=== PATIENT | female | born 1960 | race Caucasian/White ===

== ENCOUNTER 2020-09-29 05:56 | Emergency (ER) | payer MEDICARE, MEDICAID, SELFPAY ==
[2020-09-29 06:04] VITALS: BP 124/58; PULSE 75; RESP 18; TEMP 36.9; O2SAT 98; BMI 29.2
--- NOTE | 2020-09-29 06:45 | XR_ITS ---
EXAMINATION: XR CHEST CLINICAL INFORMATION: Dyspnea COMPARISON: Chest radiograph 04/15/2018 TECHNIQUE: Frontal view of the chest was obtained. FINDINGS: Multiple artifacts overlie the thorax. The cardiomediastinal silhouette is normal in appearance. No effusions or pneumothoraces are visualized. A normal pattern of pulmonary vasculature is noted. No pulmonary consolidation is identified. XR/XR chest 1V IMPRESSION: Normal chest. Lungs clear.
--- NOTE | 2020-09-29 06:51 | ED.SKABFB ---
HPI - Skin/Abscess/Foreign Bdy General Chief complaint: Skin/Abscess/Foreign Body Stated complaint: HIP CELLULITIS,DIFF BREATHING Time Seen by Provider: 09/29/20 06:44 Source: patient and old records reviewed Mode of arrival: ambulatory Limitations: no limitations History of Present Illness complaint: rash Onset (ago): hour(s) (about 5 hours ago noted it around 2am) Tetanus up to date: yes Location: generalized (lower abdomen) Severity: moderate Quality: burning Pain Consistency: constant Relieving factors: movement Exacerbating factors: none Context: none Associated symptoms: fever, chills, rigors, nausea and malaise Treatments prior to arrival: none Related Data Home Medications Medication Instructions Recorded Confirmed albuterol 2 mcg INHALATION Q4H PRN 09/29/20 09/29/20 aripiprazole 5 mg PO DAILY 09/29/20 09/29/20 clonazepam 1 mg PO TID 09/29/20 09/29/20 clonidine HCl 0.1 mg PO Q6H PRN 09/29/20 09/29/20 gabapentin 800 mg PO TID 09/29/20 09/29/20 lamotrigine 200 mg PO DAILY 09/29/20 09/29/20 levothyroxine 175 mcg PO DAILY 09/29/20 09/29/20 omeprazole 20 mg PO BID 09/29/20 09/29/20 Previous Rx's Medication Instructions Recorded cephalexin 500 mg PO BID 7 Days #14 cap 09/29/20 doxycycline hyclate 100 mg PO BID 7 Days #14 cap 09/29/20 hydrocodone-acetaminophen 1 tab PO Q6H PRN #12 tab 09/29/20 Allergies Allergy/AdvReac Type Severity Reaction Status Date / Time adhesive tape [Adhesive Tape] Allergy Mild BURNING Unverified 07/28/20 16:04 RASH ciprofloxacin [From Cipro] Allergy Unknown ANAPHYLAXIS Unverified 07/28/20 16:04 Review of Systems Review of Systems: Constitutional : pos Fever, pos Chills ENT/Mouth : No sore throat, No Rhinorrhea Eyes: No Eye Pain, No Swelling, No Redness Cardiovascular : No Chest Pain, No SOB Respiratory : No Cough, No Sputum Gastrointestinal : No Nausea, No Vomiting, No Diarrhea, No abdominal Pain Genitourinary : No Dysuria, No Hematuria Musculoskeletal : No joint pain, No Myalgias, No Joint Swelling Skin : pos Skin Lesions, positive skin rash Neuro : No Weakness, No Numbness, No Headache Psych : No Anxiety, No Depression Heme/Lymph: No Bruising, No Bleeding,No Lymphadenopathy Endocrine : No Polyuria, No Polydipsia All other systems reviewed and are negative [facility] Past Medical History Attestation statement: The following information was validated with the patient. Medical History Anxiety Cellulitis Cholecystectomy planned Hypothyroid Social History Social History Alcohol intake: never Smoking Status: Current every day smoker Substance Use Type: Marijuana Advance Directives: No Advance Directives Information Provided: No Physical Exam Vital Signs: Vital Signs: Last Vital Signs Temp 98.3 F 09/29/20 08:00 Pulse 77 09/29/20 08:00 Resp 16 09/29/20 08:00 BP 121/71 09/29/20 08:00 Pulse Ox 98 09/29/20 08:00 Body Mass Index 29.2 Appearance: Alert. Oriented X3. No acute distress. Eyes: Pupils equal, round and reactive to light. ENT: Pharynx normal. Neck: Normal inspection. Neck supple. CVS: Normal heart rate and rhythm. Pulses normal. Respiratory: No respiratory distress. Breath sounds normal. Abdomen: Soft and mild ttp along lower abdomen there is a 8cm patch in midline erythematous, no fluctuance, no crepitus, no mass felt - superficial, hot to touch Skin: Skin warm and dry. Normal skin color. Normal skin turgor. Extremities: No lower extremity edema. No calf ttp Neuro: Oriented X 3. No motor deficit. No sensory deficit. Course Course Course Narrative: will admit for IV antibiotics patient now refusing admisison for IV antibiotics, hospitalist has seen patient at this time can be DC with precautions MDM - Skin/Abscess/Foreign Bdy MDM Narrative Medical decision making narrative: 60 yo female with reported history of abdominal wall cellulitis in the past resulting in sepsis and ICU stay x 3 weeks per her history (not found in EMR) here with 5 hours of abdominal wall pain/rash consistent with cellulitis, no crepitus felt, VS stable, no concern for abscess or necrotizing infection at this time, likely admit for IV antibiotics pending workup Lab Data Result diagrams: 09/29/20 08:13 09/29/20 08:13 Labs: Lab Results 09/29/20 09/29/20 09/29/20 Range/Units 08:12 08:12 08:12 WBC (4.8-10.8) X10*3/uL RBC (4.20-5.50) X10*6/uL Hgb (12.0-16.0) g/dl Hct (37-47) % MCV (80-98) fL MCH (27.0-33.0) pg MCHC (31.0-35.0) g/dl RDW (11.0-16.0) % Plt Count (160-400) X10*3/uL MPV (9.4-12.3) fL Immature Gran % (Auto) (0.0-0.4) % Neut % (Auto) (45-73) % Lymph % (Auto) (20-40) % [place] % (Auto) (2-11) % Eos % (Auto) (0-4) % Baso % (Auto) (0-2) % Lymph # (Auto) (1.2-4.9) X10*3/uL [place] # (Auto) (0.1-1.2) X10*3/uL Eos # (Auto) (0.0-0.4) X10*3/uL Baso # (Auto) (0.0-0.2) X10*3/uL Abs Immat Gran (auto) (0.00-0.03) X10*3/uL Absolute Neuts (auto) (2.0-8.3) X10*3/uL Absolute Nucleated RBC (0.0-0.012) X10*3/uL Nucleated RBC % (auto) (0.0-0.2) /100WBC PT 12.7 (10.8-13.0) SEC INR 1.1 (0.9-1.1) APTT 29.7 (24.1-38.0) SEC Sodium (135-145) mmol/L Potassium (3.3-5.1) mmol/l Chloride (96-108) mmol/L Carbon Dioxide (22-29) mmol/L Anion Gap (12-20) BUN (9-16) mg/dL Creatinine (0.5-1.4) mg/dL Estim Creat Clear Calc Estimated GFR Random Glucose (60-115) mg/dL Lactic Acid 1.0 (0.5-2.0) mmol/L Calcium (8.4-10.2) mg/dL Magnesium (1.6-2.6) mg/dL Total Bilirubin (0.0-1.0) mg/dL Direct Bilirubin (0.0-0.5) mg/dL AST (5-31) U/L ALT (0-31) U/L Alkaline Phosphatase (39-117) U/L Total Creatine Kinase (26-140) U/L Total Protein (6.5-8.0) g/dL Albumin (3.5-5.0) g/dL Lipase (8-78) U/L COVID-19 (VICKIE) Negative (Negative) COVID-19 Clin Com See Note 09/29/20 09/29/20 Range/Units 08:13 08:13 WBC 11.0 H (4.8-10.8) X10*3/uL RBC 4.65 (4.20-5.50) X10*6/uL Hgb 14.4 (12.0-16.0) g/dl Hct 42.7 (37-47) % MCV 91.8 (80-98) fL MCH 31.0 (27.0-33.0) pg MCHC 33.7 (31.0-35.0) g/dl RDW 11.9 (11.0-16.0) % Plt Count 242 (160-400) X10*3/uL MPV 9.9 (9.4-12.3) fL Immature Gran % (Auto) 0.2 (0.0-0.4) % Neut % (Auto) 63.8 (45-73) % Lymph % (Auto) 27.2 (20-40) % [place] % (Auto) 7.2 (2-11) % Eos % (Auto) 1.1 (0-4) % Baso % (Auto) 0.5 (0-2) % Lymph # (Auto) 3.0 (1.2-4.9) X10*3/uL [place] # (Auto) 0.8 (0.1-1.2) X10*3/uL Eos # (Auto) 0.1 (0.0-0.4) X10*3/uL Baso # (Auto) 0.1 (0.0-0.2) X10*3/uL Abs Immat Gran (auto) 0.02 (0.00-0.03) X10*3/uL Absolute Neuts (auto) 7.0 (2.0-8.3) X10*3/uL Absolute Nucleated RBC 0.000 (0.0-0.012) X10*3/uL Nucleated RBC % (auto) 0.0 (0.0-0.2) /100WBC PT (10.8-13.0) SEC INR (0.9-1.1) APTT (24.1-38.0) SEC Sodium 140 (135-145) mmol/L Potassium 3.8 (3.3-5.1) mmol/l Chloride 101 (96-108) mmol/L Carbon Dioxide 32 H (22-29) mmol/L Anion Gap 11 L (12-20) BUN 12 (9-16) mg/dL Creatinine 0.68 (0.5-1.4) mg/dL Estim Creat Clear Calc 90.8 Estimated GFR > 60 Random Glucose 110 (60-115) mg/dL Lactic Acid (0.5-2.0) mmol/L Calcium 8.6 (8.4-10.2) mg/dL Magnesium 1.9 (1.6-2.6) mg/dL Total Bilirubin 0.8 (0.0-1.0) mg/dL Direct Bilirubin 0.4 (0.0-0.5) mg/dL AST 11 (5-31) U/L ALT 10 (0-31) U/L Alkaline Phosphatase 70 (39-117) U/L Total Creatine Kinase 23 L (26-140) U/L Total Protein 5.8 L (6.5-8.0) g/dL Albumin 3.7 (3.5-5.0) g/dL Lipase 46 (8-78) U/L COVID-19 (VICKIE) (Negative) COVID-19 Clin Com Discharge Plan Discharge Clinical Impression: Cellulitis Qualifiers: Site of cellulitis: trunk Site of cellulitis of trunk: abdominal wall Qualified Code(s): L03.311 - Cellulitis of abdominal wall Patient Disposition: Home, Self-Care Instructions: Cellulitis (ED) Additional Instructions: return to ED for any worsening symptoms or concerns you were offered admission but refused, come back at any time Prescriptions: New hydrocodone-acetaminophen 5-325 mg tablet 1 tab PO Q6H PRN (Reason: pain) Qty: 12 RF: 0 doxycycline hyclate 100 mg capsule 100 mg PO BID 7 Days Qty: 14 RF: 0 cephalexin 500 mg capsule 500 mg PO BID 7 Days Qty: 14 RF: 0 No Action levothyroxine 175 mcg Tablet 175 mcg PO DAILY RF: 0 clonidine HCl 0.1 mg Tablet 0.1 mg PO Q6H PRN (Reason: Anxiety) RF: 0 lamotrigine 200 mg Tablet 200 mg PO DAILY RF: 0 clonazepam 1 mg Tablet 1 mg PO TID RF: 0 gabapentin 800 mg Tablet 800 mg PO TID RF: 0 omeprazole 20 mg Capsule,Delayed Release(Dr/Ec) 20 mg PO BID RF: 0 albuterol 90 mcg/actuation Aerosol 2 mcg INHALATION Q4H PRN (Reason: Shortness Of Breath) RF: 0 aripiprazole 5 mg Tablet 5 mg PO DAILY RF: 0 Referrals: Chel Rodgers MD [Primary Care Provider] - 2 days
[2020-09-29] MEDS: Morphine Sulfate 4 MG/ML CARTRIDGE IVPUSH (07:05)
[2020-09-29] MEDS: ondansetron HCL 4 MG/2 ML VIAL IVPUSH (07:05)
[2020-09-29] MEDS: 0.9 % Sodium Chloride 1,000 ML 999 ML IVCONT (07:05)
[2020-09-29 08:00] VITALS: BP 121/71; PULSE 77; RESP 16; TEMP 36.8; O2SAT 98
[2020-09-29 08:23] LABS: MANUAL DIFF FLAG NO
[2020-09-29 08:24] LABS: Basophils Absolute Auto 0.1 X10*3/uL (0.0-0.2); Basophils Percent Auto 0.5 % (0-2); Eosinophils Absolute Auto 0.1 X10*3/uL (0.0-0.4); Eosinophils Percent Auto 1.1 % (0-4); Hematocrit 42.7 % (37-47); Hemoglobin 14.4 g/dl (12.0-16.0); Imm Gran Abs Auto 0.02 X10*3/uL (0.00-0.03); Imm Gran Pct Auto 0.2 % (0.0-0.4); Lymphocytes Percent Auto 27.2 % (20-40); Mean Corpuscular HGB Conc 33.7 g/dl (31.0-35.0); Mean Corpuscular Volume 91.8 fL (80-98); Mean Platelet Volume 9.9 fL (9.4-12.3); Monocytes Absolute Auto 0.8 X10*3/uL (0.1-1.2); Monocytes Percent Auto 7.2 % (2-11); Neutrophils Percent Auto 63.8 % (45-73); Platelet Count 242 X10*3/uL (160-400); Red Blood Count 4.65 X10*6/uL (4.20-5.50); Red Cell Distribution Width 11.9 % (11.0-16.0)
[2020-09-29 08:29] LABS: INTERNATIONAL NORM RATIO 1.1 (0.9-1.1); Prothrombin Time 12.7 SEC (10.8-13.0)
[2020-09-29 08:32] LABS: Partial Thromboplastin Time 29.7 SEC (24.1-38.0)
[2020-09-29] MEDS: HYDROmorphone HCl 1 MG/ML SYRINGE IVPUSH (08:33)
[2020-09-29] MEDS: Piperacillin Sodium/Tazobactam 3.375 GM in 0.9 % Sodium Chloride 50 ML IV (08:34)
[2020-09-29] MEDS: vancomycin HCL 1,000 MG in 0.9 % Sodium Chloride 250 ML 270 MG IV (08:37)
[2020-09-29 08:45] LABS: COVID-19 Test Negative (Negative); IDNOW Serial# 9DD0AD1C
[2020-09-29 08:52] LABS: Alanine Aminotransferase 10 U/L (0-31); Albumin Level 3.7 g/dL (3.5-5.0); Alkaline Phosphatase 70 U/L (39-117); Anion Gap 11 (12-20); Aspartate Amino Transferase 11 U/L (5-31); Bilirubin Direct 0.4 mg/dL (0.0-0.5); Bilirubin Total 0.8 mg/dL (0.0-1.0); Blood Urea Nitrogen 12 mg/dL (9-16); Calcium 8.6 mg/dL (8.4-10.2); Carbon Dioxide 32 mmol/L (22-29); Chloride 101 mmol/L (96-108); Creatinine Clr Calc Pharmacy 90.8; Estimated Glomerular Filt Rate > 60; Glucose Random 110 mg/dL (60-115); Lipase 46 U/L (8-78); Magnesium 1.9 mg/dL (1.6-2.6); Potassium 3.8 mmol/l (3.3-5.1); Sodium 140 mmol/L (135-145); Total Protein 5.8 g/dL (6.5-8.0)
== END 2020-09-29 10:45 | disposition home or self-care (01) ==
PROVIDERS: Emergency Provider Emergency Medicine; PCP Internal Medicine
DX: L03.311 Cellulitis of abdominal wall (principal); F12.90 Cannabis use, unspecified, uncomplicated; F17.200 Nicotine dependence, unspecified, uncomplicated; Z71.6 Tobacco abuse counseling; Z79.899 Other long term (current) drug therapy; Z20.828 Contact with and (suspected) exposure to other viral communicable diseases
CPT/HCPCS: 36415; 71045; 80048; 80076; 82550; 83605; 83690; 83735; 85025; 85610; 85730; 87040; 87635; 96365; 96367; 96375; 99284; J1170; J2270; J2405; J2543; J3370

== ENCOUNTER 2021-04-25 03:59 | Emergency (ER) | payer MEDICARE, MEDICAID, SELFPAY ==
--- NOTE | ~2021-04-25 | CT_ITS ---
EXAMINATION: CT ABDOMEN AND PELVIS WITHOUT CONTRAST CLINICAL INFORMATION: Pain out of proportion COMPARISON: 07/23/2018 TECHNIQUE: Multidetector volumetric imaging was performed from the superior aspect of the liver through the pubic symphysis. Sagittal and coronal reformatted images were obtained on the technologist's workstation. This CT examination was performed using dose optimization techniques as appropriate, variously including the following: *Automated exposure control *Adjustment of mA and/or kV according to patient size (this includes techniques or standardized protocols for targeted exams where dose is matched to indication/reason for exam; i.e. extremities or head) *Use of iterative reconstruction technique DLP: 835 mGy-cm FINDINGS: LUNG BASES: The visualized lung bases are unremarkable. LIVER, GALLBLADDER, AND BILIARY TREE: The liver is normal in size, shape, and attenuation. No focal hepatic lesion or biliary ductal dilatation is present. Cholecystectomy. PANCREAS: Unremarkable. SPLEEN: Unremarkable. ADRENAL GLANDS: Unremarkable. KIDNEYS AND URETERS: The kidneys are normal in size, shape, and attenuation. No hydronephrosis, hydroureter, or calculi seen. No perinephric stranding. BLADDER: Unremarkable. GASTROINTESTINAL TRACT: The small and large bowel are unremarkable. The appendix is unremarkable. It seen is haziness of the small bowel mesentery with perivascular sparing compatible with mesenteric panniculitis. ABDOMINAL WALL: Small fat-containing umbilical hernia. LYMPH NODES: Normal. VASCULAR: Aorta mildly atherosclerotic. No aneurysm. PELVIC VISCERA: Unremarkable. OSSEOUS STRUCTURES: No acute or suspicious osseous abnormalities. CT/CT abdomen pelvis wo con IMPRESSION: No acute findings within the abdomen or pelvis to explain the patient's symptomatology. 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 Small fat-containing umbilical hernia.
--- NOTE | ~2021-04-25 | XR_ITS ---
EXAMINATION: XR CHEST CLINICAL INFORMATION: Shortness of breath COMPARISON: 09/29/2020 TECHNIQUE: Frontal view of the chest was obtained. FINDINGS: No significant abnormality is noted involving the heart, lungs, mediastinum, bony thorax or soft tissues. XR/XR chest 1V IMPRESSION: Unremarkable examination.
[2021-04-25 04:04] VITALS: BP 131/67; PULSE 62; RESP 16; TEMP 36.8; O2SAT 97; BMI 34.1
[2021-04-25 05:23] LABS: MANUAL DIFF FLAG NO
[2021-04-25 05:24] VITALS: RESP 16
[2021-04-25 05:24] LABS: Basophils Absolute Auto 0.1 X10*3/uL (0.0-0.2); Basophils Percent Auto 0.4 % (0-2); Eosinophils Absolute Auto 0.3 X10*3/uL (0.0-0.4); Eosinophils Percent Auto 2.7 % (0-4); Hematocrit 44.4 % (37-47); Imm Gran Abs Auto 0.03 X10*3/uL (0.00-0.03); Imm Gran Pct Auto 0.2 % (0.0-0.4); Lymphocytes Absolute Auto 4.3 X10*3/uL (1.2-4.9); Lymphocytes Percent Auto 33.9 % (20-40); Mean Corpuscular HGB Conc 33.8 g/dl (31.0-35.0); Mean Corpuscular Hemoglobin 29.9 pg (27.0-33.0); Mean Corpuscular Volume 88.4 fL (80-98); Mean Platelet Volume 9.8 fL (9.4-12.3); Monocytes Absolute Auto 0.8 X10*3/uL (0.1-1.2); Monocytes Percent Auto 5.9 % (2-11); Neutrophils Absolute Auto 7.2 X10*3/uL (2.0-8.3); Neutrophils Percent Auto 56.9 % (45-73); Platelet Count 234 X10*3/uL (160-400); Red Blood Count 5.02 X10*6/uL (4.20-5.50); Red Cell Distribution Width 12.6 % (11.0-16.0); White Blood Count 12.6 X10*3/uL (4.8-10.8)
[2021-04-25] MEDS: HYDROmorphone HCl 0.5 MG/0.5 ML SYRINGE SUBCUT (05:24)
[2021-04-25 05:29] LABS: Prothrombin Time 11.4 SEC (10.8-13.0)
[2021-04-25] MEDS: 0.9 % Sodium Chloride 1,000 ML 999 ML IV (05:30)
[2021-04-25 05:48] LABS: Alanine Aminotransferase 9 U/L (0-31); Albumin Level 4.1 g/dL (3.5-5.0); Alkaline Phosphatase 58 U/L (39-117); Anion Gap 13 (12-20); Aspartate Amino Transferase 12 U/L (5-31); Bilirubin Direct 0.2 mg/dL (0.0-0.5); Bilirubin Total 0.6 mg/dL (0.0-1.0); Blood Urea Nitrogen 14 mg/dL (9-16); Calcium 9.6 mg/dL (8.4-10.2); Carbon Dioxide 28 mmol/L (22-29); Chloride 105 mmol/L (96-108); Creatinine Clr Calc Pharmacy 85.5; Estimated Glomerular Filt Rate > 60; Glucose Random 105 mg/dL (60-115); Lipase 30 U/L (8-78); Potassium 4.1 mmol/L (3.3-5.1); Sodium 142 mmol/L (135-145); Total Protein 6.1 g/dL (6.5-8.0)
[2021-04-25 06:20] LABS: Glucose, Whole Blood 108 mg/dL (60-115)
--- NOTE | 2021-04-25 06:25 | ED_ITS ---
HPI - Skin/Abscess/Foreign Bdy General Chief complaint: Skin/Abscess/Foreign Body Stated complaint: RLQ CELLULITIS PER PT Time Seen by Provider: 04/25/21 05:00 History of Present Illness HPI narrative: Patient is a 60-year-old female presents today with having pain over her right groin area. Patient has a history of fungal infection to the skin folds. Now is having increasing in amount of pain. Hence presented to the emergency department for further evaluation. Patient denies any fever chills. Pain is worse with movement. Excruciating 08/20. Patient from home. Related Data Home Medications Medication Instructions Recorded Confirmed albuterol 2 mcg INHALATION Q4H PRN 09/29/20 09/29/20 aripiprazole 5 mg PO DAILY 09/29/20 09/29/20 clonazepam 1 mg PO TID 09/29/20 09/29/20 clonidine HCl 0.1 mg PO Q6H PRN 09/29/20 09/29/20 gabapentin 800 mg PO TID 09/29/20 09/29/20 lamotrigine 200 mg PO DAILY 09/29/20 09/29/20 levothyroxine 175 mcg PO DAILY 09/29/20 09/29/20 omeprazole 20 mg PO BID 09/29/20 09/29/20 Previous Rx's Medication Instructions Recorded cephalexin 500 mg PO BID 7 Days #14 cap 09/29/20 doxycycline hyclate 100 mg PO BID 7 Days #14 cap 09/29/20 hydrocodone-acetaminophen 1 tab PO Q6H PRN #12 tab 09/29/20 doxycycline hyclate 100 mg PO BID 7 Days #14 cap 04/25/21 nystatin [Nyamyc] 1 appl TOPICAL BID #30 g 04/25/21 Allergies Allergy/AdvReac Type Severity Reaction Status Date / Time adhesive tape [Adhesive Tape] Allergy Mild BURNING Unverified 07/28/20 16:04 RASH ciprofloxacin [From Cipro] Allergy Unknown ANAPHYLAXIS Unverified 07/28/20 16:04 Review of Systems Review of Systems: Constitutional: No Weight loss, No Fever, No Chills, No Night Sweats, No Fatigue, No Malaise ENT/Mouth: No Hearing loss, No Ear Pain, No Nasal Congestion, No Sinus Pain, No Hoarseness, No sore throat, No Rhinorrhea, No Swallowing Difficulty Eyes: No Eye Pain, No Swelling, No Redness, No Foreign Body, No Discharge, No Vision Changes Cardiovascular: No Chest Pain, No SOB, No Dyspnea on Exertion, No Orthopnea, No Edema, No Palpitations Respiratory: No Cough, No Sputum, No Wheezing, No Smoke Exposure, No Dyspnea Gastrointestinal: No Nausea, No Vomiting, No Diarrhea, No Constipation, No abdominal Pain, No Hematochezia, No Melena Genitourinary: no irregular bleeding, No Dysuria, No Urinary Frequency, No Hematuria, No Urinary Incontinence, No Urgency, No Flank Pain, No Urinary Flow Changes, No Hesitancy Musculoskeletal: No joint pain, No Myalgias, No Joint Swelling Skin: Positive skin rash to the groin area Neuro: No Weakness, No Numbness, No Paresthesias, No Loss of Consciousness, No Dizziness, No Headache Psych: No Anxiety/Panic, No Depression, No SI/HI/AH/VH, No Social Issues, Heme/Lymph: No Bruising, No Bleeding,No Lymphadenopathy Endocrine: No Polyuria, No Polydipsia, No Temperature Intolerance [facility] Past Medical History Attestation statement: The following information was validated with the patient. Medical History Anxiety Cellulitis Cholecystectomy planned Hypothyroid Social History Social History Alcohol intake: never Substance Use Type: Marijuana Advance Directives: No Advance Directives Information Provided: No Patient : No Physical Exam Vital Signs: Vital Signs: Last Vital Signs Temp 98.2 F 04/25/21 04:04 Pulse 62 04/25/21 04:04 Resp 16 04/25/21 05:24 BP 131/67 04/25/21 04:04 Pulse Ox 97 04/25/21 04:04 Body Mass Index 34.1 Appearance: Alert. Oriented X3. No acute distress. Eyes: Pupils equal, round and reactive to light. ENT: Pharynx normal. Neck: Normal inspection. Neck supple. No lymph nodes noted. No crepitus CVS: Normal heart rate and rhythm. Pulses normal. Normal S1 and S2 Respiratory: No respiratory distress. Breath sounds normal. No Wheezing. No rales Abdomen: Soft and nontender. No rigidity. No distention. good BS x4 Skin: Positive moist skin lesion over the left groin area. With surrounding erythema. There is no crepitus on palpation. The lesion is approximately 10 cm x 4 cm in size. Extremities: No lower extremity edema. Neurovascular intact to all extremities. No Lacerations. No Rash Neuro: Oriented X 3. No motor deficit. No sensory deficit. Moving all extermities. No slurred speech MDM - Skin/Abscess/Foreign Bdy MDM Narrative Medical decision making narrative: Patient's white count is 12. CT scan of the abdomen pelvis did not show any acute evidence of necrotizing fasciitis. No abscess. Will start patient on doxycycline for cellulitis. Will have patient use nystatin powder. Close follow-up on an outpatient basis. In stable condition. Lab Data Result diagrams: 04/25/21 05:17 04/25/21 05:16 Labs: Lab Results 04/25/21 04/25/21 04/25/21 Range/Units 05:16 05:16 05:16 WBC (4.8-10.8) X10*3/uL RBC (4.20-5.50) X10*6/uL Hgb (12.0-16.0) g/dl Hct (37-47) % MCV (80-98) fL MCH (27.0-33.0) pg MCHC (31.0-35.0) g/dl RDW (11.0-16.0) % Plt Count (160-400) X10*3/uL MPV (9.4-12.3) fL Immature Gran % (Auto) (0.0-0.4) % Neut % (Auto) (45-73) % Lymph % (Auto) (20-40) % [place] % (Auto) (2-11) % Eos % (Auto) (0-4) % Baso % (Auto) (0-2) % Lymph # (Auto) (1.2-4.9) X10*3/uL [place] # (Auto) (0.1-1.2) X10*3/uL Eos # (Auto) (0.0-0.4) X10*3/uL Baso # (Auto) (0.0-0.2) X10*3/uL Abs Immat Gran (auto) (0.00-0.03) X10*3/uL Absolute Neuts (auto) (2.0-8.3) X10*3/uL Absolute Nucleated RBC (0.0-0.012) X10*3/uL Nucleated RBC % (auto) (0.0-0.2) /100WBC PT 11.4 (10.8-13.0) SEC INR 1.0 (0.9-1.1) Sodium 142 (135-145) mmol/L Potassium 4.1 (3.3-5.1) mmol/L Chloride 105 (96-108) mmol/L Carbon Dioxide 28 (22-29) mmol/L Anion Gap 13 (12-20) BUN 14 (9-16) mg/dL Creatinine 0.78 (0.5-1.4) mg/dL Estim Creat Clear Calc 85.5 Estimated GFR > 60 POC Glucose (60-115) mg/dL Random Glucose 105 (60-115) mg/dL Lactic Acid 2.0 (0.5-2.0) mmol/L Calcium 9.6 D (8.4-10.2) mg/dL Total Bilirubin 0.6 (0.0-1.0) mg/dL Direct Bilirubin 0.2 (0.0-0.5) mg/dL AST 12 (5-31) U/L ALT 9 (0-31) U/L Alkaline Phosphatase 58 (39-117) U/L Total Protein 6.1 L (6.5-8.0) g/dL Albumin 4.1 (3.5-5.0) g/dL Lipase 30 (8-78) U/L 04/25/21 04/25/21 Range/Units 05:17 06:12 WBC 12.6 H (4.8-10.8) X10*3/uL RBC 5.02 (4.20-5.50) X10*6/uL Hgb 15.0 (12.0-16.0) g/dl Hct 44.4 (37-47) % MCV 88.4 (80-98) fL MCH 29.9 (27.0-33.0) pg MCHC 33.8 (31.0-35.0) g/dl RDW 12.6 (11.0-16.0) % Plt Count 234 (160-400) X10*3/uL MPV 9.8 (9.4-12.3) fL Immature Gran % (Auto) 0.2 (0.0-0.4) % Neut % (Auto) 56.9 (45-73) % Lymph % (Auto) 33.9 (20-40) % [place] % (Auto) 5.9 (2-11) % Eos % (Auto) 2.7 (0-4) % Baso % (Auto) 0.4 (0-2) % Lymph # (Auto) 4.3 (1.2-4.9) X10*3/uL [place] # (Auto) 0.8 (0.1-1.2) X10*3/uL Eos # (Auto) 0.3 (0.0-0.4) X10*3/uL Baso # (Auto) 0.1 (0.0-0.2) X10*3/uL Abs Immat Gran (auto) 0.03 (0.00-0.03) X10*3/uL Absolute Neuts (auto) 7.2 (2.0-8.3) X10*3/uL Absolute Nucleated RBC 0.000 (0.0-0.012) X10*3/uL Nucleated RBC % (auto) 0.0 (0.0-0.2) /100WBC PT (10.8-13.0) SEC INR (0.9-1.1) Sodium (135-145) mmol/L Potassium (3.3-5.1) mmol/L Chloride (96-108) mmol/L Carbon Dioxide (22-29) mmol/L Anion Gap (12-20) BUN (9-16) mg/dL Creatinine (0.5-1.4) mg/dL Estim Creat Clear Calc Estimated GFR POC Glucose 108 (60-115) mg/dL Random Glucose (60-115) mg/dL Lactic Acid (0.5-2.0) mmol/L Calcium (8.4-10.2) mg/dL Total Bilirubin (0.0-1.0) mg/dL Direct Bilirubin (0.0-0.5) mg/dL AST (5-31) U/L ALT (0-31) U/L Alkaline Phosphatase (39-117) U/L Total Protein (6.5-8.0) g/dL Albumin (3.5-5.0) g/dL Lipase (8-78) U/L Discharge Plan Discharge Clinical Impression: Cellulitis, Tinea corporis Patient Disposition: Home, Self-Care Instructions: Cellulitis (ED), Skin Yeast Infection (ED) Prescriptions: New doxycycline hyclate 100 mg capsule 100 mg PO BID 7 Days Qty: 14 RF: 0 nystatin [Nyamyc] 100,000 unit/gram powder 1 appl topical BID Qty: 30 RF: 0 No Action levothyroxine 175 mcg Tablet 175 mcg PO DAILY RF: 0 clonidine HCl 0.1 mg Tablet 0.1 mg PO Q6H PRN (Reason: Anxiety) RF: 0 lamotrigine 200 mg Tablet 200 mg PO DAILY RF: 0 clonazepam 1 mg Tablet 1 mg PO TID RF: 0 gabapentin 800 mg Tablet 800 mg PO TID RF: 0 omeprazole 20 mg Capsule,Delayed Release(Dr/Ec) 20 mg PO BID RF: 0 albuterol 90 mcg/actuation Aerosol 2 mcg INHALATION Q4H PRN (Reason: Shortness Of Breath) RF: 0 aripiprazole 5 mg Tablet 5 mg PO DAILY RF: 0 hydrocodone-acetaminophen 5-325 mg tablet 1 tab PO Q6H PRN (Reason: pain) Qty: 12 RF: 0 doxycycline hyclate 100 mg capsule 100 mg PO BID 7 Days Qty: 14 RF: 0 cephalexin 500 mg capsule 500 mg PO BID 7 Days Qty: 14 RF: 0
[2021-04-25 06:58] VITALS: BP 123/66; PULSE 52; RESP 18; TEMP 36.8; O2SAT 96
== END 2021-04-25 07:07 | disposition home or self-care (01) ==
PROVIDERS: Emergency Provider Emergency Medicine Emergency Medical Services
DX: L03.818 Cellulitis of other sites (principal); B35.4 Tinea corporis
CPT/HCPCS: 36415; 71045; 74176; 80048; 80076; 82947; 83605; 83690; 85025; 85610; 87040; 96360; 96361; 96372; 99284; J1170

== ENCOUNTER → 2022-10-01 11:12 | Outpatient (BNVA) | payer MEDICARE, MEDICAID, SELFPAY | PROVIDERS: Visit Provider Psychiatry & Neurology Psychiatry | DX: F31.81 Bipolar II disorder (principal); F43.10 Post-traumatic stress disorder, unspecified | CPT/HCPCS: 90833; 99212 ==

== ENCOUNTER → 2023-04-29 17:02 | Outpatient (BNVA) | payer MEDICARE, MEDICAID, SELFPAY | PROVIDERS: Visit Provider Psychiatry & Neurology Psychiatry | DX: F43.10 Post-traumatic stress disorder, unspecified (principal); F31.81 Bipolar II disorder | CPT/HCPCS: 99212 ==

== ENCOUNTER 2023-05-27 10:47 | Outpatient (AMB) | payer MEDICARE, MEDICAID, SELFPAY ==
--- NOTE | 2023-05-27 11:25 | AM.OFFWIN_ITS ---
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 she feels chest pressure, she has also been feeling very short of breath when doing small tasks. Patient Tobacco Use Status: Current everyday Tobacco user Allergies adhesive tape [Adhesive Tape] Allergy (Mild, Unverified 05/27/23 12:08) BURNING RASH ciprofloxacin [From Cipro] Allergy (Unknown, Unverified 05/27/23 12:08) ANAPHYLAXIS Medication List - Last Reconciled 05/27/23 by Rm Johnson MD albuterol 90 mcg/actuation 2 mcg inhalation Q4H PRN albuterol sulfate 90 mcg/actuation (Ventolin HFA) 2 puffs inhalation Q4H PRN clonazepam 1 mg PO TID gabapentin 400 mg PO BID lamotrigine (Lamictal) 100 mg PO DAILY levothyroxine 175 mcg PO DAILY nystatin (Nyamyc) 1 appl topical BID Do you need a note to return to daycare/school/sports/work: No 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 Patient is complaining of shortness of breath. Symptoms started a couple weeks ago. Worse on exertion. No fevers. Patient had gone to another walk-in and given inhalers. She reports symptoms have not improved. [facility] Medical History (Updated 05/27/23 @ 12:06 by Rm Johnson MD) Anxiety Asthma Bipolar 2 disorder Cellulitis Cholecystectomy planned Hypothyroid Post traumatic stress disorder (PTSD) Social History Alcohol intake: never Patient Tobacco Use Status: Current everyday Tobacco user Substance Use Type: Marijuana Physical Exam Vital Signs: Last Vital Signs Temp 97.4 F 05/27/23 11:32 Pulse 66 05/27/23 11:32 BP 120/76 05/27/23 11:32 Pulse Ox 97 05/27/23 11:32 Oxygen Delivery Method Room Air 05/27/23 11:32 Const General: cooperative and healthy appearing Nutritional Appearance: well nourished Orientation/consciousness: patient oriented x3 Limitations: no limitations HEENT Head: Yes normal to inspection Eyes General: appearance normal, both eyes and all related structures Neck Neck: Yes normal visual inspection Chest Chest palpation & inspection: normal palpation of entire chest wall Resp Effort & Inspection: normal respiratory effort Neuro General: patient oriented x3 Office Procedures EKG Details: Sinus bradycardia [id number], Complete Assessment & Plan Assessment & Plan (1) Shortness of breath: Code(s): R06.02 - Shortness of breath Plan: X-ray images were personally reviewed by me. Antibiotics called in. If symptoms do not improve to follow-up here. Orders: Orders XR chest 2V Today R06.02 - Shortness of breath AMB EKG-In Office Today R07.9 - Chest pain, unspecified Coding Level of Care Code Est Pt Level 4 (52777) Diagnoses Shortness of breath R06.02 CPT Codes EKG - CPT: 03701-[id number], Complete ([id number])
[2023-05-27 11:32] VITALS: BP 120/76; PULSE 66; TEMP 36.3; O2SAT 97
== END 2023-05-27 13:29 | disposition home or self-care (01) ==
PROVIDERS: Visit Provider Internal Medicine
DX: R06.02 Shortness of breath (principal)
CPT/HCPCS: 93000; 99214

== ENCOUNTER 2023-05-27 12:10 | Outpatient (REF) | payer MEDICARE, MEDICAID, SELFPAY ==
--- NOTE | ~2023-05-27 | XR_ITS ---
EXAMINATION: XR CHEST CLINICAL INFORMATION: Shortness of breath COMPARISON: Chest 04/25/2021 TECHNIQUE: 2 views of the chest were obtained. FINDINGS: No significant abnormality is noted involving the heart, lungs, mediastinum, bony thorax or soft tissues. XR/XR chest 2V IMPRESSION: Unremarkable chest examination. No change from previous exam 04/25/2021
== END 2023-05-27 12:11 | disposition home or self-care (01) ==
LOC: HO.HMGCX 12:10
PROVIDERS: Visit Provider Internal Medicine
DX: R06.02 Shortness of breath (principal)
CPT/HCPCS: 71046

== ENCOUNTER 2023-08-01 13:05 | Outpatient (AMB) | payer MEDICARE, MEDICAID, SELFPAY ==
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
== END 2023-08-01 14:32 | disposition home or self-care (01) ==
LOC: HO.HOP 13:05
PROVIDERS: PCP Physician Assistant; Visit Provider Psychiatry & Neurology Psychiatry
DX: F43.10 Post-traumatic stress disorder, unspecified (principal); F31.81 Bipolar II disorder; J45.909 Unspecified asthma, uncomplicated
CPT/HCPCS: 90833; 99213

== ENCOUNTER → 2023-08-01 13:05 | Outpatient (BNVA) | payer MEDICARE, MEDICAID, SELFPAY | PROVIDERS: PCP Physician Assistant; Visit Provider Psychiatry & Neurology Psychiatry | DX: F31.81 Bipolar II disorder (principal); F43.10 Post-traumatic stress disorder, unspecified; J45.909 Unspecified asthma, uncomplicated; Z79.899 Other long term (current) drug therapy | CPT/HCPCS: 90833; 99212 ==

== ENCOUNTER 2023-09-18 17:15 | Outpatient (AMB) | payer MEDICARE, MEDICAID, SELFPAY ==
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
== END 2023-09-18 17:16 | disposition home or self-care (01) ==
LOC: HO.HOP 17:15
PROVIDERS: PCP Physician Assistant; Visit Provider Psychiatry & Neurology Psychiatry
DX: F31.81 Bipolar II disorder (principal); F43.11 Post-traumatic stress disorder, acute
CPT/HCPCS: 90833; 99213

== ENCOUNTER → 2023-09-18 17:15 | Outpatient (BNVA) | payer MEDICARE, MEDICAID, SELFPAY | PROVIDERS: PCP Physician Assistant; Visit Provider Psychiatry & Neurology Psychiatry | DX: F43.10 Post-traumatic stress disorder, unspecified (principal); F31.81 Bipolar II disorder | CPT/HCPCS: 90833 ==

== ENCOUNTER 2024-01-07 09:39 | Outpatient (AMB) | payer MEDICARE, MEDICAID, SELFPAY ==
--- NOTE | 2024-01-07 11:19 | MHC.OFFWIV ---
Intake Intake Visit Reasons: EP labored breathing ausea headache throat [id number] Intake Note: pt is here today for labored breathing nausea headache throat started Patient Tobacco Use Status: Current everyday Tobacco user Allergies adhesive tape [Adhesive Tape] Allergy (Mild, Verified 01/07/24 11:20) BURNING RASH ciprofloxacin [From Cipro] Allergy (Unknown, Verified 01/07/24 11:20) ANAPHYLAXIS Do you need a note to return to daycare/school/sports/work: No PFSH Medical History Post traumatic stress disorder (PTSD) Bipolar 2 disorder Asthma Cholecystectomy planned Cellulitis Hypothyroid Anxiety Social History Alcohol intake: never Patient Tobacco Use Status: Current everyday Tobacco user Substance Use Type: Marijuana Coding
[2024-01-07 11:31] VITALS: BP 120/82; PULSE 60; TEMP 36.7; O2SAT 99; BMI 35.3
--- NOTE | 2024-01-07 11:31 | AM.OFFWIN_ITS ---
Intake Vital Signs 01/07/24 11:31 Height 5 ft 5 in Weight 212 lb BMI 35.3 BP 120/82 Blood Pressure Location Lt brachial Position Sitting Pulse 60 Pulse Source Pulse Oximeter Temp 98.0 F Temp Source Temporal Artery Scan Pulse Oximetry (%) 99 Oxygen Delivery Method Room Air Intake Visit Reasons: EP labored breathing ausea headache throat [id number] Intake Note: pt is here today for labored breathing nausea headache throat started 1 month ago Patient Tobacco Use Status: Current everyday Tobacco user Allergies adhesive tape [Adhesive Tape] Allergy (Mild, Verified 01/07/24 11:57) BURNING RASH ciprofloxacin [From Cipro] Allergy (Unknown, Verified 01/07/24 11:57) ANAPHYLAXIS Medication List - Last Reconciled 01/07/24 by DANIELLA Tran albuterol 90 mcg/actuation 2 mcg inhalation Q4H PRN albuterol sulfate 90 mcg/actuation (Ventolin HFA) 2 puffs inhalation Q4H PRN aripiprazole (Abilify) 5 mg PO BEDTIME clonazepam 0.5 - 1 mg (0.5 - 1 x 1 mg) PO TID epinephrine 0.3 mL IM ONCE PRN fluticasone propionate 110 mcg/actuation (Flovent HFA) inhalation gabapentin 400 mg PO BID lamotrigine 150 mg PO DAILY levothyroxine (Synthroid) 137 mcg PO DAILY nystatin (Nyamyc) 1 appl topical BID Do you need a note to return to daycare/school/sports/work: No HPI HPI Comments History of Present Illness Details Patient is a 63-year-old female in today for sick visit. She has a past medical history significant for asthma, PTSD, bipolar 2 disorder. She states that over the past week and a half she has developed symptoms of sore throat, cough, nausea, chest wall pain, dyspnea on exertion. Denies shortness of breast, chest pain, vomiting, diarrhea. She has used [id number] medication with little relief. Denies sick contacts. Denies recent travel. She is a current every day tobacco smoker. [facility] Medical History Post traumatic stress disorder (PTSD) Bipolar 2 disorder Asthma Cholecystectomy planned Cellulitis Hypothyroid Anxiety Social History Alcohol intake: never Patient Tobacco Use Status: Current everyday Tobacco user Substance Use Type: Marijuana Review of Systems Const Details: Constitutional : No Weight loss, Admits intermittent Fever, No Chills, No Fatigue, Admits some Malaise ENT/Mouth : Admits sore throat, No Rhinorrhea, Admits ear fullness. Eyes: No Eye Pain, No Swelling, No Redness. Cardiovascular : No Chest Pain, No SOB, Admits some Dyspnea on Exertion, No Orthopnea, No Edema, No Palpitations Respiratory : Admits Cough, No Sputum, Admits Wheezing Gastrointestinal : Admits some Nausea, No Vomiting, No Diarrhea, No Constipation, No abdominal Pain, No Hematochezia, No Melena Genitourinary : No Dysuria, No Urinary Frequency, No Hematuria, Musculoskeletal : Admits chest wall pain. Skin : No Skin Lesions, No rash Neuro : No Weakness, No Numbness, No Dizziness, No Headache Psych : No Anxiety/Panic, No Depression All other systems reviewed and are negative Physical Exam Vital Signs: Last Vital Signs Temp 98.0 F 01/07/24 11:31 Pulse 60 01/07/24 11:31 BP 120/82 01/07/24 11:31 Pulse Ox 99 01/07/24 11:31 Oxygen Delivery Method Room Air 01/07/24 11:31 BMI result Body Mass Index 35.3 Const Other: Appearance: Alert.? Oriented X3.? No acute distress.? Head: Normocephalic, atraumatic. ENT: Pharynx erythema. No exudate on tonsils. TM intact, effusion bilaterally. ? Neck: Normal inspection.? Neck supple.?Full ROM. CVS: Normal heart rate and rhythm.? Pulses normal.? Respiratory: No respiratory distress.? Breath Diminished bilaterally. ? Abdomen: Soft and nontender.? Skin: Skin warm and dry.? Normal skin color.? Normal skin turgor.? Extremities: No lower extremity edema.? No calf ttp. 5/5 strength to bilateral upper and lower extremities Back: No midline tenderness, no C-spine tenderness, full range of motion, no CVA tenderness bilaterally Neuro: Oriented X 3.? No motor deficit.? No sensory deficit. CN 2-12 intact Office Procedures EKG [id number], Complete Nebulizer Treatment Nebulizer Treatment 41902-Ixpcbbssz/MDI RX initial, or Nebulizer Subsequent Treatment Office Meds ipratropium 0.5 mg-albuterol 3 mg (2.5 mg base)/3 mL nebulization uhbert Performing Provider: DANIELLA Tran Performing Location: [facility] [place] [facility] Administered by: DANIELLA Tran on 01/07/24 12:25 Dose Route Admin Location Dispensed Lot Number Expiration Date [employer] 3 mL inhalation 3 mL 08/11/24 0142-7060-81 [employer] [facility] Results AMB Rapid Strep AMB Rapid Strep Negative Last Edit by MORALES Garcia on 01/07/24 11:56 Results Reviewed Results Reviewed: Laboratory Last Values Strep Scn Rapid Clinic Negative 01/07/24 11:55 Assessment & Plan Assessment & Plan (1) Upper respiratory infection: Comment: Patient had EKG, chest x-ray, URI swab, strep swab. Patient will also have labs CMP/CBC. Patient will also have in office nebulizer treatment. Will prescribe patient Augmentin, and prednisone to be taken as directed. Code(s): J06.9 - Acute upper respiratory infection, unspecified Qualifiers: URI type: unspecified URI Qualified Code(s): J06.9 - Acute upper respiratory infection, unspecified Plan: Take your medications as prescribed. If you were prescribed antibiotics today, it is important that you take your medication to their entirety, do not skip any doses, do not finish them early. Follow-up with your primary care provider this week. Return to the emergency department with new or worsening symptoms. Such as fevers, chills, chest pain, shortness of breath, nausea, vomiting, dizziness, headache, vision changes, lethargy In case of emergency call 911 Plan Follow-up with PCP Orders: Orders AMB Rapid Strep Screen Today Z13.9 - Encounter for screening, unspecified Kaitlin Ontiveros PA-C AMB EKG-In Office Today R07.9 - Chest pain, unspecified DANIELLA Tran SARS-CoV2/FLU/RSV Today J06.9 - Acute upper respiratory infection, unspecified DANIELLA Tran XR chest 2V Today R07.9 - Chest pain, unspecified DANIELLA Tran Complete Blood Count Auto Diff Today D72.829 - Elevated white blood cell count, unspecified DANIELLA Tran Comprehensive Met. Panel Today Z91.89 - Other specified personal risk factors, not elsewhere classified DANIELLA Tran AMB Nebulizer Treatment Today R06.02 - Shortness of breath DANIELLA Tran Medications: New prednisone 20 mg PO BID 10 tabs 0RF DANIELLA Tran amoxicillin-pot clavulanate 875-125 mg 1 tab PO Q12H 20 tabs 0RF DANIELLA Tran Coding Level of Care Code Est Pt Level 3 (95818) Diagnoses Upper respiratory tract infection, unspecified type J06.9 URI type: unspecified URI CPT Codes EKG - CPT: 01607-[id number], Complete ([id number]) Nebulizer Treatment - Nebulizer Treatment, initial or subsequent: 19421- Nebulizer/MDI RX initial, or Nebulizer Subsequent Treatment ([id number]) Time Spent (min) 21
== END 2024-01-07 16:37 | disposition home or self-care (01) ==
PROVIDERS: PCP Physician Assistant; Visit Provider Nurse Practitioner Primary Care
DX: J06.9 Acute upper respiratory infection, unspecified (principal)
CPT/HCPCS: 87880; 93000; 94640; 99214; J7620

== ENCOUNTER 2024-01-07 12:20 | Outpatient (REF) | payer MEDICARE, MEDICAID, SELFPAY ==
--- NOTE | ~2024-01-07 | XR_ITS ---
EXAMINATION: XR CHEST CLINICAL INFORMATION: Chest pain COMPARISON: 05/27/2023 TECHNIQUE: 2 views of the chest were obtained. FINDINGS: Unchanged mild left base scarring/atelectasis. Heart, mediastinum, pulmonary vessels and lung g[place] otherwise within normal limits. Degenerative changes. XR/XR chest 2V IMPRESSION: Stable left base scarring/atelectasis. No acute cardiopulmonary disease.
[2024-01-07 15:32] LABS: Influenza A PCR NEGATIVE (Negative); Influenza B PCR NEGATIVE (Negative); Resp Syncy Virus RNA Qual PCR NEGATIVE (Negative); SARS COV2 PCR INHOUSE NEGATIVE (Negative)
[2024-01-07 16:11] LABS: MANUAL DIFF FLAG NO
[2024-01-07 16:14] LABS: Basophils Absolute Auto 0.1 X10*3/uL (0.0-0.2); Basophils Percent Auto 1.4 % (0-2); Eosinophils Absolute Auto 0.3 X10*3/uL (0.0-0.4); Eosinophils Percent Auto 4.2 % (0-4); Hemoglobin 15.8 g/dl (12.0-16.0); Imm Gran Abs Auto 0.02 X10*3/uL (0.00-0.03); Imm Gran Pct Auto 0.3 % (0.0-0.4); Lymphocytes Percent Auto 31.2 % (20-40); Mean Corpuscular HGB Conc 33.6 g/dl (31.0-35.0); Mean Corpuscular Hemoglobin 28.6 pg (27.0-33.0); Monocytes Absolute Auto 0.5 X10*3/uL (0.1-1.2); Monocytes Percent Auto 7.9 % (2-11); Neutrophils Absolute Auto 3.6 x10*3/uL (2.0-8.3); Platelet Count 280 X10*3/uL (160-400); Red Blood Count 5.53 X10*6/uL (4.20-5.50); Red Cell Distribution Width 13.3 % (11.0-16.0); White Blood Count 6.5 X10*3/uL (4.8-10.8)
[2024-01-07 16:31] LABS: Alanine Aminotransferase 8 U/L (0-31); Albumin Level 4.5 g/dL (3.5-5.0); Alkaline Phosphatase 84 U/L (39-117); Anion Gap 13 (12-20); Aspartate Amino Transferase 14 U/L (5-31); Bilirubin Total 0.9 mg/dL (0.0-1.0); Blood Urea Nitrogen 12 mg/dL (9-16); Calcium 9.9 mg/dL (8.4-10.2); Carbon Dioxide 28 mmol/L (22-29); Chloride 103 mmol/L (96-108); Estimated Glomerular Filt Rate > 60; Glucose Random 84 mg/dL (60-115); Potassium 4.1 mmol/L (3.3-5.1); Sodium 140 mmol/L (135-145); Total Protein 7.4 g/dL (6.5-8.0)
== END 2024-01-07 12:21 | disposition home or self-care (01) ==
LOC: HO.HMGCX 12:20
PROVIDERS: Visit Provider Nurse Practitioner Primary Care
DX: R07.9 Chest pain, unspecified (principal); J06.9 Acute upper respiratory infection, unspecified; D72.829 Elevated white blood cell count, unspecified; Z91.89 Other specified personal risk factors, not elsewhere classified; Z11.52 Encounter for screening for COVID-19; Z20.828 Contact with and (suspected) exposure to other viral communicable diseases
CPT/HCPCS: 0241U; 36415; 71046; 80053; 85025

== ENCOUNTER 2024-01-09 14:24 | Emergency (ER) | payer MEDICARE, MEDICAID, SELFPAY ==
[2024-01-09] VITALS (7 sets, daily range): BP systolic 143–178; BP diastolic 51–84; PULSE 58–82; RESP 18–21; TEMP 36.7–36.8; O2SAT 95–98; BMI 37.5
--- NOTE | 2024-01-09 | ECG_ITS ---
Test Reason : CHEST PAIN Blood Pressure : / mmHG Vent. Rate : 070 BPM Atrial Rate : 070 BPM P-R Int : 154 ms QRS Dur : 078 ms QT Int : 422 ms P-R-T Axes : 076 -06 025 degrees QTc Int : 455 ms Normal sinus rhythm Normal EKG When compared with ECG of 04-JUN-2019 19:09, No significant change was found Referred By: Generic ED Physician Electronically Signed By:GODWIN BUTLER
--- NOTE | ~2024-01-09 | XR_ITS ---
EXAMINATION: XR CHEST CLINICAL INFORMATION: Chest pain COMPARISON: Chest 01/07/2024 TECHNIQUE: 2 views of the chest were obtained. FINDINGS: No significant abnormality is noted involving the heart, lungs, mediastinum, bony thorax or soft tissues. XR/XR chest 2V IMPRESSION: Unremarkable examination.
--- NOTE | 2024-01-09 15:05 | PC.NURSE ---
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
[2024-01-09 15:11] LABS: MANUAL DIFF FLAG NO
[2024-01-09 15:12] LABS: Basophils Percent Auto 0.2 % (0-2); Eosinophils Percent Auto 0.1 % (0-4); Hematocrit 44.9 % (37.0-47.0); Hemoglobin 15.3 g/dl (12.0-16.0); Imm Gran Abs Auto 0.22 X10*3/uL (0.00-0.03); Imm Gran Pct Auto 2.3 % (0.0-0.4); Lymphocytes Absolute Auto 1.2 X10*3/uL (1.2-4.9); Lymphocytes Percent Auto 12.6 % (20-40); Mean Corpuscular HGB Conc 34.1 g/dl (31.0-35.0); Mean Corpuscular Hemoglobin 28.7 pg (27.0-33.0); Mean Corpuscular Volume 84.1 fL (80.0-98.0); Mean Platelet Volume 9.5 fL (9.4-12.3); Monocytes Absolute Auto 0.6 X10*3/uL (0.1-1.2); Neutrophils Absolute Auto 7.6 x10*3/uL (2.0-8.3); Neutrophils Percent Auto 78.8 % (45-73); Platelet Count 310 X10*3/uL (160-400); Red Blood Count 5.34 X10*6/uL (4.20-5.50); Red Cell Distribution Width 13.3 % (11.0-16.0); White Blood Count 9.7 X10*3/uL (4.8-10.8)
[2024-01-09 15:18] LABS: INTERNATIONAL NORM RATIO 0.9 (0.9-1.1)
[2024-01-09 15:20] LABS: Partial Thromboplastin Time 26.8 SEC (26.0-36.8)
[2024-01-09 15:28] LABS: Alanine Aminotransferase 9 U/L (0-31); Albumin Level 4.4 g/dL (3.5-5.0); Alkaline Phosphatase 74 U/L (39-117); Anion Gap 15 (12-20); Aspartate Amino Transferase 12 U/L (5-31); Bilirubin Total 0.4 mg/dL (0.0-1.0); Blood Urea Nitrogen 14 mg/dL (9-16); Calcium 9.3 mg/dL (8.4-10.2); Carbon Dioxide 27 mmol/L (22-29); Chloride 105 mmol/L (96-108); Creatinine Clr Calc Pharmacy 73.4; Estimated Glomerular Filt Rate > 60; Glucose Random 198 mg/dL (60-115); Magnesium 2.3 mg/dL (1.6-2.6); Potassium 3.5 mmol/L (3.3-5.1); Sodium 143 mmol/L (135-145)
[2024-01-09 15:35] LABS: B Type Natriuretic Peptide 48 pg/mL (<100)
[2024-01-09 15:41] LABS: Troponin-I High Sensitivity 59.9 ng/L (<3.5-17.0)
--- NOTE | 2024-01-09 15:42 | ED_ITS ---
HPI - Chest Pain General Chief Complaint: Chest Pain Stated Complaint: CHEST PAIN RECENT PNEUMONIA Time Seen by Provider: 01/09/24 15:42 Source: patient and EMS Mode of arrival: EMS Limitations: no limitations History of Present Illness HPI narrative: Patient is a 63 year old assigned female at with a history of bipolar disorder, PTSD, and asthma presenting to the emergency department today with chest pain. Patient states that 2 days ago she was diagnosed with pneumonia at a walk in clinic and was given an inhaler, nebulizer, antibiotics, and prednisone. Patient states that today she began to have mid chest pain that radiates to the left chest. Patient denies any dizziness, lightheadedness, abdominal pain, nausea, vomiting, fever, chills, blurry vision, double vision, loss of vision, back pain, night sweats, pain with urination, increased urinary frequency, increased urinary urgency, blood in her urine or stool, syncope or a near syncopal episode, recent trauma or falls, bowel incontinence, bladder incontinence, bowel retention, bladder retention, or any other complaints at this time. MD complaint: chest pain Context: recent illness Risk Factors Coronary artery disease risk factors: none Related Data Home Medications Medication Instructions Recorded Confirmed albuterol 90 mcg/actuation aerosol 2 mcg inhalation Q4H PRN Shortness 09/29/20 01/07/24 inhaler Of Breath gabapentin 400 mg capsule 400 mg PO BID 10/01/22 01/07/24 albuterol sulfate 90 mcg/actuation 2 puff inhalation Q4H PRN dyspnea 04/29/23 01/07/24 aerosol inhaler (Ventolin HFA) epinephrine 0.3 mg/0.3 mL 0.3 ml IM ONCE PRN 08/01/23 01/07/24 injection, auto-injector fluticasone propionate 110 inhalation 08/01/23 01/07/24 mcg/actuation HFA aerosol inhaler (Flovent HFA) levothyroxine 137 mcg tablet 137 mcg PO DAILY 08/01/23 01/07/24 (Synthroid) Previous Rx's Medication Instructions Recorded nystatin 100,000 unit/gram topical 1 appl topical BID #30 grams 04/25/21 powder (Nyamyc) lamotrigine 150 mg tablet 150 mg PO DAILY #30 tabs 08/01/23 aripiprazole 5 mg tablet (Abilify) 5 mg PO BEDTIME #30 tabs 12/16/23 clonazepam 1 mg tablet 0.5 - 1 mg (0.5 - 1 x 1 mg) PO TID 12/18/23 #90 tabs amoxicillin 875 mg-potassium 1 tab PO Q12H #20 tabs 01/07/24 clavulanate 125 mg tablet ondansetron 4 mg disintegrating 4 mg PO Q8H PRN nausea and 01/07/24 tablet vomiting #10 tabs prednisone 20 mg tablet 20 mg PO BID #10 tabs 01/07/24 Allergies Allergy/AdvReac Type Severity Reaction Status Date / Time adhesive tape [Adhesive Tape] Allergy Mild BURNING Verified 01/09/24 14:45 RASH ciprofloxacin [From Cipro] Allergy Unknown ANAPHYLAXIS Verified 01/09/24 14:45 Review of Systems 2 Constitutional: Constitutional: Reports no additional constitutional complaints, Denies chills, Denies fever(s) and Denies night sweats Eyes: Eyes: Reports no additional eye complaints, Denies blurry vision, Denies change in vision, Denies diplopia, Denies eye discharge, Denies loss of vision and Denies eye pain ENT: Denies dizziness Cardiovascular: Cardiovascular: Reports no additional cardiovascular complaints, Reports chest pain, Denies lightheadedness, Denies Loss of Consciousness and Denies dyspnea Respiratory: Respiratory: Reports no additional respiratory complaints and Denies dyspnea Gastrointestinal: Gastrointestinal: Reports no additional gastrointestinal complaints, Denies abdominal pain, Denies melena, Denies hematochezia, Denies change in bowel habits and Denies change in stool character Genitourinary: Genitourinary: Denies hematuria, Denies urinary frequency, Denies dysuria, Denies urinary incontinence, Denies urinary hesitancy and Denies urinary urgency Musculoskeletal: Musculoskeletal: Reports no additional musculoskeletal complaints, Denies numbness and Denies tingling Neurologic: Denies dizziness, Denies loss of vision, Denies numbness and Denies tingling Psychiatric: Psychiatric: Reports no additional psychiatric complaints Endocrine: Endocrine: Reports no additional endocrine complaints Hematologic/Lymphatic: Hematologic/Lymphatic: Reports no additional hematologic/lymphatic complaints Allergic/Immunologic: Allergic/Immunologic: Reports no additional allergic/immunologic complaints PMFSH Past Medical History Attestation statement: The following information was validated with the patient. Source: old records reviewed and nursing notes reviewed Medical History Pneumonia Post traumatic stress disorder (PTSD) Bipolar 2 disorder Asthma Cholecystectomy planned Cellulitis Hypothyroid Anxiety Social History Social History Alcohol intake: never Patient Tobacco Use Status: Current everyday Tobacco user Smoked in Last 30 Days: Yes Use of substances other than those prescribed or required for medical reasons: Yes Substance Use Type: Marijuana Advance Directives: No Advance Directives Information Provided: No Patient : No Physical Exam 2 Vital Signs: Vital Signs: Last Vital Signs Temp 98.2 F 01/09/24 18:39 Pulse 62 01/09/24 19:06 Resp 18 01/09/24 18:39 BP 160/51 H 01/09/24 19:06 Pulse Ox 95 01/09/24 18:39 O2 Del Method Room Air 01/09/24 18:39 BMI result Body Mass Index 37.5 Const: General: cooperative, no acute distress, alert and awake Nutritional Appearance: well nourished Orientation/consciousness: patient oriented x3 Limitations: no limitations HEENT: Head: Yes normal to inspection and Yes atraumatic Ears: hearing grossly normal bilaterally and external ears normal General nose exam: Normal external nose present, no nasal discharge noted and no epistaxis Face and sinus: Yes normal facial exam, No abrasion and No laceration Mouth: Normal oral and palatal mucosa present, no drooling and no muffled voice Eyes: General: appearance normal, both eyes and all related structures P eriorbital: periorbital findings normal Eyelids: Yes eyelids normal C onjunctivae: conjunctivae normal Pupils: Equal, round and reactive pupils present EOM: EOMs intact bilaterally Neck: Neck: Yes normal visual inspection, Yes full ROM and Yes no lymphadenopathy Chest: Chest palpation & inspection: normal inspection of the chest Resp: Effort & Inspection: normal respiratory effort and able to speak in complete sentences Auscultation: clear to auscultation bilaterally Cardio: Rate: regular rate Rhythm: regular rhythm GI: Inspection: Yes normal to inspection Neuro: General: patient oriented x3 and moves all extremities Cranial nerves: Yes Equal, round and reactive pupils present Cognition (Neuro): n ormal cognition Motor exam (neuro): 5/5 motor strength present throughout Sensory Exam: Normal double simultaneous stimulation for sensation C oordination: [id number] test normal Extrem: General: Yes normal to inspection, Yes full ROM and Yes capillary refill normal Psych: Appearance: grossly normal Mental Status: mental status grossly normal Affect: normal affect Attitude: cooperative Thought process: N ormal thought process present Thought content: Normal thought content present Insight: Good insight present (Psych) Course Reevaluation(s) Reevaluation #1: Received a call from the lab regarding critical delta troponin; to 93.9 which is increased from prior at 59.9. Upon speaking with patient she reports to me that she has been experiencing shortness of breath over the past month, with notable dyspnea on exertion, she attributed this to walking up many flights of stairs in a new apartment, which prompted her visit to urgent care 2 days ago. When asked she denies having any recent URI symptoms, denies having had a sore throat, rhinorrhea, nasal congestion. She does admit that she developed a mild cough yesterday. She states 2 days ago on 01/07 after returning home from the urgent Care she experienced severe substernal chest pain that lasted about 10 minutes before self-resolving. Today prior to her arrival to the ED she experienced what she reports as severe sudden shortness of breath, nausea, substernal chest pain, sensation like someone is ?sitting on my chest?, and then vomited, reports feeling diaphoretic as well. EMS administered aspirin 324 mg. She reports pain resolves shortly after being here and then 1 hour later she developed a squeezing sensation to the left anterior chest which is still present. Reports pain is 8/10. Repeat EKG is without acute ischemic changes, appears relatively unchanged when compared to prior EKG earlier today. Will trial nitro for pain relief at this time and plan to consult Cardiology. Time: 18:13 Reevaluation #2: Spoke with Dr. Ansari from cardiology who recommends initiating heparin drip and transfer to [facility] for NSTEMI. Patient updated on plan of care. Chest pain unrelieved by nitroglycerin, received morphine IV. Reevaluation #3: Accepted to [facility] PCU, Dr. Landrum. Medications Administered Generic Name Dose Route Start Last Admin Trade Name Freq PRN Reason Stop Dose Admin Sodium Chloride 1,000 mls @ 999 mls/hr 01/09/24 18:45 01/09/24 18:42 Ns IV 01/09/24 19:45 999 mls/hr .Q1H1M ELIDA Administration Heparin Sodium/Sodium Chloride 25,000 unit in 250 mls @ 0 mls/hr 01/09/24 19:00 01/09/24 19:26 Heparin Sodium,Porcine/1/2ns IVCONT 10.09 units/kg/hr .Q0M ELIDA 10 mls/hr Administration Protocol Per Protocol Nitroglycerin 0.4 mg 01/09/24 18:33 01/09/24 19:18 Nitroglycerin 0.4 Mg Tab.Subl SUBLINGUAL 0.4 mg Q5MX3 PRN Administration Chest Pain Discontinued Medications Generic Name Dose Route Start Last Admin Trade Name Freq PRN Reason Stop Dose Admin Atorvastatin Calcium 80 mg 01/09/24 19:04 01/09/24 19:18 Atorvastatin Calcium 80 Mg Tablet PO 01/09/24 19:05 80 mg ONCE ONE Administration Albuterol Sulfate 2.5 mg/ 0 mg 01/09/24 15:59 01/09/24 16:04 Albuterol/Ipratropium 3 ml INHALE 01/09/24 16:00 1 dose ONCE ONE Administration Heparin Sodium (Porcine) 4,000 unit 01/09/24 18:56 01/09/24 19:19 Heparin Sodium,Porcine 5,000 Unit/Ml Vial IVPUSH 01/09/24 18:57 4,000 unit ONCE ONE Administration Morphine Sulfate 4 mg 01/09/24 15:51 01/09/24 16:32 Morphine Sulfate 4 Mg/Ml Cartridge IVPUSH 01/09/24 15:52 4 mg ONCE ONE Administration Protocol Ondansetron HCl 4 mg 01/09/24 16:36 01/09/24 16:38 Ondansetron Hcl 4 Mg/2 Ml Vial IVPUSH 01/09/24 16:37 4 mg ONCE ONE Administration Pantoprazole Sodium 40 mg 01/09/24 15:51 01/09/24 16:32 Pantoprazole Sodium 40 Mg/10 Ml Vial IVPUSH 01/09/24 15:52 40 mg ONCE ONE Administration Medical Decision Making Medical Decision Making MDM Narrative: Patient is a 63 year old assigned female at with a history of asthma, bipolar disorder, and PTSD presenting to the emergency department today with chest pain. Patient's physical exam was unremarkable. Patient's blood work showed an elevated trop of 59.9, repeat is pending. Patient's EKG was unremarkable. Patient's chest x-ray is pending. I explained my physical exam findings as well as all test results to the patient. I answered all questions asked by the patient. Patient's disposition will be determined after d-dimer and repeat troponin result. Patient signed out to evening OLAF. Differential Diagnosis Differential Diagnoses: The differential diagnosis associated with the presentation includes [place] STEMI NSTEMI Chest pain PE Admission/Observation Consideration of admission/observation: Escalation of care including admission/observation considered Patient's disposition will be determined after repeat troponin and d-dimer result. Lab Data [facility] Lab Attestation statement: I reviewed the patient's lab results. My interpretation of these results are in the [facility] Rationale portion of this note. 01/09/24 19:12 01/09/24 15:04 Labs: Lab Results 01/09/24 01/09/24 01/09/24 Range/Units 15:04 17:31 19:12 WBC 9.7 10.5 (4.8-10.8) X10*3/uL RBC 5.34 5.12 (4.20-5.50) X10*6/uL Hgb 15.3 14.7 (12.0-16.0) g/dl Hct 44.9 43.4 (37.0-47.0) % MCV 84.1 84.8 (80.0-98.0) fL MCH 28.7 28.7 (27.0-33.0) pg MCHC 34.1 33.9 (31.0-35.0) g/dl RDW 13.3 13.3 (11.0-16.0) % Plt Count 310 293 (160-400) X10*3/uL MPV 9.5 9.6 (9.4-12.3) fL Immature Gran % (Auto) 2.3 H (0.0-0.4) % Neut % (Auto) 78.8 H (45-73) % Lymph % (Auto) 12.6 L (20-40) % [place] % (Auto) 6.0 (2-11) % Eos % (Auto) 0.1 (0-4) % Baso % (Auto) 0.2 (0-2) % Lymph # (Auto) 1.2 (1.2-4.9) X10*3/uL [place] # (Auto) 0.6 (0.1-1.2) X10*3/uL Eos # (Auto) 0.0 (0.0-0.4) X10*3/uL Baso # (Auto) 0.0 (0.0-0.2) X10*3/uL Abs Immat Gran (auto) 0.22 H (0.00-0.03) X10*3/uL Absolute Neuts (auto) 7.6 (2.0-8.3) x10*3/uL Absolute Nucleated RBC 0.000 0.000 (0.0-0.012) X10*3/uL Nucleated RBC % (auto) 0.0 0.0 (0.0-0.2) /100WBC PT 11.0 L (11.1-13.3) SEC INR 0.9 (0.9-1.1) APTT 26.8 (26.0-36.8) SEC D-Dimer High Sensitivty < 150 NG/ML Sodium 143 (135-145) mmol/L Potassium 3.5 (3.3-5.1) mmol/L Chloride 105 (96-108) mmol/L Carbon Dioxide 27 (22-29) mmol/L Anion Gap 15 (12-20) BUN 14 (9-16) mg/dL Creatinine 0.92 (0.5-1.4) mg/dL Estim Creat Clear Calc 73.4 Estimated GFR > 60 Random Glucose 198 H (60-115) mg/dL Calcium 9.3 D (8.4-10.2) mg/dL Magnesium 2.3 (1.6-2.6) mg/dL Total Bilirubin 0.4 (0.0-1.0) mg/dL AST 12 (5-31) U/L ALT 9 (0-31) U/L Alkaline Phosphatase 74 (39-117) U/L Troponin I High Sens 59.9 H* 293.9 H* D (<3.5-17.0) ng/L B-Natriuretic Peptide 48 (<100) pg/mL Total Protein 7.0 (6.5-8.0) g/dL Albumin 4.4 (3.5-5.0) g/dL Influenza Type A (PCR) NEGATIVE (Negative) Influenza Type B (PCR) NEGATIVE (Negative) RSV RNA Qual (PCR) NEGATIVE (Negative) SARS-CoV-2 RNA (RT-PCR) NEGATIVE (Negative) Independent Interpretation I performed an independent interpretation of an: EKG Interpretation: Vent. Rate: 070 BPM Atrial Rate: 070 BPM P-R Int: 154 ms QRS Dur: 078 ms QT Int: 422 ms P-R-T Axes: 076 -06 025 degrees QTc Int: 455 ms Normal sinus rhythm Nonspecific ST and T wave abnormality Abnormal ECG When compared with ECG of 04-JUN-2019 19:09, No significant change was found DD/ [id number] Radiology Impression Discussion of test interpretation with radiology: I have reviewed the radiologist's reading. Independent Historian Clinical information obtained from an independent historian. History obtained from or confirmed by: EMS (EMS provided additional history and confirmed the history provided by the patient.) Critical Care Time Critical Care Time Critical Care Time: Yes Total Critical Care Time: 40 Attestation: I spent 40 minutes of Critical Care Time with this patient. This does not include time spent on separately reported billable procedures. Discharge Plan Discharge Clinical Impression: Chest pain Patient Disposition: [facility] Transfer Details: To [facility] Prescriptions: No Action aripiprazole [Abilify] 5 mg tablet 5 mg PO BEDTIME Qty: 30 2RF clonazepam 1 mg tablet 0.5 - 1 mg PO TID Qty: 90 0RF albuterol 90 mcg/actuation Aerosol 2 mcg INHALATION Q4H PRN (Reason: Shortness Of Breath) nystatin [Nyamyc] 100,000 unit/gram powder 1 appl topical BID Qty: 30 0RF prednisone 20 mg tablet 20 mg PO BID Qty: 10 0RF amoxicillin-pot clavulanate 875-125 mg tablet 1 tab PO Q12H Qty: 20 0RF ondansetron 4 mg tablet,disintegrating 4 mg PO Q8H PRN (Reason: nausea and vomiting) Qty: 10 0RF gabapentin 400 mg capsule 400 mg PO BID Rx Instructions: may take extra tab daily as needed albuterol sulfate [Ventolin HFA] 90 mcg/actuation HFA aerosol inhaler 2 puff inhalation Q4H PRN (Reason: dyspnea) fluticasone propionate [Flovent HFA] 110 mcg/actuation HFA aerosol inhaler inhalation levothyroxine [Synthroid] 137 mcg tablet 137 mcg PO DAILY epinephrine 0.3 mg/0.3 mL auto-injector 0.3 ml IM ONCE PRN lamotrigine 150 mg tablet 150 mg PO DAILY Qty: 30 2RF
[2024-01-09 15:50] LABS: Influenza A PCR NEGATIVE (Negative); Influenza B PCR NEGATIVE (Negative); Resp Syncy Virus RNA Qual PCR NEGATIVE (Negative); SARS COV2 PCR INHOUSE NEGATIVE (Negative)
[2024-01-09] MEDS: Albuterol Sulfate 2.5 MG, Albuterol/Iprat 2.5/0.5MG 3 ML 3 ML INHALE (16:04)
[2024-01-09 16:23] LABS: D Dimer High Sensitivity < 150 NG/ML
[2024-01-09] MEDS: Morphine Sulfate 4 MG/ML CARTRIDGE IVPUSH ×2 (16:32→19:51)
[2024-01-09] MEDS: Pantoprazole Sodium 40 MG/10 ML VIAL IVPUSH (16:32)
--- NOTE | 2024-01-09 16:34 | PC.NURSE ---
patient a&ox3, vss, airport manager intact, pt medicated for 8/10 pain, call cardenas within reach, will continue to monitor.
[2024-01-09] MEDS: ondansetron HCL 4 MG/2 ML VIAL IVPUSH (16:38)
--- NOTE | 2024-01-09 16:38 | PC.NURSE ---
pt had nausea with the ivp morphine, pt medicated with zofran per order, will continue to monitor
[2024-01-09 18:13] LABS: Troponin-I High Sensitivity 293.9 ng/L (<3.5-17.0)
--- NOTE | 2024-01-09 18:13 | ECG_ITS ---
Test Reason : REPEAT Blood Pressure : / mmHG Vent. Rate : 056 BPM Atrial Rate : 056 BPM P-R Int : 130 ms QRS Dur : 076 ms QT Int : 432 ms P-R-T Axes : 024 -06 010 degrees QTc Int : 416 ms Sinus bradycardia Nonspecific ST abnormality Abnormal ECG When compared with ECG of 09-JAN-2024 15:18, No significant change was found Referred By: Natividad Valiente Electronically Signed By:GODWIN BUTLER
[2024-01-09] MEDS: Nitroglycerin 0.4 MG TAB.SUBL SUBLINGUAL ×3 (18:40→19:18)
[2024-01-09] MEDS: 0.9 % Sodium Chloride 1,000 ML 999 ML IV (18:42)
--- NOTE | 2024-01-09 18:43 | PC.NURSE ---
second trop was drawn and resulted as increased, pt continues to be sinus roseline on desk monitor, c/o 8/10 mid sternal chest pain, IVF hung per order, nitro given per order, vss, will continue to monitor
[2024-01-09 19:17] LABS: Hematocrit 43.4 % (37.0-47.0); Hemoglobin 14.7 g/dl (12.0-16.0); Mean Corpuscular HGB Conc 33.9 g/dl (31.0-35.0); Mean Corpuscular Hemoglobin 28.7 pg (27.0-33.0); Mean Corpuscular Volume 84.8 fL (80.0-98.0); Mean Platelet Volume 9.6 fL (9.4-12.3); Platelet Count 293 X10*3/uL (160-400); Red Blood Count 5.12 X10*6/uL (4.20-5.50); Red Cell Distribution Width 13.3 % (11.0-16.0); White Blood Count 10.5 X10*3/uL (4.8-10.8)
[2024-01-09] MEDS: Atorvastatin Calcium 80 MG TABLET PO (19:18)
[2024-01-09] MEDS: Heparin Sodium,Porcine 5,000 UNIT/ML VIAL 4000 UNIT IVPUSH (19:19)
[2024-01-09] MEDS: Heparin Sodium,Porcine/1/2NS 25,000 UNIT/250 ML IV.SOLN 10 UNIT IVCONT (19:26)
[2024-01-09 19:27] LABS: INTERNATIONAL NORM RATIO 0.9 (0.9-1.1); Prothrombin Time 11.2 SEC (11.1-13.3)
--- NOTE | 2024-01-09 20:09 | PC.NURSE ---
Report given to Otilia at [facility]. Pt with EMS at this time.
[2024-01-09 20:20] LABS: PTT Heparin Drip 20.2 SEC (53-77.9)
== END 2024-01-09 20:10 | disposition short-term general hospital (02) ==
PROVIDERS: Nurse Practitioner Family; Physician Assistant Medical; Emergency Provider Emergency Medicine Emergency Medical Services
DX: R07.89 Other chest pain (principal); R11.2 Nausea with vomiting, unspecified; R06.02 Shortness of breath; F17.200 Nicotine dependence, unspecified, uncomplicated; Z79.899 Other long term (current) drug therapy; Z11.52 Encounter for screening for COVID-19; Z20.822 Contact with and (suspected) exposure to COVID-19
CPT/HCPCS: 0241U; 36415; 71046; 80053; 83735; 83880; 84484; 85025; 85027; 85379; 85610; 85730; 93005; 94640; 96361; 96374; 96375; 96376; 99285; C9113; J1644; J2270; J2405

== ENCOUNTER → 2024-01-09 15:18 | Outpatient (BNV) | payer MEDICARE, MEDICAID, SELFPAY | PROVIDERS: Emergency Provider Emergency Medicine Emergency Medical Services; Visit Provider Internal Medicine | DX: R07.9 Chest pain, unspecified (principal); R00.1 Bradycardia, unspecified; R94.31 Abnormal electrocardiogram [ECG] [EKG] | CPT/HCPCS: 93010 ==

== ENCOUNTER 2024-01-16 12:11 | Outpatient (AMB) | payer MEDICARE, MEDICAID, SELFPAY ==
--- NOTE | 2024-01-16 12:20 | A.OFFPC_ITS ---
Vital Signs 01/16/24 12:22 Height 5 ft 5 in Weight 216 lb BMI 35.9 BP 120/80 Blood Pressure Location Lt brachial Position Sitting Pulse 62 Pulse Source Pulse Oximeter Pulse Oximetry (%) 98 Oxygen Delivery Method Room Air Intake Visit Reasons: EST Per Wilman Intake Note: Pt is here today for New patient visit.Pt states that she was in a hospital. Allergies adhesive tape [Adhesive Tape] Allergy (Mild, Verified 01/16/24 12:47) BURNING RASH ciprofloxacin [From Cipro] Allergy (Unknown, Verified 01/16/24 12:47) ANAPHYLAXIS Medication List - Last Reconciled 01/16/24 by Wilman Medina, [employer] albuterol 90 mcg/actuation 2 mcg inhalation Q4H PRN albuterol sulfate 90 mcg/actuation (Ventolin HFA) 2 puffs inhalation Q4H PRN amlodipine 2.5 mg PO DAILY amoxicillin-pot clavulanate 875-125 mg 1 tab PO Q12H aripiprazole (Abilify) 5 mg PO BEDTIME PRN aspirin 81 mg PO DAILY clonazepam 0.5 - 1 mg (0.5 - 1 x 1 mg) PO TID epinephrine 0.3 mL IM ONCE PRN fluticasone propionate 110 mcg/actuation (Flovent HFA) inhalation gabapentin 600 mg PO BID lamotrigine 150 mg PO DAILY levothyroxine (Synthroid) 137 mcg PO DAILY ondansetron 4 mg PO Q8H PRN rosuvastatin 40 mg PO DAILY ticagrelor (Brilinta) 90 mg PO BID Tobacco use date assessed: 01/16/24 Dental Screening Dental Screen Date: 01/16/24 Did you have a dental visit in the last 12 months?: Yes Did you have a dental problem in the last 6 months where you did not have access to dental care?: No Was dental information given to patient?: Patient has dentist HPI HPI Comments History of Present Illness Details Patient is a 63-year-old female here to establish care. She has not had a primary care provider in several years. She was recently discharged from [facility] following an NSTEMI, and had a procedure to place a stent to LCX. She was discharged on Ticagrelor, rosuvastatin, aspirin and amlodipine, and Augmentin. Patient will need to have blood pressure in control. She has follow-up appointment with [facility]. She also has a past medical history significant for hypothyroidism, anxiety, PTSD, asthma, hypertension, chronic back pain, sinus bradycardia. Patient has been instructed that if she experiences any symptoms of chest pain, shortness a breath, dizziness, numbness, chest pressure, nausea, vomiting, and she will need to go to the emergency room. [facility] Medical History (Updated 01/16/24 @ 13:09 by DANIELLA Tran) Pneumonia Post traumatic stress disorder (PTSD) Bipolar 2 disorder Asthma Cholecystectomy planned Cellulitis Hypothyroid Anxiety Surgical History (Updated 01/16/24 @ 12:35 by MADISON Vega) Hx of tubal ligation Hx of bladder repair surgery H/O lumpectomy Hx of cholecystectomy Family History (Updated 01/16/24 @ 12:37 by MADISON Vega) Father No problems noted. Mother Hypertension Diabetes History of open heart surgery Social History Housing: Other Alcohol intake: never Patient Tobacco Use Status: Current everyday Tobacco user Tobacco use type: Cigarette e-Cigarette/Vaping Use: Never Used Substance Use Type: Marijuana Current occupational status: disabled Cognitive needs: No Hearing needs: No Vision needs: No Questionnaire AUDIT C Alcohol Use Questionnaire (AUDIT-C) 1. How often do you have a drink containing alcohol?: Never 3. How often do you have six or more drinks on one occasion?: Never Total Score: 0 Review of Systems Const Details: Constitutional : No Weight loss, No Fever, No Chills, No Fatigue, No Malaise Cardiovascular : No Chest Pain, No SOB, No Dyspnea on Exertion, No Orthopnea, No Edema, No Palpitations Respiratory : No Cough, Admits Sputum, No Wheezing Gastrointestinal : No Nausea, No Vomiting, No Diarrhea, No Constipation, No abdominal Pain, No Hematochezia, No Melena Neuro : No Weakness, No Numbness, No Dizziness, No Headache Psych : No Anxiety/Panic, No Depression Heme/Lymph: Admits Bruising, No Bleeding,No Lymphadenopathy Endocrine : No Polyuria, No Polydipsia All other systems reviewed and are negative Physical exam (Primary Care) Vital Signs: Last Vital Signs Pulse 62 01/16/24 12:22 BP 120/80 01/16/24 12:22 Pulse Ox 98 01/16/24 12:22 Oxygen Delivery Method Room Air 01/16/24 12:22 Care Plan Goal for BP management: Vital signs reviewed and stable. Patient should continue to take 2.5 mg amlodipine. Next steps: Patient has been instructed take blood pressure measurements at home and keep a log BMI result Body Mass Index 35.9 Tobacco/Smoking Status: Tobacco use Status Tobacco use date assessed 01/16/24 01/16/24 12:36 Patient Tobacco Use Status Current everyday Tobacco 01/16/24 12:21 Tobacco use type Cigarette 01/16/24 12:36 e-Cigarette/Vaping Use Never Used 01/16/24 12:36 Const Other: Appearance: Alert.? Oriented X3.? No acute distress.? Neck: Normal inspection.? Neck supple.? CVS: Bradycardic.? Pulses normal.? Respiratory: No respiratory distress.? Breath sounds normal.? Abdomen: Soft and nontender.? Skin: Skin warm and dry. Normal skin turgor.?Patient has bruising on upper arms bilaterally. Extremities: No lower extremity edema.? No calf ttp. 5/5 strength to bilateral upper and lower extremities Neuro: Oriented X 3.? No motor deficit.? No sensory deficit. CN 2-12 intact Office Procedures EKG [id number], Complete Assessment and Plan Assessment & Plan (1) CAD (coronary artery disease): Comment: Patient's blood pressure is in control. She should take blood pressure measurements at home and keep a record of them. Patient should continue taking 2.5 mg amlodipine. EKG in office demonstrated sinus bradycardia which is consistent with patient's past EKGs and EKG while admitted at [facility]. Patient should continue to take medications she was discharged with rosuvastatin, Brilinta, aspirin, amlodipine. Code(s): I25.10 - Atherosclerotic heart disease of [place] coronary artery without angina pectoris Qualifiers: Associated angina: without angina Coronary Disease-Associated Artery/Lesion type: unspecified vessel or lesion type [place] vs. transplanted heart: [place] heart Qualified Code(s): I25.10 - Atherosclerotic heart disease of [place] coronary artery without angina pectoris Plan: Take your medications as prescribed. If you were prescribed antibiotics today, it is important that you take your medication to their entirety, do not skip any doses, do not finish them early. Follow-up with your primary care provider this week. Return to the emergency department with new or worsening symptoms. Such as fevers, chills, chest pain, shortness of breath, nausea, vomiting, dizziness, headache, vision changes, lethargy In case of emergency call 911 (2) Smoking: Comment: Patient states she does not want smoking cessation at this time. She states she has not wanted to smoke since she was discharged from the hospital. The patient has has been educated on the importance of discontinuing smoking cigarettes and nicotine use. Code(s): F17.200 - Nicotine dependence, unspecified, uncomplicated Plan: Will draw labs today. (3) PNA (pneumonia): Code(s): J18.9 - Pneumonia, unspecified organism Qualifiers: Pneumonia type: due to unspecified organism Laterality: unspecified laterality Lung location: unspecified part of lung Qualified Code(s): J18.9 - Pneumonia, unspecified organism Plan: Patient should complete course of Augmentin she was discharged from [facility] with. Patient has been educated on signs of worsening symptoms when to report back to the office or when to present to the emergency room. Plan Follow-up in 1 month. Patient had [employer] paperwork filled the [employer] parking space for the next 2 months. Orders: Orders Comprehensive Met. Panel 01/16/24 Z91.89 - Other specified personal risk factors, not elsewhere classified Vitamin D 25-OH (D2 and D3) 01/16/24 Z13.21 - Encounter for screening for nutritional disorder UA CC w/rflx Micro + Cult 01/16/24 Z13.89 - Encounter for screening for other disorder Complete Blood Count Auto Diff 01/16/24 Z13.0 - Encounter for screening for diseases of the blood and blood-forming organs and certain disorders involving the immune mechanism Lipid Panel 01/16/24 Z13.220 - Encounter for screening for lipoid disorders Vitamin B6 01/16/24 Z13.21 - Encounter for screening for nutritional disorder Vitamin B12 01/16/24 Z13.21 - Encounter for screening for nutritional disorder TSH reflex Free T4 01/16/24 Z13.29 - Encounter for screening for other suspected endocrine disorder Hemoglobin A1c 01/16/24 Z13.1 - Encounter for screening for diabetes mellitus AMB EKG-In Office 01/16/24 R94.31 - Abnormal electrocardiogram [ECG] [EKG] Medications: New miscellaneous medical supply (Blood Pressure Cuff) As directed 1 ea 0RF Changed From aripiprazole (Abilify) 5 mg PO BEDTIME 30 tabs 2RF To aripiprazole (Abilify) 5 mg PO BEDTIME PRN Coding Level of Care Code Est Pt Level 3 (91460) Diagnoses Coronary artery disease involving [place] heart without angina pectoris, unspecified vessel or lesion type I25.10 Associated angina: without angina Coronary Disease-Associated Artery/Lesion type: unspecified vessel or lesion type [place] vs. transplanted heart: [place] heart Smoking F17.200 Pneumonia due to infectious organism, unspecified laterality, unspecified part of lung J18.9 Pneumonia type: due to unspecified organism Laterality: unspecified laterality Lung location: unspecified part of lung CPT Codes EKG - CPT: 30137-[id number], Complete ([id number])
[2024-01-16 12:22] VITALS: BP 120/80; PULSE 62; O2SAT 98; BMI 35.9
== END 2024-01-16 13:40 | disposition home or self-care (01) ==
PROVIDERS: PCP Physician Assistant; Visit Provider Nurse Practitioner Primary Care
DX: I25.10 Atherosclerotic heart disease of native coronary artery without angina pectoris (principal); F17.210 Nicotine dependence, cigarettes, uncomplicated; J18.9 Pneumonia, unspecified organism
CPT/HCPCS: 93000; 99213

== ENCOUNTER 2024-01-16 13:42 | Outpatient (REF) | payer MEDICARE, MEDICAID, SELFPAY ==
[2024-01-16 16:04] LABS: Appearance Urine Cloudy; Color Urine Dark Yellow; Glucose Urine UA Negative (Negative); Leukocyte Esterase Urine Trace (Negative); Nitrite Urine Negative (Negative); Specific Gravity - Urine 1.025 (1.005-1.025); UMIC TRIGGER UACC YES; Urine Blood Negative (Negative); Urine Ketones Negative (Negative); Urine Protein Trace mg/dL (Neg-Trace)
[2024-01-16 16:07] LABS: Bacteria Urine None Seen (None Seen); Hyaline Casts Urine 0-2 /LPF (0-2); RBC Urine 0-2 /HPF (0-2); WBC Urine 0-5 /HPF (0-5)
[2024-01-16 16:11] LABS: Basophils Absolute Auto 0.1 X10*3/uL (0.0-0.2); Basophils Percent Auto 0.7 % (0-2); Eosinophils Absolute Auto 0.3 X10*3/uL (0.0-0.4); Eosinophils Percent Auto 2.6 % (0-4); Hematocrit 44.3 % (37.0-47.0); Hemoglobin 14.5 g/dl (12.0-16.0); Imm Gran Abs Auto 0.33 X10*3/uL (0.00-0.03); Imm Gran Pct Auto 2.7 % (0.0-0.4); Lymphocytes Absolute Auto 5.4 X10*3/uL (1.2-4.9); Lymphocytes Percent Auto 44.3 % (20-40); MANUAL DIFF FLAG SCAN; Mean Corpuscular HGB Conc 32.7 g/dl (31.0-35.0); Mean Corpuscular Hemoglobin 28.3 pg (27.0-33.0); Mean Corpuscular Volume 86.5 fL (80.0-98.0); Monocytes Absolute Auto 0.9 X10*3/uL (0.1-1.2); Monocytes Percent Auto 6.9 % (2-11); Neutrophils Absolute Auto 5.3 x10*3/uL (2.0-8.3); Neutrophils Percent Auto 42.8 % (45-73); Platelet Count 311 X10*3/uL (160-400); Red Blood Count 5.12 X10*6/uL (4.20-5.50); Red Cell Distribution Width 13.5 % (11.0-16.0); SCAN SMEAR FLAG 1; White Blood Count 12.3 X10*3/uL (4.8-10.8)
[2024-01-16 16:30] LABS: Estimated Average Glucose 117 mg/dL; Hemoglobin A1c % 5.7 % (<6.0)
[2024-01-16 16:38] LABS: Alanine Aminotransferase 14 U/L (0-31); Albumin Level 4.2 g/dL (3.5-5.0); Alkaline Phosphatase 71 U/L (39-117); Anion Gap 12 (12-20); Aspartate Amino Transferase 15 U/L (5-31); Bilirubin Total 0.5 mg/dL (0.0-1.0); Blood Urea Nitrogen 14 mg/dL (9-16); Calcium 9.1 mg/dL (8.4-10.2); Carbon Dioxide 27 mmol/L (22-29); Chloride 103 mmol/L (96-108); Estimated Glomerular Filt Rate > 60; Glucose Random 94 mg/dL (60-115); Potassium 3.8 mmol/L (3.3-5.1); Sodium 138 mmol/L (135-145); Total Protein 6.6 g/dL (6.5-8.0)
[2024-01-16 16:40] LABS: SLIDE REVIEW VERIFIED
[2024-01-16 16:43] LABS: TSH reflex Free T4 15.41 uIU/mL (0.32-4.0)
[2024-01-16 16:54] LABS: Vitamin B12 461 pg/mL (200-900)
[2024-01-16 17:26] LABS: Free T4 (Free Thyroxine) 1.16 ng/dL (0.71-1.85)
[2024-01-21 15:33] LABS: Vitamin D 25-OH, D2 <4 ng/mL; Vitamin D 25-OH, D3 4 ng/mL; Vitamin D 25-OH, Total 4 ng/mL (30-100)
== END 2024-01-16 13:43 | disposition home or self-care (01) ==
LOC: HO.HMGCLDS 13:42
PROVIDERS: PCP Nurse Practitioner Primary Care; Visit Provider Nurse Practitioner Primary Care
DX: Z13.21 Encounter for screening for nutritional disorder (principal); Z13.0 Encounter for screening for diseases of the blood and blood-forming organs and certain disorders involving the immune mechanism; Z13.1 Encounter for screening for diabetes mellitus; Z13.29 Encounter for screening for other suspected endocrine disorder; Z91.89 Other specified personal risk factors, not elsewhere classified; R94.31 Abnormal electrocardiogram [ECG] [EKG]
CPT/HCPCS: 36415; 80053; 81001; 82306; 82607; 83036; 84439; 84443; 85025

== ENCOUNTER 2024-02-03 11:32 | Outpatient (AMB) | payer MEDICARE, MEDICAID, SELFPAY ==
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
== END 2024-02-03 12:15 | disposition home or self-care (01) ==
LOC: HO.HOP 11:32
PROVIDERS: PCP Nurse Practitioner Primary Care; Visit Provider Psychiatry & Neurology Psychiatry
DX: F31.81 Bipolar II disorder (principal); F43.11 Post-traumatic stress disorder, acute; I25.10 Atherosclerotic heart disease of native coronary artery without angina pectoris
CPT/HCPCS: 90833; 99213

== ENCOUNTER → 2024-02-03 11:32 | Outpatient (BNVA) | payer MEDICARE, MEDICAID, SELFPAY | PROVIDERS: PCP Nurse Practitioner Primary Care; Visit Provider Psychiatry & Neurology Psychiatry | DX: I25.10 Atherosclerotic heart disease of native coronary artery without angina pectoris (principal); F43.10 Post-traumatic stress disorder, unspecified; F31.81 Bipolar II disorder | CPT/HCPCS: 99212 ==

== ENCOUNTER 2024-03-02 13:23 | Outpatient (REF) | payer MEDICARE, MEDICAID, SELFPAY | END 2024-03-02 13:24 | disposition home or self-care (01) | LOC: HO.LAB 13:23 | PROVIDERS: PCP Nurse Practitioner Primary Care; Visit Provider Psychiatry & Neurology Psychiatry | DX: F31.81 Bipolar II disorder (principal); F43.12 Post-traumatic stress disorder, chronic | CPT/HCPCS: 99212 ==

== ENCOUNTER 2024-03-02 13:23 | Outpatient (AMB) | payer MEDICARE, MEDICAID, SELFPAY ==
--- OUTSIDE RECORDS SUMMARY | 2024-03-02 13:24 | XMS_ITS | Continuity of Care Document ---
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 Discharge Disposition: A-D/C Home Attending Physician: Gato Jj MD Admitting Physician: Gato Jj MD Referring Physician: Not on Staff, Referring MD Allergies, Adverse Reactions, Alerts Substance Reaction Severity Status lidocaine Active sulfADIAZINE Active fentanyl Active Cipro ANAPHYLACTIC SHOCK Active Versed Active Dust Active Pollen Active Immunizations Not Given Vaccine Date Status Refusal Reason influenza virus vaccine, inactivated 09/04/19 Not Given Patient Refuses Medications Clonidine = 0.1 mg, By Mouth, 2 times a day, PRN Other, Maintenance, 04/26/17 9:29:34 Start Date: 04/26/17 Status: Ordered Gabapentin = 800 mg, By Mouth, Daily, 0 Refills, Maintenance, 09/03/19 19:03:48 EDT Start Date: 09/03/19 Status: Ordered KLONopin Tablet = 1 mg, By Mouth, 4 times a day, 0 Refills, Maintenance, 11/24/14 14:12:10 Start Date: 11/24/14 Status: Ordered Omeprazole = 20 mg, By Mouth, Daily, Maintenance, 04/26/17 9:29:10 Start Date: 04/26/17 Status: Ordered ondansetron 4 mg oral tablet, disintegrating 1 tablet = 4 mg, By Mouth, Every 8 hours, PRN as needed for nausea/vomiting, 0 Refills, Maintenance, 09/12/19 17:09:59 EDT, DIS Tablet Start Date: 09/12/19 Status: Ordered Synthroid 0.175 mg oral tablet 1 tablet = 175 mcg, By Mouth, Daily, # 30 tablet, 0 Refills, Maintenance, 04/26/17 14:51:15, Tablet Start Date: 04/26/17 Status: Ordered Problem List Condition Effective Dates Status Health Status Inform ant Bacterial urinary tract infection(Confirmed) Active Oral thrush(Confirmed) Active Vital Signs Most recent to oldest [Reference Range]: 1 2 3 Oxygen Saturation [94-100 %] 98 % (01/03/20 7:02 AM) 98 % (01/03/20 12:11 AM) Pulse Rate [55-90 bpm] 65 bpm (01/03/20 7:02 AM) 65 bpm (01/03/20 12:11 AM) Blood Pressure [90-138/55-84 mm Hg] 126/80mm Hg (01/03/20 12:11 AM) Systolic Blood Pressure [90-138 mm Hg] 122 mm Hg (01/03/20 7:02 AM) Respiratory Rate [16-30 br/min] 18 br/min (01/03/20 7:02 AM) 18 br/min (01/03/20 4:50 AM) 18 br/min (01/03/20 2:05 AM) Temperature [96.8-100.4 DegF] 98.1 DegF (01/03/20 7:02 AM) 98.3 DegF (01/03/20 12:11 AM) Mode of Delivery (Oxygen) Room air (01/03/20 7:02 AM) Room air (01/03/20 12:11 AM) Blood pressure sites Arm, right (01/03/20 7:02 AM) Arm, right (01/03/20 12:11 AM) Temperature Route Oral (01/03/20 7:02 AM) Oral (01/03/20 12:11 AM) Social History Social History Type Response Smoking Status Current every day sm oker; Type: Cigarettes; Previous treatment: Nicotine replacement; Interested in cessation: Yes; Tobacco use times per day: one pack a day; Number of years: 30; Cessation attempts: 5; entered on: 04/26/17 Sex
--- OUTSIDE RECORDS SUMMARY | 2024-03-02 13:24 | XMS_ITS | Continuity of Care Document ---
Author Organization [facility] ter Address [address] [place] [id number]- Care Team Providers Care Rfid Specialist Name Role Phone Chel Rodgers MD Primary Care Physician Encounter [facility] Date(s): 01/09/24 - 01/11/[address] [address] Discharge Disposition: A-D/C Home Attending Physician: Karthikeyan Landrum MD Admitting Physician: Karthikeyan Landrum MD Referring Physician: Not on Staff, Referring MD Allergies, Adverse Reactions, Alerts Substance Reaction Severity Status sulfADIAZINE Active fentanyl Active Cipro ANAPHYLACTIC SHOCK Active Versed Active Medications albuterol CFC free 90 mcg/inh inhalation aerosol 1, puffs, Inhalation, 4 times a day, PRN, # 6.7 Gm, Refills 0, Maintenance, 01/09/24 21:33:00 EST, Aerosol Start Date: 01/09/24 Status: Ordered amLODIPine 5 mg oral tablet 2.5 mg, By Mouth, Daily, # 30 tablet, Refills 0, Tot. Refills 0, Maintenance, 01/11/24 15:40:00 EST, Route to Pharmacy Electronically, [facility], Partial fill upon patient request if the prescription is for a schedule II opioid drug., 1... Start Date: 01/11/24 Status: Ordered amoxicillin-clavulanate 875 mg-125 mg oral tablet 1 tablet, By Mouth, Every 12 hours, for 3 days, # 6 tablet, 0 Refills, Acute 01/14/24 15:44:00 EST,01/11/24 15:44:00 EST, Tablet, [facility], Partial fill upon patient request if the prescription is for a schedule II opioid drug., 166,... Start Date: 01/11/24 Stop Date: 01/14/24 Status: Ordered aspirin 81 mg oral delayed release tablet 81 mg, By Mouth, Daily, # 30 tablet, Refills 0, Tot. Refills 0, Maintenance, 01/11/24 15:40:00 EST,Route to Pharmacy Electronically, [facility], Partial fill upon patient request if the prescription is for a schedule II opioid drug., 16... Start Date: 01/11/24 Status: Ordered Coreg 3.125 mg oral tablet 3.125 mg, Tablet, By Mouth, 01/11/24 9:00:00 EST Start Date: 01/11/24 Stop Date: 01/11/24 Status: Completed gabapentin 300 mg oral capsule 300 mg, 1, capsule, By Mouth, 2 times a day, PRN, As needed for back pain, Refills 0, Maintenance, Pain , Mild, 01/09/24 21:32:00 EST, Partial fill upon patient request if the prescription is for a schedule II opioid drug. Start Date: 01/09/24 Status: Ordered KLONopin Tablet = 1 mg, By Mouth, 3 times a day, 0 Refills, Maintenance, 11/24/14 14:12:10 EST Start Date: 11/24/14 Status: Ordered levothyroxine 137 mcg (0.137 mg) oral capsule 1 capsule = 137 mcg, By Mouth, Daily, # 30 capsule, 0 Refills, Maintenance, 01/09/24 21:32:00 EST, Capsule, Partial fill upon patient request if the prescription is for a schedule II opioid drug. Start Date: 01/09/24 Status: Ordered rosuvastatin 20 mg oral tablet = 40 mg, By Mouth, Daily, # 60 tablet, 0 Refills, Maintenance, 01/11/24 15:41:00 EST, Tablet, [facility], Partial fill upon patient request if the prescription is for a schedule II opioid drug., 166, cm, 01/09/24 21:28:00 EST, Height, 94... Start Date: 01/11/24 Status: Ordered ticagrelor 90 mg oral tablet 1 tablet = 90 mg, By Mouth, 2 times a day, # 60 tablet, 0 Refills, Maintenance, 01/11/24 15:41:00 EST, Tablet, [facility], Partial fill upon patient request if the prescription is for aschedule II opioid drug., 166, cm, 01/09/24 21:28:0... Start Date: 01/11/24 Status: Ordered Problem List Condition Confirmation Course Effective Dates Status Health St atus Informant Bacterial urinary tract infection Confirmed Active Oral thrush Confirmed Active Obese class I Confirmed Active Results Radiology Reports * Exam Date Time Procedure Performing Provider Status 01/09/24 10:49 PM Chest Portable Andry Saunders; Auth (Ve rified) Notes: (Chest Portable) Reason For Exam: Shortness of Breath RESULT: Chest Portable Chest Portable Reason: Shortness of Breath; Clinical Question(s): Pulmonary Edema COMPARISON: CXR 09/08/2019 FINDINGS: LINES AND TUBES: None. LUNGS AND PLEURA: Clear lungs. Normal pulmonary vascularity. No pleural effusion. No pneumothorax. HEART, MEDIASTINUM AND DORIS: Heart is normal in size. Normal mediastinal and hilar contour. BONES AND SOFT TISSUES: No acute abnormality. Calcific tendinitis of the right rotator cuff. Degenerative changes of the thoracic spine. Aortic calcifications. IMPRESSION: No acute abnormality. I have personally reviewed the images and I agree with this report. WSN: [id number] Ordering Physician: Chio Mcartuhr Dictated By: Jaden Lee MD Dictated Date/Time: 01/09/24 10:53 p Reviewed By: Jaleel Duncan MD Signed By: Jaleel Duncan MD Signed Date/Time: 01/09/24 10:58 pm Transcribed By: LEANNA Transcribed Date/Time: 01/09/24 10:51 pm Vital Signs Most recent to oldest [Reference Range]: 1 2 3 Height 166 cm (01/09/24 9:28 PM) Weight 97.8 kg (01/11/24 4:54 AM) 96.1 kg (01/10/24 4:00 AM) 94.8 kg (01/09/24 8:50 PM) Oxygen Saturation [94-100 %] 98 % (01/11/24 4:00 PM) 96 % (01/11/24 3:00 PM) 97 % (01/11/24 2:00 PM) Pulse Rate [55-90 bpm] 53 bpm *L* (01/11/24 4:00 PM) 57 bpm (01/11/24 12:00 PM) 55 bpm (01/11/24 8:36 AM) Body Mass Index [18.5-24.99 kg/m2] 34.4 kg/m2 *>HHI* (01/09/24 8:50 PM) Blood Pressure [90-138/55-84 mm Hg] 146/85mm Hg *H* (01/11/24 4:00 PM) 123/111mm Hg (01/11/24 3:00 PM) 131/53mm Hg (01/11/24 2:00 PM) Respiratory Rate [16-30 br/min] 10 br/min *L* (01/11/24 4:00 PM) 20 br/min (01/11/24 3:00 PM) 15 br/min *L* (01/11/24 2:00 PM) Temperature [96.8-100.4 DegF] 99.5 DegF (01/11/24 4:00 PM) 98.3 DegF (01/11/24 12:00 PM) 98.6 DegF (01/11/24 8:00 AM) Liters per Minute 1 L/min (01/11/24 4:00 AM) 1 L/min (01/11/24 2:00 AM) 2 L/min (01/11/24 12:00 AM) Mode of Delivery (Oxygen) Room air (01/11/24 4:00 PM) Room air (01/11/24 3:00 PM) Room air (01/11/24 2:00 PM) Blood pressure sites Arm, right (01/11/24 4:00 PM) Arm, right (01/11/24 3:00 PM) Arm, right (01/11/24 2:00 PM) Temperature Route Oral (01/11/24 4:00 PM) Oral (01/11/24 12:00 PM) Oral (01/11/24 8:00 AM) Dry Weight 94 kg (01/09/24 9:31 PM) 94.8 kg (01/09/24 8:50 PM) Weight Obtained Via Bed scale (01/11/24 4:54 AM) Bed scale (01/10/24 4:00 AM) Bed scale (01/09/24 9:28 PM) Social History Social History Type Response Smoking Status Current every day sm dustin; Type: Cigarettes; Previous treatment: Nicotine replacement; Interested in cessation: Yes; Tobacco use times per day: one pack a day; Number of years: 30; Cessation attempts: 5; entered on: 04/26/17 Sex Cardiac catheterization study * Event Display: Cardiac Glass Checker Report Authored Date: Cardiac Diagnostic + PCI Report Demographics Patient Name JAVON POWER Gender Female [employer] Room Number M510 Height 65.35 inches Date of 1960 Weight 211.87 pounds Age 63 year(s) BSA 2.04 m2 Accession Number [id number] BMI 34.87 kg/m2 Referring Physician Beti Virgen Date of Study 01/10/2024 Performing Physician Selma Leal MD Fellow Chris Carter MD Interventional Selma Leal MD Physician Procedure Procedure Type Diagnostic procedure:Coronary Angiography with [facility] PCI procedure:Coronary IVUS, Stent (Drug Eluting) Miscellaneous:[facility] Diagnostic Catheterization Status:Elective [facility] Interventional Catheterization Status:Elective Indications Indications: NSTEMI. Clinical History Clinical Evaluation Leading to Procedure - The patient's CAD presentation was assessed as: Non-STEMI. - The patient's anginal syndrome during the past two weeks was assessed as: Class IV according to the [place] Cardiovascular Society Classification System (CCS). ACC Risk Factors The patient risk factors include:obesity, chronic lung disease, last creatinine: 0.8 mg/dl, creatinine clearance: 112.03 ml/min and Current - Every day tobacco use. Additional Clinical History:This is a 63 years old female with a past medical history of hypothyroidism, anxiety/depression/PTSD, chronic back pain who was transferred from [facility] to [facility] for a cardiac cath in the setting of an NSTEMI. Procedure Data Procedure Date Date: 01/10/2024Start: 10:35End: 12:14 The procedure was explained in detail to the patient. Risks, complications and alternative treatments were reviewed. Written consent was obtained. Entry Locations - Retrograde Percutaneous access was performed through the Right Radial artery. A 6 Fr sheath was inserted. Hemostasis was successfully obtained using TR Band. Closure Comments: 13cc. Procedure Medications - Oxygen NC 2 l/min. - Lidocaine 2% S.C. Right Wrist 2 ml. - Morphine I.V. 1 mg. - Nitroglycerin I.A. 200 mcg. - Heparin I.V. 5000 units. - Nitroglycerin I.A. 200 mcg. - Heparin I.V. 5000 units. - Nitroglycerin S.L. 0.4 mg. - Nitroglycerin I.C. 200 mcg. - Ticagrelor P.O. 180 mg. - Nitroglycerin I.C. 200 mcg. - Hydralazine I.V. 10 mg. - Morphine I.V. 1 mg. - Nitroglycerin I.C. 200 mcg. - Nitroglycerin I.C. 200 mcg. - Nitro Paste (2%) Topical 2 . Sedation: My intra-service moderate sedation time was: from 10:47 to 12:08. Refer to procedural log for detailed chronological information. Contrast Material - Omnipaque 300 ml Diagnostic Catheters - AINFINITI 5F 100 cm JL 3.5was used for: Left coronary angiography. - AINFINITI 5F 100 cm JR 4.0was used for: Left heart catheterization. - AINFINITI 5F 100 cm JR 4.0was used for: Right coronary angiography. - ALAUNCHER 5F 100 cm EBU 3.75was used for: FFR .Unable to cannulate the vessel. - AVISTA BRITE TIP 6F 100 cm XB 3.5was used for: FFR .Unable to cannulate the vessel. - ALAUNCHER 5F 100 cm EBU 3was used for: FFR . Fluoroscopy Time: Diagnostic: 3:47 minutes. PCI: 22:46 minutes. Total: 26:33 minutes. Fluoroscopy Dose: Diagnostic: 266 mGy. PCI: 1051 mGy. Total: 1317 mGy. Dose Area Product:Diagnostic: 29951 mGy/cm2. PCI: 68437 mGy/cm2. Total: 84673 mGy/cm2. Procedure Narrative Timeout was performed prior to the procedure. Right radial arterial access was obtained using a 6 Congolese slender sheath. Selective right coronary angiography was performed using a 5 Congolese JR4 catheter. Left heart catheterization was performed using a 5 Congolese JR4 catheter. Selective left coronary angiography was performed using a 5 Congolese JL 3.5 catheter. After review of the coronary angiogram the decision was to proceed with PCI of the proximal to mid circumflex. The left main was engaged using a 5 Congolese EBU 3.0 guide catheter. The lesion was successfully crossed using a 0.04 run-through coronary wire. The lesion was predilated using a 2.5 x 15 compliant balloon at 12 valeria. Imaging using [place] IVUS catheter showed a fibrous and calcific plaque. The lesion was predilated using a 2.5 x 15 Upatoi cutting balloon. 3.0 x 34 mm [place] frontier drug-eluting stent was successfully deployed at 12 valeria. Imaging using [place] IVUS catheter was performed that showed good stent apposition but under expansion of the mid to distal segment. We postdilated being a 3.25 x 12 NC balloon at 22 valeria. There was BEBETO-3 flow post PCI with 0% residual stenosis and no complications. The patient's blood pressure was elevated during the case with a systolic pressure of 200 and above. We gave her 0.4 mg sublingual nitroglycerin and 10 mg of IV hydralazine. Hemostasis was achieved using a TR band. Angiographic Findings Cardiac Arteries and Lesion Findings LAD: Lesion in Mid LAD: 65% stenosis . LCx: Lesion in Prox CX: Mid subsection.95% stenosis . Pre procedure BEBETO II flow was noted. Good runoff was present.The lesion was tubular and lightly calcified.Culprit lesion. Pre PCI IVUS: The Plaque Composition is Calcium-mild. RCA: Lesion in R PDA: Proximal subsection.65% stenosis . Hemodynamics Condition: Rest O2 Consumption: Estimated: 277.44Heart Rate: 52 bpm Pressures (mmHg) +-----+ + !Site !Pressure ! +-----+ + !AO !179/81 (115)! +-----+ + !AO !153/74 (104)! +-----+ + !LV !161/5 ,19 ! +-----+ + !AO !169/74 (109)! +-----+ + !LV !167/12 ,17 ! +-----+ + Valve Gradients and Areas +------+----+----+----+-----+----+------+ !Valve !Peak!Mean!Area!Index!Flow!Source! +------+----+----+----+-----+----+------+ !Aortic!0 !0 ! ! ! ! ! +------+----+----+----+-----+----+------+ !Aortic!0 !0 ! ! ! ! ! +------+----+----+----+-----+----+------+ Shunts Oxygen Values O2 Consumption 277.44 Interventional Procedure Cardiac lesions LAD: Lesion in Mid LAD: 65% stenosis . Devices used - OmniWire 185 cm Straight Tip. Number of passes: 1. LCx: Lesion in Prox CX: Mid subsection.95% stenosis reduced to 0%. Pre procedure BEBETO II flow was noted. Post Procedure BEBETO III flow was present. Good runoff was present.The lesion was tubular and lightly calcified.The guidewire cross was successful.Culprit lesion. Pre PCI IVUS: The Plaque Composition is Calcium-mild. Post PCI IVUS Stent was well apposed. Stent expansion: Optimal expansion. Treatment results:Interventional treatment was successful. Devices used - Runthrough NS 0.014 in 180 cm Extra Floppy. Number of passes: 1. - SC Euphora 2.50 mm 15 mm Rapid Exchange. Diameter: 2.5 mm. Length: 15 mm. 3 inflation(s) to a max pressure of: 12 valerai. - [place] Band 2.9F/3.5F 150 cm .014 in. Number of passes: 2. - Upatoi 2.50 mm 15 mm MR. Diameter: 2.5 mm. Length: 15 mm. 3 inflation(s) to a max pressure of: 12 valeria. - [place] 3.00 mm 34 mm RX. Diameter: 3 mm. Length: 34 mm. 1 inflation(s) to a max pressure of: 12 valeria. - NC Euphora 3.25 mm 12 mm. Diameter: 3.25 mm. Length: 12 mm. 6 inflation(s) to a max pressure of: 22 valeria. Conclusions Diagnostic Summary Coronary angiogram showed: 1. RIght dominant circulation. 2. Left main is short with no significant disease. 3. LAD is a large size vessel and wraps around the apex. There is 60 to 70% mid LAD stenosis. LAD gives small diagonal branches that are diseased at the ostium. 4. LCx give a moderate OM1 and a large OM2. There is a 95% proximal circumflex stenosis. There is a 70% and 95% sequential proximal circumflex stenosis and a 50% OM 2 stenosis. 5. RCA is a large size vessel. There is a 30% proximal RCA stenosis. There is a 60 to 70% ostial stenosis of a moderate size RPDA. 6. LVEDP is 15-20 mmHg. Conclusion: Critical proximal LCx disease. Moderate LAD and RPDA disease. Elevated left sided filling pressures. Diagnostic Recommendations Proceed with PCI of the proximal LCx. Interventional Summary Successful IVUS guided PCI of the proximal circumflex into OM 2 using a 3.0 x 34 mm [place] frontier drug-eluting stent. This was postdilated using a 3.5 NC balloon at 22 valeria. There was BEBETO-3 flow post PCI with 0% residual stenosis and no complications. Interventional Recommendations Aspirin for lifetime. P2 Y12 inhibitor for at least 12 months. Echocardiogram. Cardiac rehab referral. Start oral antihypertensive therapy. Target LDL < 55 mg/dl. May need ezetimibe +/- PCSK9 inhibitors as an outpatient. Consider stress testing or symptom driven management of residual moderate LAD and RPDA disease. Follow up in [facility] office. Signatures * Event Display: Cardiac Glass Checker Report Authored Date: Note * Mikael SHAIKH, Linda Vanessa: PERFORM, SIGN, VERIFY Event Display: Cardiac Rehab Note Authored Date: Patient: JAKY ALEJANDRO Age: 63 years Sex: Female : 1960 Associated Diagnoses: None Author: Linda Youssef RN Diagnosis Cardiac Rehab Diagnosis: NSTEMI LUIS to LCx into OM2. Pre-exercise Vitals Vital Signs: 50 HR, 129/54 BP Supine, 99% room air SaO2. Vital Signs Comment: Reviewed in [facility]. Pre-exercise Physical Examination Neurologic: alert & oriented. Compliance problems: Compliance problems: diet, exercise. . Patient Education Education: Patient alone, Written material included, Post procedure guidelines, Stent card reviewed, radial site care/ management . Education topic Teachback comprehension 50% Topic: Pathophysiology, Lipid management, Medication education, Smoking cessation, Role of exercise, Stress management, Home activity guidelines/limits, Infarct recovery guidelines. Recommendation and Plan Ambulate: 3-5 times/day. Outpatient follow up recommended: [facility], in 2 weeks, Pt declined outpatient phase2 cardiac rehab at this time, pt does not have car/ transportation. She just moved, getting things in order. Pt provided with our contact information, she states she if familiar with PT-1 process, will call us to set up an apointment if able to secure rides.. Cardiac Rehab: Will sign off at this time, Please page [phone] with questions or if pts condition changes. * Cinthya Owen MD: PERFORM Event Display: Discharge/Transfer Note Hospital Authored Date: [id number] Patient: ??JAKY ALEJANDRO ? Age:??63 Years?Sex:??Female?:??1960?? Patient Information Discharge Location: Primary Care Physician: Chel Rodgers MD Admit Date/Time: 01/09/24 20:37 Discharge Disposition Discharge Disposition: Home: No Services Discharge Diagnosis NSTEMI (non-ST elevated myocardial infarction) (I21.4) CAD s/p LUIS to LCx Sinus Bradycardia Essential Hypertension Pneumonia Hypothyroidism Anxiety/PTSD Chronic back pain Asthma _ Discharge Medications Albuterol (albuterol CFC free 90 mcg/inh inhalation aerosol)?1?puff(s)?Inhalation?4 times a day?as needed?as needed for wheezing Amlodipine (amLODIPine 5 mg oral tablet)?2.5?Milligram?By Mouth?Daily Amoxicillin-Clavulanate (amoxicillin-clavulanate 875 mg-125 mg oral tablet)?1?tab(s)?By Mouth?Every 12 hours?for 3?Days Aspirin (aspirin 81 mg oral delayed release tablet)?81?Milligram?By Mouth?Daily Clonazepam (KLONopin Tablet)?1?Milligram?By Mouth?3 times a day Gabapentin (gabapentin 300 mg oral capsule)?300?Milligram?1?capsule?By Mouth?2 times a day?as needed?As needed for back pain?Pain , Mild Levothyroxine (levothyroxine 137 mcg (0.137 mg) oral capsule)?1?capsule?137?Microgram?By Mouth?Daily Rosuvastatin (rosuvastatin 20 mg oral tablet)?40?Milligram?By Mouth?Daily Ticagrelor (ticagrelor 90 mg oral tablet)?1?tab(s)?90?Milligram?By Mouth?2 times a day ? Quality Measures Chest Pain, AMI Quality Measures:?Aspirin Prescribed at Discharge:??Aspirin Prescribed ?Statin Prescribed at Discharge:??Statin Prescribed ? Durable Medical Equipment Ambulatory devices needed: None (01/11/24) ? Medications Started -??aspirin 81mg daily -??ticagrelor??90mg??twice daily - amlodipine??2.5mg daily -??rosuvastatin??40mg??daily Medications Discontinued None Doses Changed None PCP Follow-Up/Heads-Up Pt was admitted with chest pain/SOB iso NSTEMI s/p LUIS to LCx. -- Please f/u within 1 week of discharge to follow fever/PNA, HTN control -- Will need cardiology f/u in 2-4 weeks s/p discharge, appt pending Hospital Course Jaky is a 63 year old with hypothyroidism, anxiety/depression/PTSD, chronic back pain who presented to [facility] for 1mo of progressive fatigue, chest pain, and worsening progressive SOB. 2 days prior to presentation, she went to urgent care??for shortness of breath where she was diagnosed with PNA, prescribed Augmentin, albuterol, and prednisone, and was sent home. The night before presentation to [facility], her shortness of breath worsened and she had new onset nausea, vomiting x1, and substernal chest pain not relieved with antacids. She was transferred to [facility] by EMS. ?? On presentation to [facility], she was hemodynamically stable, although slightly hypertensive at 178/64 and bradycardic at 58. Lab work showed an unremarkable CBC, unremarkable CMP. Initial troponin was 59.9 which later up trended to 293. EKG showed normal sinus rhythm and nonspecific ST segment changes. CXR had no acute abnormalities. Due to uptrending troponins and concern for NSTEMI, patient was transferred to [facility] for potential cardiac cath. She had already received an aspirin load by EMS on the way to [facility], so she was started on a heparin drip , given sublingual nitroglycerin X3, morphine, Zofran, and a PPI. ?? Upon arrival to [facility], patient was hemodynamically stable, although still hypertensive with systolicsin the 150s and bradycardic in the 50s. She was still having 7/10 chest pain. EKG was obtained uponarrival, showing sinus bradycardia with no ST segment changes. She was started on a nitroglycerin drip titrated up to 200mcg/hr with no improvement in chest pain. Pain later improved with 0.5 mg Dilaudid. On 01/09/23, cardiac cath revealed significant stenosis in the LCx requiring LUIS. She was monitored overnight, loaded with ticagrelor, started on carvedilol for BP control, and weaned off O2 requirements. Unfortunately the next morning she had some diarrhea and likely 2/2 carvedilol vs. gastroenteritis considering one recorded fever of 101.1F overnight. Although her WBC count was wnl and she had no evidence of PNA on CXR, she was advised to complete 3 more days of her previously prescribed course of Augmentin for PNA at home considering no other obvious sources of infection. Of note, she remained bradycardic in the 40s-50s throughout admission, but was asymptomatic even on ambulation, sothought to be her baseline. She was hemodynamically stable and ready for discharge home without services on 01/11/24.?? Objective Assessment and Plan ?? NSTEMI s/p LUIS to LCx Sinus Bradycardia, stable Essential Hypertension, improved Pt presented with chest pain (left-sided, pressure-like, although not improved with nitro drip, only responds to dilaudid) and SOB with associated nausea/vomiting. EKG normal sinus, but trops uptrending concerning for NSTEMI. CAD risk factors: obesity, tobacco use disorder (34 pack years). Total cho lesterol 272, LDL 209, HDL 46, triglycerides 83. Denies any alcohol or drug use, A1c 5.9, and no premature CAD in family, although mother with CABG at age 70. CXR negative. Cardiac cath revealed right dominant circulation with 60-70% stenosis of mid LAD and small diagonal branches that are diseasedat the ostium; 95% proximal LCx, 70% and 95% sequential proximal circumflex stenosis and a 50% OM 2stenosis; 30% proximal RCA stenosis; 60 to 70% ostial stenosis of a moderate size RPDA; LVEDP is 15-20 mmHg. Echo 01/10/24: LV normal in size, EF 55-65%, no definite wall abnormalities. Sinus bradycardia down to 40s prior to cath with no evidence of heart block possibly 2/2 increased vagal tone. ?? Recommendations: -- Continue Aspirin 81 mg daily --??Continue ticagrelor 90mg BID -- Continue amlodipine 2.5mg daily (will likely need to??be uptitrated outpatient based on HTN control) ??? Continue Rosuvastatin 40 mg daily -- F/u with [facility] within 2-4 weeks of discharge, appt requested -- F/u with PCP within 1 week of discharge ?? Fever to 101.1F, improved Pneumonia Patient febrile??in??early AM on 01/10 with associated nausea, bloating, and diarrhea.??Fever likely 2/2 PNA (diagnosed 2 days prior to admission) although WBCs wnl and no evidence of PNA on CXR??vs. viral gastro, although diarrhea more likely iso??recent carvedilol/Augmentin. Fever resolved prior??to discharge and pt had no other localizing symptoms. ?? Recommendations: --??Continue 3 more days of previously prescribed Augmentin to complete 5 day??course of abx --??F/u with PCP within 1 week of discharge ?? Chronic medical conditions ??? Hypothyroidism: TSH elevated to 8 but T4 wnl. Continue home levothyroxine ??? Anxiety/PTSD: Continue home clonazepam ??? Chronic back pain: Continue home gabapentin PRN ??? Asthma: Continue home albuterol as needed ?? . Physical Exam General: No acute distress, sitting in bed comfortably,??well-nourished HEENT:??Moist mucus membranes, EOMI, no scleral icterus, neck??supple Respiratory:??Bilateral expiratory wheezes (spontaneously resolved on repeat exam), no increased work of breathing, good aeration to lung bases Cardiovascular: slow??rate (50s), regular rhythm, no murmurs, peripheral pulses intact Abdomen:??soft, non-tender, non-distended Musculoskeletal: No LE edema, moving all extremities normally Neurologic:??Alert & Oriented, CN grossly??II-XII intact Skin:??Warm and dry, No rashes or lesions Psychiatric:??Anxious??mood/affect, normal cognition, normal judgement Pending Results Add On Lab Order ordered on 01/10/2024 CBC ordered on 01/09/2024 CBC ordered on 01/09/2024 PTT ordered on 01/10/2024 Patient Education Titles WebMD Ignite Patient Education - Discharge Instructions for Cardiac Catheterization?? WebMD Ignite Patient Education - Follow-up Appointment After Percutaneous Coronary Intervention (PCI)?? WebMD Ignite Patient Education - Lifestyle Management After Percutaneous Coronary Intervention (PCI)?? WebMD Ignite Patient Education - Exercising Safely After Percutaneous Coronary Intervention??(PCI)?? WebMD Ignite Patient Education - Cardiac Rehabilitation?? WebMD Ignite Patient Education - Taking Aspirin for Atherosclerosis?? WebMD Ignite Patient Education - Taking Blood Thinners After Percutaneous Coronary Intervention (PCI)?? WebMD Ignite Patient Education - Discharge Instructions for Coronary Angioplasty and Stenting?? WebMD Ignite Patient Education - Coronary Stents?? WebMD Ignite Patient Education - Aspirin Oral Tablet?? WebMD Ignite Patient Education - Rosuvastatin Oral Tablet?? WebMD Ignite Patient Education - Ticagrelor Oral Tablet?? WebMD Ignite Patient Education - Amoxicillin/Clavulanate Oral Tablet?? WebMD Ignite Patient Education - Taking Amlodipine?? WebMD Ignite Patient Education - Cardiac Rehabilitation: Following an Exercise Program?? WebMD Ignite Patient Education - Depression?? Follow-Up Appointments Added Follow Up ?Time Frame ?Comments Ray?2 to 5 weeks Chel Rodgers MD?1 week: call to discuss follow up visit Card[facility] Rehab [facility]?If you are interested in setting up an appointment to begin cardiac rehab, please call Patient Instructions DIAGNOSIS/TREATMENT ?? Myocardial Infarction - You presented with fatigue, chest pain, and worsening shortness of breath concerning for HI. You underwent cardiac catheterization and were found to have a complete blockage of one of the vessels of your heart requiring a stent. You were started on several new cardiac medications to keep the stent open, to reduce cholesterol levels, and to keep your hypertension under control. You will need close follow up with a mentally retarded teacher and your primary care doctor after discharge. ?? MEDICATIONS ?? Start taking: -??aspirin 81mg daily -??ticagrelor??90mg??twice daily - amlodipine??2.5mg daily -??rosuvastatin??40mg??daily ?? Continue taking all other previously prescribed home medications, including 3 more days of??amoxicillin-clavulanic acid 875-125mg (to complete your course of antibiotics for pneumonia) ?? FOLLOW UP - Please follow up with [facility]??Cardiology. An appointment has been requested for you, and shouldbe scheduled within 2-4 weeks of discharge - Please follow up with your primary care doctor, Dr. Rodgers, within 1 week of discharge. You will need to call to make an appointment ?? Please seek urgent care if you experience any of the following: worsening chest pain, shortness of breath, confusion, lightheadedness, persistent nausea/vomiting,??worsening fever,??or any other concerning symptoms. Thank you for allowing us to take part in your care! Results Discharge Labs BLOOD COUNT & DIFF WBC 7.9 k/mm3 ()?? 01/11/2024 00:33 RBC 4.76 m/mm3 ()?? 01/11/2024 00:33 Hgb 13.7 Gm/dL ()?? 01/11/2024 00:33 Hct 42.4 % ()?? 01/11/2024 00:33 MCV 89.1 femtoliters ()?? 01/11/2024 00:33 MCH 28.8 pg ()?? 01/11/2024 00:33 MCHC 32.3 g/dL (Low)?? 01/11/2024 00:33 Platelet Count 194 k/mm3 ()?? 01/11/2024 00:33 RDW-SD 44.7 femtoliters ()?? 01/11/2024 00:33 MPV 10.1 femtoliters ()?? 01/11/2024 00:33 Nucleated RBC (Automated) 0.0 #/100 WBC'S ()?? 01/11/2024 00:33 Abs. NRBC 0.0 k/mm3 ()?? 01/11/2024 00:33 ?? CARDIAC Nt-Probnp 270 pg/mL (High)?? 01/09/2024 20:56 High Sensitivity Troponin (HSTnT) 185 ng/L (Critical)?? 01/10/2024 03:57 ?? CHEM GENERAL Sodium 138 mmol/L ()?? 01/11/2024 00:33 Potassium 4.4 mmol/L ()?? 01/11/2024 00:33 Chloride 103 mmol/L ()?? 01/11/2024 00:33 Bicarbonate Level 22 mmol/L ()?? 01/11/2024 00:33 Anion Gap 13 ()?? 01/11/2024 00:33 Glucose Level 88 mg/dL ()?? 01/11/2024 00:33 Glucose, POC 93 mg/dL ()?? 01/10/2024 18:33 Hemoglobin A1C (Monitoring) 5.9 % (High)?? 01/09/2024 20:56 BUN 16 mg/dL ()?? 01/11/2024 00:33 Creatinine-Blood 0.9 mg/dL ()?? 01/11/2024 00:33 Estimated GFR Creatinine 78 ML/MIN/1.73 M2 ()?? 01/11/2024 00:33 Calcium 8.9 mg/dL ()?? 01/11/2024 00:33 Protein, Total 6.3 Gm/dL ()?? 01/09/2024 20:56 Albumin 4.2 Gm/dL ()?? 01/09/2024 20:56 AG Ratio 2.0 ()?? 01/09/2024 20:56 Alkaline Phosphatase 76 units/L ()?? 01/09/2024 20:56 AST (SGOT) 17 units/L ()?? 01/09/2024 20:56 ALT (SGPT) 9 units/L ()?? 01/09/2024 20:56 Bilirubin, Total 0.3 mg/dL ()?? 01/09/2024 20:56 ? COAG APTT 39.2 seconds (High)?? 01/10/2024 03:56 ? ENDOCRINE/TUMOR MARKER TSH 8.48 uIU/mL (High)?? 01/10/2024 03:57 Free T4 0.86 ng/dL ()?? 01/10/2024 03:57 ?? LIPID STUDIES Cholesterol 272 mg/dL (High)?? 01/09/2024 20:56 Triglycerides 83 mg/dL ()?? 01/09/2024 20:56 HDL Cholesterol 46 mg/dL ()?? 01/09/2024 20:56 LDL Cholesterol 209 mg/dL (High)?? 01/09/2024 20:56 Non HDL Cholesterol 226 mg/dL (High)?? 01/09/2024 20:56 ? URINE OTHER Est Creatinine Clearance 59.91 mL/min ()?? 01/11/2024 01:58 ? 35??minutes spent on discharge ?? Patient seen and discussed with attending, Dr. Palm. ?? Cinthya Owen MD Internal Medicine-Pediatrics PGY1 Pager #[phone] * Pham Roberts RN: PERFORM Event Display: Discharge/Transfer Note Hospital Authored Date: [id number] Nursing Discharge Note Entered On: 01/11/2024 18:05 EST Performed On: 01/11/2024 18:04 EST by Pham Roberts RN Nursing Discharge Note 2 Discharge Time : 01/11/2024 18:00 EST Discharge Level of Care at Discharge : Home/Longterm/Foster Care Patient Left Unit Via : Wheelchair Patient Accompanied Off Unit with : Responsible adult DC Instructions Provided & Signed by Pt : Yes Patient Understands D/C Instructions : Yes Patient Instructions Discharge Signed : Yes Discharge Comments : pt left unit at 1800 via wheelchar. pt understood and signed dc instructions and left with all belongings and new rx medications Did Pt have Specialty Bed or Wound Vac : Yes Pham Roberts RN - 01/11/2024 18:04 EST * Pham Roberts RN: PERFORM Event Display: Patient Education/Instruction Authored Date: [id number] Inpatient Adult Discharge Instructions. [address] [address] Name: JAKY ALEJANDRO : 1960?? Visit: 01/09/2024 20:37?? Current Date: 01/11/2024 16:22 ?? Account: [id number]?? Inpatient Adult Discharge Instructions We would like to thank you for allowing us to assist you with your healthcare needs. The following includes patient education materials and information regarding your injury/illness. Our entire staffstrives to provide an excellent experience for our patients and their families. PLEASE ENSURE YOU FOLLOW-UP PER THE INSTRUCTIONS BELOW! ?? YOUR OPINION IS IMPORTANT TO US! Please complete the survey you may receive by mail or email. Your feedback will be used to make improvements to the healthcare experiences of our patients and their families. Surveys are administered by [employer] ?? If further treatment with your primary care physician or another doctor is recommended, it is important for you to keep the appointment. Call your primary care physician or return to the Emergency Department immediately if your condition worsens, fails to improve, or new symptoms develop. If you need to find a doctor, you can call [facility] for a referral at [phone] or toll free at [phone]) or log in to [email or web address].. ?? [facility], in keeping with [facility] guidance, no longer requires face masks for staff, patientsor visitors in most situations. Similiar to time spent indoors at other locations, there is the chance that you were exposed to repiratory viruses during your time with us (such as flu or COVID-19). If you develop symptoms concerning for a viral respiratory infection, please seek testing (and treatment if indicated) from your medical provider or home test kit. ?? You can view and manage your care through the patient portal or by using a health care grover of your choosing. [employer] is a website that allows you to securely view your medical information including your hospital discharge summary, office visit summaries, medications and follow-up visits. You can also request appointments, renew medications, and request access to your medical information using a health care grover of your choosing, or just ask a question. You can enroll at [email or web address] or register during your next office visit. You have been discharged from [facility], Patient Care Unit: M5??. If you have any questions regarding these instructions, including results of studies pending, afteryou leave, please call us and we will be happy to assist you 03/06. [facility] Your Care Team Attending Physician Karthikeyan Landrum MD?? Consulting Providers Karthikeyan Landrum MD?? Discharging Providers Cinthya Owen MD Your Diagnosis NSTEMI (non-ST elevated myocardial infarction) Tests Performed Below is a partial list of the tests performed during your hospitalization. You may have had other tests and procedures not included in this list. Please discuss all test results with your provider. Basic Metabolic Panel CBC Comprehensive Metabolic Panel FREE T4 GLUCOSE POC Hemoglobin A1C (Monitoring) High??Sensitivity??Troponin T Lipid Panel PROBNP Troponin T, High Sensitivity TSH CXR Portable Add On Lab Order?? CBC?? PTT?? Primary Care Provider Chel Rodgers MD? Advance Directive Health Care Proxy on File No Patient refuses to discuss Discharge Vitals Temperature: 98.3 DegF Height: 166 cm Pulse Rate: 57 bpm Weight: 97.8 kg Respiratory Rate:??10 br/min??Low Body Mass Index:??34.4 kg/m2??Critical Systolic Blood Pressure:??146 mm Hg??High Body surface area: 2.09 Diastolic Blood Pressure:??85 mm Hg??High ?? Oxygen Saturation: 98 % ?? Studies Pending All studies ordered during this hospital stay have been completed unless listed below. Please discuss all pending results with your provider listed above in these instructions. ?? Add On Lab Order?? CBC?? PTT?? What to do next Instructions From Your Doctor DIAGNOSIS/TREATMENT ?? Myocardial Infarction - You presented with fatigue, chest pain, and worsening shortness of breath concerning for HI. You underwent cardiac catheterization and were found to have a complete blockage of one of the vessels of your heart requiring a stent. You were started on several new cardiac medications to keep the stent open, to reduce cholesterol levels, and to keep your hypertension under control. You will need close follow up with a mentally retarded teacher and your primary care doctor after discharge. ?? MEDICATIONS ?? Start taking: -??aspirin 81mg daily -??ticagrelor??90mg??twice daily - amlodipine??2.5mg daily -??rosuvastatin??40mg??daily ?? Continue taking all other previously prescribed home medications, including 3 more days of??amoxicillin-clavulanic acid 875-125mg (to complete your course of antibiotics for pneumonia) ?? FOLLOW UP - Please follow up with [facility]??Cardiology. An appointment has been requested for you, and shouldbe scheduled within 2-4 weeks of discharge - Please follow up with your primary care doctor, Dr. Rodgers, within 1 week of discharge. You will need to call to make an appointment ?? Please seek urgent care if you experience any of the following: worsening chest pain, shortness of breath, confusion, lightheadedness, persistent nausea/vomiting,??worsening fever,??or any other concerning symptoms. Thank you for allowing us to take part in your care! ?? Orders? 01/11/24 15:51:00 EST?? You Need to Schedule the Following Appointments Follow Up with??Ray When:??Within 2 to 5 weeks Where: [address] [place], [place] Follow Up with??Chel Rodgers MD When:??Within 1 week: call to discuss follow up visit Where: [address] [place] [address]- [facility] (1) Follow Up with??Card[facility] Why: If you are interested in setting up an appointment to begin cardiac rehab, please call Where: [address] [address]- [phone] Discharge Medications JAKY ALEJANDRO :1960 Visit Date:01/09/2024 Medications: Please continue your medications until treatment is completed or stopped by your provider. Medications not listed below should be discontinued. Discuss any questions related to medications with your provider. What How Much When Instructions Next Dose New Amlodipine (amLODIPine 5 mg oral tablet) 2.5 Milligram Oral Daily Pickup at [place] [address] 01/11 New Amoxicillin-Clavulanate (amoxicillin-clavulanate 875 mg-125 mg oral tablet) 1 tab(s) Oral Every 12 hours Duration: 3 Days Pickup at [place] [address] 01/10 at 9pm New Aspirin (aspirin 81 mg oral delayed release tablet) 81 Milligram Oral Daily Pickup at [place] [address] 01/11 at 9am New Rosuvastatin (rosuvastatin 20 mg oral tablet) 40 Milligram Oral Daily Pickup at [place] [address] 01/10 at 9pm New Ticagrelor (ticagrelor 90 mg oral tablet) 1 tab(s) Oral Twice a day Pickup at [place] [address] 01/10 at 9pm Changed Gabapentin (gabapentin 300 mg oral capsule) 1 capsule Oral Twice a day as needed for Pain , Mild As needed for back pain ?? as needed Changed Levothyroxine (levothyroxine 137 mcg (0.137 mg) oral capsule) 1 capsule Oral Daily 01/11 at 8am Unchanged Albuterol (albuterol CFC free 90 mcg/ inh inhalation aerosol) 1 puff(s) Inhalation 4 times a day as needed for as needed for wheezing as needed Unchanged Clonazepam (KLONopin Tablet) 1 Milligram Oral 3 times a day 01/10 at 9pm Pharmacy Information [facility] 3: [address] [place], [place] [id number] [phone] ?? What How Much When Comments Stop Taking Clonidine 0.1 Milligram Oral Twice a day as needed for Other Stop Taking Omeprazole 20 Milligram Oral Daily Stop Taking Ondansetron (ondansetron 4 mg oral tablet, disintegrating) 1 tab(s) Oral Every 8 hours as needed for as needed for nausea/vomiting Prescription Given During Visit Amlodipine (amLODIPine 5 mg oral tablet) - 2.5 mg, By Mouth, Daily, # 30 tablet, 0 Refills, [place] [address] [phone]?? Amoxicillin-Clavulanate (amoxicillin-clavulanate 875 mg-125 mg oral tablet) - 1 tablet, By Mouth, Every 12 hours, # 6 tablet, 0 Refills, [place] [address] [phone]?? Aspirin (aspirin 81 mg oral delayed release tablet) - 81 mg, By Mouth, Daily, # 30 tablet, 0 Refills, [place] [address] [phone]?? Rosuvastatin (rosuvastatin 20 mg oral tablet) - 40 mg, By Mouth, Daily, # 60 tablet, 0 Refills, [place] [address] [phone]?? Ticagrelor (ticagrelor 90 mg oral tablet) - 1 tablet = 90 mg, By Mouth, 2 times a day, # 60 tablet,0 Refills, [place] [address] [phone]?? Laboratory Results Below is a partial list of the most recent Laboratory test results done prior to this discharge. You may have had other tests and procedures not included in this list. Please discuss all test resultswith your provider. Est Creatinine Clearance - 59.91 mL/min (01/11/2024) Basic Metabolic Panel (01/11/2024) ???Sodium - 138 mmol/L???Potassium - 4.4 mmol/L???Chloride - 103 mmol/L???Bicarbonate Level - 22 mmol/L???Anion Gap - 13???Glucose Level - 88 mg/dL???BUN - 16 mg/dL???Creatinine-Blood - 0.9 mg/dL???Estimated GFR Creatinine - 78 ML/MIN/1.73 M2???Calcium - 8.9 mg/dL CBC (01/11/2024) ???WBC - 7.9 k/mm3???RBC - 4.76 m/mm3???Hgb - 13.7 Gm/dL???Hct - 42.4 %???MCV - 89.1 femtoliters???MCH - 28.8 pg???MCHC - 32.3 g/dL???Platelet Count - 194 k/mm3???RDW-SD - 44.7 femtoliters???MPV - 10.1 femtoliters???Nucleated RBC (Automated) - 0.0 #/100 WBC'S???Abs. NRBC - 0.0 k/mm3 Comprehensive Metabolic Panel (01/09/2024) ???Sodium - 142 mmol/L???Potassium - 4.4 mmol/L???Chloride - 105 mmol/L???Bicarbonate Level - 22 mmol/L???Anion Gap - 15???Glucose Level - 141 mg/dL???BUN - 15 mg/dL???Creatinine-Blood - 0.8 mg/dL???Estimated GFR Creatinine - 84 ML/MIN/1.73 M2???Calcium - 9.3 mg/dL???Protein, Total - 6.3 Gm/dL???Albumin - 4.2 Gm/dL???AG Ratio - 2.0???Alkaline Phosphatase - 76 units/L???AST (SGOT) - 17 units/L???ALT (SGPT) - 9 units/L???Bilirubin, Total - 0.3 mg/dL FREE T4 (01/10/2024) ???Free T4 - 0.86 ng/dL GLUCOSE POC (01/10/2024) ???Glucose, POC - 93 mg/dL Hemoglobin A1C (Monitoring) (01/09/2024) ???Hemoglobin A1C (Monitoring) - 5.9 % High??Sensitivity??Troponin T (01/10/2024) ???High Sensitivity Troponin (HSTnT) - 185 ng/L Lipid Panel (01/09/2024) ???Cholesterol - 272 mg/dL???Triglycerides - 83 mg/dL???HDL Cholesterol - 46 mg/dL???LDL Cholesterol - 209 mg/dL???Non HDL Cholesterol - 226 mg/dL PROBNP (01/09/2024) ???Nt-Probnp - 270 pg/mL Troponin T, High Sensitivity (01/09/2024) ???High Sensitivity Troponin (HSTnT) - 174 ng/L TSH (01/10/2024) ???TSH - 8.48 uIU/mL Allergies (NKA means No Known Allergies) Cipro??(ANAPHYLACTIC SHOCK) Versed fentanyl sulfADIAZINE Problems Active Problems??(3) Bacterial urinary tract infection?? Obese class I?? Oral thrush?? Education Materials Below is the list of Educational Leaflet Providered with your Discharge Instructions. WebMD Ignite Patient Education - Discharge Instructions for Cardiac Catheterization?? WebMD Ignite Patient Education - Follow-up Appointment After Percutaneous Coronary Intervention (PCI)?? WebMD Ignite Patient Education - Lifestyle Management After Percutaneous Coronary Intervention (PCI)?? WebMD Ignite Patient Education - Exercising Safely After Percutaneous Coronary Intervention??(PCI)?? WebMD Ignite Patient Education - Cardiac Rehabilitation?? WebMD Ignite Patient Education - Taking Aspirin for Atherosclerosis?? WebMD Ignite Patient Education - Taking Blood Thinners After Percutaneous Coronary Intervention (PCI)?? WebMD Ignite Patient Education - Discharge Instructions for Coronary Angioplasty and Stenting?? WebMD Ignite Patient Education - Coronary Stents?? WebMD Ignite Patient Education - Aspirin Oral Tablet?? WebMD Ignite Patient Education - Rosuvastatin Oral Tablet?? WebMD Ignite Patient Education - Ticagrelor Oral Tablet?? WebMD Ignite Patient Education - Amoxicillin/Clavulanate Oral Tablet?? WebMD Ignite Patient Education - Taking Amlodipine?? WebMD Ignite Patient Education - Cardiac Rehabilitation: Following an Exercise Program?? WebMD Ignite Patient Education - Depression?? Valuables and Belongings I fully understand and agree that [facility] accepts no responsibility for all my personal property including clothing, toilet articles, radios, jewelry, dentures, hearing aids, rings, money, or any other property that is in my possession or is brought to me after admission. I understand certain valuables may be placed in a hospital safe for a short period of time. I understand that the hospital is not liable for loss or damage due to accident, fire, or other natural occurrence while said property is in the safe. I accept full responsibility for any personal property that I keep with me, and will not hold the hospital responsible in case of loss or disappearance. I acknowledge that i have been encouraged to send valuables and belongings home. ?? Review of Valuable and Belonging List: With patient Date for Pt to Sign Valuables/Belongings: 01/10/24 00:08:00 ?? Other Discharge Information ? Pulmonary Rehab Status?? Pulmonary Rehab Discharge Status?? Respiratory Rate:??10 br/min??Low ? Cardiac Rehab Assessment?? Cardiac Rehab Inpatient Assessment?? Comments-Education: HI recovery, Post PCI education, radial site care/ management Comments-Smoking Cessation: discussed importance of cessation, options for NRT Comments-Exercise Activity: home walking, increase as tolerated Comments-Nutrition: mediterranean diet Comments-Stress Management: discussed impact of stress on heart, ways to alleviate stress Comments-Lipids: meds/diet/exercise Comments-Other plan of care: Refer to phase 2 at [facility] Cardiac Re-Hab Comments: pt declined phase 2, does not have transportation, is familiar with PT-1 process for getting transportation, provided with our contact information to set up appt if she is able to get transportation Patient attending Phase II: No Common Emergency Awareness Tips IS IT A STROKE? Act FAST and Check for these signs: FACE Does the face look uneven? ARM Does one arm drift down? SPEECH Does their speech sound strange? TIME Call at any sign of stroke ?? Heart Attack Signs Chest discomfort: Most heart attacks involve discomfort in the center of the chest and lasts more than a few minutes, or goes away and comes back. It can feel like uncomfortable pressure, squeezing, fullness or pain. Discomfort in upper body: Symptoms can include pain or discomfort in one or both arms, back, neck, jaw or stomach. Shortness of breath: With or without discomfort. Other signs: Breaking out in a cold sweat, nausea, or lightheaded. Remember, MINUTES DO MATTER. If you experience any of these heart attack warning signs, call to get immediate medical attention! ?? Smoking can increase your chances of developing chronic health problems and can cause harmful effects to other family members in your house. If you smoke, you are strongly encouraged to quit. Please call [facility] Link at [phone] or [phone] ([phone]) or log in to [email or web address] for referrals to smoking cessation programs. ?? 909 Suicide & Crisis Lifeline is available 03/06 if you or someone you know needs to find a reason to keep living. By calling 072 you'll be connected to a skilled, trained counselor at a crisis center in your area. INPATIENT DISCHARGE INSTRUCTIONS SIGNATURE PAGE JAKY ALEJANDRO Location:[facility] Registration Date and Time:01/09/2024 20:37 EST Primary Care Physician: Ana Maria CALDWELL , Chel, Attending Physician: Diallo CALDWELL, Karthikeyan Brothers, I JAKY ALEJANDRO, have received the above patient education materials/instructions and have verbalized understanding. If ambulance or transport services are being used I further acknowledge being given a choice of service. ?? If you need to contact me, please call me at this number: . Patient/Automation Technologist Name: Patient/Automation Technologist Signature: Relationship to Patient: Witness Name/Signature: Date: * Linda Youssef RN: PERFORM, SIGN, VERIFY Event Display: Patient Education Handout Authored Date: * Cinthya Owen MD: PERFORM Event Display: Patient Education Leaflets Authored Date: Discharge Instructions for Cardiac Catheterization ?? [id number] Discharge Instructions for Cardiac Catheterization Cardiac catheterization??is an invasive??procedure??to look for certain heart problems. These problems may affect the heart's chambers, valves, and blood vessels. A thin, flexible tube (catheter) is put in a blood vessel in your groin or arm. The catheter is moved to the heart. The healthcare provider can look at the blood flow, blood pressure, and oxygen. They can inject contrast fluid??into your blood. This flows to your heart.??The provider can then take X-rays pictures?? of your heart. Coronary angiography is often done as part of a cardiac cath. This looks for blocked areas in the arteries that send blood to the heart. If a blockage is found, your provider may try to open up the artery. They may put a stent in place. Your provider will talk with you about the results of your procedure . Ask any questions you have before you leave. This sheet will help you take care of yourselfat home. Home care ??? Have a responsible adult drive you home after your procedure. ??? Don't drive or makeany important decisions for at least 24 hours after getting any type of sedation or anesthesia.? Drink?? 6 to 8??glasses of water over the next 24 hours. This is to help flush the contrast dye out of your body. Call your healthcare team if your urine has any change in color. ??? Take your tempe rature each day for 3 to 5 days. If you feel cold and clammy or start sweating, take your temperature right away. Call your healthcare team. ??? Do only light and easy activities for??the next?? 2 to3??days. Ask for help with chores and errands while you recover. Have someone drive you to your appointments. ??? Don't lift anything heavy??until your healthcare team says it's safe. ??? Ask your healthcare team when you can expect to return to work. Unless your job involves lifting, you may be able to return to your normal activities within 2 days. ??? Take your medicines as directed. Don't skip doses. ??? Check your incisions every day for signs of infection. These include redness, swelling,and fluid leaking. It's normal to have a small bruise or bump where the catheter was put in. A bruise that's getting larger is not normal. Tell your healthcare team about this. Call your healthcare team if you see blood forming in the incision. Go to the emergency room if you have uncontrolled bleeding from the artery site. This is even more important if you take medicines that make it hard for your blood to clot. These include aspirin, clopidogrel, warfarin, apixaban, and rivaroxaban. ??? Eat a healthy diet. Make sure it's low in fat, salt, and cholesterol. Ask your healthcare team for diet information. ??? Stop smoking. Sign up for a quit-smoking program. Or ask your healthcare team for help. ??? Exercise as your healthcare team tells you to. Your healthcare team??may advise you to start a cardiac rehab program. Cardiac rehab is an exercise program where trained healthcare staff watchyour progress and stress on your heart while you exercise. Ask your team how to enroll. ??? Don't swim or take baths until your healthcare team says it???s OK. You can shower the day after the procedure. Keep the site clean and dry. This keeps the incision from getting wet and infected until the skin and artery can heal. ??? Follow all other after-care instructions from your team.? Follow-up care ??? Make a follow-up appointment as advised. It's common to have a follow-up appointment 2 to 4 weeks after an angioplasty or coronary stent procedure. ??? Make a yearly appointment. This is??to make sure you're still doing well and not having any new symptoms. ??? Don't wait for a follow-up appointment if your medicines aren't working or you're having heart-related symptoms. Call your healthcare provider. ?? When to get medical care Call your healthcare provider right away if you have any of these: ??? Severe or increasing pain, numbness, coldness, or a bluish color in the leg or arm that held the catheter ??? Fever of 100.4?? F??( 38??C) or higher, or as advised by your healthcare provider ??? Signs of infection at the incision site. These include redness, swelling, drainage, or warmth. ??? Bleeding, bruising, or a lot of??swelling where the catheter was inserted ??? Blood in your urine ??? Black or tarry stools ??? Any unusual bleeding ??? Irregular, very slow, or fast heartbeat ??? Dizziness ?? Call 911 Call 911 if you have any of these: ??? Chest pain ??? Shortness of breath ??? Sudden numbness or weakness in arms, legs, or face, or trouble speaking ??? The puncture site swells up very fast ??? Bleeding from the puncture site that doesn't slow down with firm pressure ?? Last Reviewed Date: 2022 ?? 1685-6655 [employer]. All rights reserved. This information is not intended as a substitute for professional medical care. Always follow your healthcare professional's instructions. ?? * Cinthya Owen MD: PERFORM Event Display: Patient Education Leaflets Authored Date: [id number] Follow-up Appointment After Percutaneous Coronary Intervention (PCI) ?? 50668 Follow-up Appointment After Percutaneous Coronary Intervention (PCI) After percutaneous coronary intervention (PCI) expect that you???ll need regular follow-up appointments with your healthcare provider. The first appointments just after the procedure will focus on how well you are healing after your angioplasty. Later appointments will look at your overall heart health. They will help you address risk factors for heart disease. Before you go home, your healthcare team will schedule your first follow-up visit.??Be sure your appointment is on a day that you can make it. You may want to arrange for someone to help you get to and from your first follow-up appointment. Follow all of the instructions your provider has given youafter your procedure. Call if you have questions. You???ll see your healthcare provider who did the PCI for your first follow-up visit. This will be about a week after the procedure. This provider will check the site where the catheter was inserted.You may also have tests to check your heart and overall health. Going forward, you??may need to seeyour heart care provider or primary care provider regularly. These visits allow your healthcare provider to track your health. They will help manage your heart disease. Last Reviewed Date: 2023 ?? [employer]. All rights reserved. This information is not intended as a substitute for professional medical care. Always follow your healthcare professional's instructions. ?? * Cinthya Owen MD: PERFORM Event Display: Patient Education Leaflets Authored Date: [id number] Lifestyle Management After Percutaneous Coronary Intervention (PCI) ?? 36654 Lifestyle Management After Percutaneous Coronary Intervention (PCI) Percutaneous coronary intervention (PCI)??involves angioplasty and often stenting. This procedure can open arteries and relieve symptoms. But, it doesn???t cure coronary artery disease. New blockagescan still form. You need to take steps to prevent this by managing risk factors. Doing so will helpmake your heart and arteries healthier. Your doctor may prescribe cardiac rehabilitation to help with this lifelong process. Understanding risk factors Some risk factors for coronary artery disease can be controlled. These include smoking, high blood pressure, cholesterol, diabetes, and obesity. They can be managed with medicine, diet, and exercise.Support and counseling can also play a role. The effort will pay off! Managing risk factors can help you be more active, feel better, and reduce the risk of heart attack. ?? If you smoke, get help to quit! If your doctor has been urging you to quit smoking, it???s for good reasons. Smoking damages your heart, blood vessels, and lungs. The good news is that quitting can halt or even reverse the damage of smoking. To quit now: ??? Get medical help. Ask your doctor for advice on stop-smoking programs. Also ask about medicine or nicotine replacement therapy products that may help you quit smoking. ??? Get support. Join a support group. Ask for help from your family and friends. ??? Don???t give up. It often takes several tries to succeed in quitting smoking. ??? Stay away from secondhand smoke. Askfamily and friends not to smoke around you. ?? Last Reviewed Date: 2021 ?? 9028-9370 [employer]. All rights reserved. This information is not intended as a substitute for professional medical care. Always follow your healthcare professional's instructions. ?? * Event Display: Hemodynamic Procedure Report Authored Date: * Linda Youssef RN: VERIFY, PERFORM, SIGN Event Display: Cardiac Rehab Note Authored Date: [id number] Patient: JAKY ALEJANDRO Age: 63 years Sex: Female : 1960 Associated Diagnoses: None Author: Linda Youssef RN Attempted to visit with pt post PCI to provide pt with education- pt upset, crying with cold towel on her head c/o chest pain. Bedside RN aware, will visit with pt again tomorrow. Please page [phone] with questions or if pts condition changes Admission evaluation note * Chio Mcarthur MD: PERFORM, MODIFY, MODIFY, MODIFY, MODIFY, MODIFY, MODIFY, MODIFY, MODIFY, MODIFY Event Display: Admission Note Authored Date: [id number] Patient: ??JAKY ALEJANDRO ? Age:??63 Years?Sex:??Female?:??1960?? Chief Complaint/Reason for Consultation NSTEMI History of Present Illness Jaky is a 63 years old patient with??a past medical history of hypothyroidism, anxiety/depression/PTSD, chronic back pain who was transferred from [facility] due to concern for NSTEMI. ?? Patient says that she has been having fatigue and shortness of breath for the past month that has been mainly exertional, but she denied having any orthopnea/PND's.?? She denies having any chest paineither.?? Her symptoms have been progressive, however worsened around 1 week ago, she decided to goto urgent care on Saturday, she was diagnosed with pneumonia, prescribed Augmentin and albuterol andsent home.?? She was surprised about her diagnosis as she said she never had a cough.?? Her symptoms acutely worsened last night, and the patient woke up this morning complaining of shortness of breath, nausea, and she subsequently vomited.?? She also started having substernal chest pain which she initially attributed to reflux that she has had in the distant past, however she said it was not relieved with antacids.?? Her chest pain became left-sided and nonradiating, and she describes it as pressure-like/somebody sitting on her chest.?? She called EMS, was transferred to [facility]. ?? On presentation, the patient was??hemodynamically stable, however slightly hypertensive at 178/64, and??slightly bradycardic at 58.?? Lab work showed an unremarkable CBC, unremarkable??CMP.?? Initialtroponin 59.9, which later up trended to 293.?? EKG showed??normal sinus rhythm,??nonspecific??ST se gment??changes.?? CXR with no acute abnormality.?? Due to uptrending troponins and concern for NSTEMI, patient was transferred to [facility].?? She had already received??an aspirin load by EMS??on the way to [facility]. ??She was started??on a heparin drip??later, given sublingual nitroglycerin ??X.3,??morphine,??Zofran, and a PPI. ?? Upon arrival,??patient was hemodynamically stable, however she was slightly hypertensive??with systolics??in the 150s, and slightly bradycardic??in the 50s.?? She was still having 7/10??chest pain. ??EKG was obtained upon arrival,??showing sinus bradycardia, however no??ST segment changes.?? Patient was started on a nitroglycerin drip??for the chest pain, however it was??titrated up to??200 mcg/hour??without any improvement in her chest pain. ??She did receive 0.5 mg Dilaudid??once,??which improved her pain. ??The drip was eventually discontinued. ? Review of Systems A full ROS was obtained and is negative except as mentioned above in the HPI Objective Vital Signs?? Temperature: 98 DegF (01/09/24:28:00) Temperature Route: Oral (01/09/24::00) Pulse Rate: 58 bpm (01/09/24:28:00) Respiratory Rate: 19 br/min (01/09/24:28:00) Systolic Blood Pressure:??151 mm Hg??High (01/09/24::00) Diastolic Blood Pressure:??93 mm Hg??High (01/09/24::00) Blood pressure sites: Arm, right (01/09/24::00) Mean Arterial Pressure: 112 mm Hg (01/09/24::00) Pulse Pressure: 58 mm Hg (01/09/24::00) Early Warning Score: 0 (01/09/24 22:25:22) ? Physical Exam General:??No acute distress Respiratory:??Clear to auscultation bilaterally, no increased work of breathing Cardiovascular:??Normal rate, regular rhythm, no murmurs. ??No tenderness to??chest palpation. Abdomen:??No tenderness MSK: No LE edema Neurologic:??Alert & Oriented Psychiatric:??Normal mood/affect Assessment/Plan Jaky is a 63 years old patient with??a past medical history of hypothyroidism, anxiety/depression/PTSD, chronic back pain who was transferred from [facility] due to concern for NSTEMI. ?? Chest pain NSTEMI Sinus Bradycardia Patient definitely has risk factors for CAD??given obesity,??tobacco use disorder (has smoked almost??a pack a day since the age of 29). ??Denies any alcohol use,??drug abuse, or any history of??premature CAD in her family, however her mom??did have a heart attack and ended up with a CABG??at the age of 70.?? Her chest pain is somewhat typical??with it being left-sided, pressure- like, feels like somebody sitting on her chest.?It is not tender to palpation, and??not relieved by??sitting upright/antacids. ??Her troponins are slowly uptrendin -- 174 -- 181 There might be??a component of??anxiety to her chest pain as it??did not respond at all to??the nitroglycerin drip despite??maximum dose, and it responded to??Dilaudid. Plan: ?Aspirin 81 mg daily ?Atorvastatin 80 mg daily at bedtime ??? Continue heparin drip ??? Dilaudid 1 mg??every 4 hours as needed??for??chest pain ?Trend??troponins to peak ?Add on A1c??and lipid panel ?EKG as needed for??chest pain ?Obtain echo ??? N.p.o.??after midnight for cath tomorrow ?? Chronic medical conditions: ??? Hypothyroidism: Continue home levothyroxine ?Anxiety/PTSD: Continue home clonazepam ?Chronic back pain: Continue home gabapentin, patient says that she rarely uses it??and only uses it as needed. ??? Asthma: Continue home albuterol??as needed ?? Quality Metrics: Diet:??Cardiac diet, n.p.o. after midnight DVT/VTE Prophylaxis:??Heparin drip CODE STATUS:??Full Family: Tien Garza [phone]. ??Patient says??this is a friend of hers who should be her primary point of contact??for now as her sisters recently got diagnosed with??breast cancer and??are dealing with a lot. ?? Patient has been??seen and discussed with ??Chikis, steam clean machine operator Chio??MD [facility] ?? Histories Allergies Allergies ?(Active and Proposed Allergies Only) sulfADIAZINE? (Severity: Unknown severity, Onset: Unknown) Pollen? (Severity: Unknown severity, Onset: Unknown) Dust? (Severity: Unknown severity, Onset: Unknown) lidocaine? (Severity: Unknown severity, Onset: Unknown) fentanyl? (Severity: Unknown severity, Onset: Unknown) Versed? (Severity: Unknown severity, Onset: Unknown) Cipro? (Severity: Unknown severity, Onset: Unknown) ?Reactions: HIVES, ANAPHYLACTIC SHOCK ? Past Medical History/Problem List Active Problems??(2) Bacterial urinary tract infection Oral thrush ? Past Surgical History Diagnostic endoscopy: 01/11/15 Excisional biopsy of breast/left terminal duct: 11/11/08 Cholecystectomy;: 11/11/04 Tubal ligation ? Social History Alcohol Details:??Use: Never. Employment/School Details:??Status: Disabled. Exercise Details:??Self assessment: Poor condition. Home/Environment Details:??Living situation: Home/Independent. ??Lives with: Spouse. Nutrition/Health Details:??Diet: Regular. Substance Abuse Details:??Use: Never. Tobacco Details:??Current every day smoker, Type: Cigarettes. ??Tobacco use times per day: one pack a day. ??30 Number of years:. ??Previous treatment: Nicotine replacement. ??Interested in cessation: Yes. ??Cessation attempts: 5. ? Family History Mother: Cancer of breast; Cancer of ovary Sister (no): Cancer of breast Sister (sister): Cancer of breast ? Medications Home Medications Albuterol (albuterol CFC free 90 mcg/inh inhalation aerosol)?1?puff(s)?Inhalation?4 times a day?as needed?as needed for wheezing Clonazepam (KLONopin Tablet)?1?Milligram?By Mouth?3 times a day Gabapentin (gabapentin 300 mg oral capsule)?300?Milligram?1?capsule?By Mouth?2 times a day?as needed?As needed for back pain?Pain , Mild Levothyroxine (levothyroxine 137 mcg (0.137 mg) oral capsule)?1?capsule?137?Microgram?By Mouth?Daily ? Inpatient Medications Medications (18) Active SCHEDULED: (3) Clonazepam 1 mg Tablet (KLONopin Tablet) ??1 mg, By Mouth, 3 times a day Levothyroxine 137 mcg Tablet (levothyroxine 0.137 mg oral tablet) ??137 mcg, By Mouth, Daily NaCl 0.9% Flush 3ml (NaCL 0.9% Flush) ??3 mL, IV Push, Every 8 hours CONTINUOUS: (2) Heparin 25,000 units [10 units/kg/hr] + Dextrose 5% in Water 250 mL (Heparin 25,000 units in 250 mLPremix 25,000 units [10 units/kg/hr] + D5%W Premixed IV 250 mL) ??250 mL, IV Infusion, 9.4 mL/hr Nitroglycerin 100 mg Cont IV 100 mg (Nitroglycerin 100 mg/250 mL D5W 100 mg) ??100 mg 250 mL, IV Infusion PRN: (13) Acetaminophen 325 mg Tablet (Acetaminophen Tablet) ??650 mg, By Mouth, Every 4 hours Albuterol 90mcg/Inhalation Inhaler HFA (albuterol CFC free 90 mcg/inh inhalation aerosol) ??90 mcg 1 puffs, Inhalation, 4 times a day Dextromethorphan-Guaifenesin 20 mg-200 mg/10 mL Liqu UD (Robitussin DM Liquid) ??10 mL, By Mouth, Every 4 hours Docusate Sodium 100 mg Capsule (Docusate Sodium Capsule) ??100 mg 1 capsule, By Mouth, 2 times a day Gabapentin 300 mg Capsule (gabapentin 300 mg oral capsule) ??300 mg, By Mouth, 2 times a day Heparin 5000 units/mL Inj (1 mL) (Heparin Inj) ??5,640 units 1.13 mL, IV Push, Every 6 hours Heparin 5000 units/mL Inj (1 mL) (Heparin Inj) ??2,760 units 0.55 mL, IV Push, Every 6 hours Melatonin 3 mg Tablet (Melatonin Tablet) ??3 mg, By Mouth, Daily at bedtime NaCl 0.9% Flush 3ml (NaCL 0.9% Flush) ??3 mL, IV Push, Every 8 hours Ondansetron 2mg/mL Inj (2mL Vial) (Zofran Inj) ??4 mg, IV Push, Every 6 hours Polyethylene Glycol 17 Gm Powder (MiraLax Powder) ??17 Gm 1 pack/packet, By Mouth, Daily Senna Tablet ??8.6 mg 1 tablet, By Mouth, 2 times a day Simethicone 80 mg Chewable Tablet (Simethicone Tablet) ??80 mg, Chew, 3 times a day ? Results Recent Labs BLOOD COUNT & DIFF WBC 10.1 k/mm3 ()?? 01/09/2024 20:56 RBC 5.22 m/mm3 ()?? 01/09/2024 20:56 Hgb 14.7 Gm/dL ()?? 01/09/2024 20:56 Hct 45.7 % ()?? 01/09/2024 20:56 MCV 87.5 femtoliters ()?? 01/09/2024 20:56 MCH 28.2 pg ()?? 01/09/2024 20:56 MCHC 32.2 g/dL (Low)?? 01/09/2024 20:56 Platelet Count 281 k/mm3 ()?? 01/09/2024 20:56 RDW-SD 43.1 femtoliters ()?? 01/09/2024 20:56 MPV 9.9 femtoliters ()?? 01/09/2024 20:56 Nucleated RBC (Automated) 0.0 #/100 WBC'S ()?? 01/09/2024 20:56 Abs. NRBC 0.0 k/mm3 ()?? 01/09/2024 20:56 ? US Heart * Event Display: Echocardiogram - Complete Authored Date: Transthoracic Echocardiography Report (TTE) Patient Demographics Patient Name JAKY ALEJANDRO Date of Study 01/10/2024 Corporate Gender Female Facility Race Ethnicity Date of 1960 Height: 65.35 inches Age 63 year(s) Weight: 211.87 pounds Accession Number [id number] BSA: 2.04 m2 Room Number M510 BMI: 34.87 kg/m2 Referring Physician Lyubov Barroso MD Interpreting Coral Torres MD Physician Marbleizing Machine Tender Andrey Newby [facility] Indications NSTEMI. Clinical History Chest pain. Shortness of breath. NSTEMI. Study Data Type of Study TTE procedure:Echo Complete-(Doppler, Colorflow) with Contrast. Procedure Information:Definity was administered by Network Architect Manager . Study Date01/10/2024 Start Time: 02:50 PM Study Location: [facility] Adult Echo Study Status: Bedside Patient Status: Routine Technical Quality: Technically difficult due to body habitus. Blood Pressure:174/84 mmHg EKG: Within normal limits HR: 52 bpm Contrast Medium: Definity. Amount - 2 ml 2D Measurements LA ESV (BP):57.5 ml LA ESV Index: 28 ml/m2 Doppler Measurements AV Peak Velocity: 156 cm/s MV Peak E-Wave: 82.7 cm/s AV Peak Gradient: 9.73 mmHg MV Peak A-Wave: 59 cm/s MV E/A Ratio: 1.4 LVOT Peak Velocity: 124 cm/s MV P1/2t: 55 msec LVOT VTI25.8 cm MV Deceleration Time: 187 msec MV Area (PHT): 4 cm2 E' Septal Velocity: 7.07 cm/s E' Lateral Velocity: 7.07 cm/s E/Med E':11.92809 E/Lat E':11.41100 Cardiac Anatomy Left Ventricle/Interventricular Septum The left ventricle is normal in size. Systolic function is preserved. Ejection fraction is 55-65%. While no definite wall motion abnormalities detected, cannot be excluded. Diastolic function could not be determined. Left Atrium/Interatrial Septum The left atrium is normal in size. Aortic Valve The aortic valve is poorly visualized. It appears thickened and calcified. Mild regurgitation. No significant stenosis. Mitral Valve The mitral valve is poorly visualized. No significant regurgitation or stenosis. Aorta Not visualized. Right Ventricle The right ventricle is normal in size. Function was difficult to accurately evaluate. Right Atrium The right atrium is normal in size. Pulmonic Valve Not visualized. Tricuspid Valve The tricuspid valve is poorly visualized. Pumonary Artery An accurate pulmonary artery pressure could not be obtained. Venous Structures IVC poorly visualized. Pericardium/Extracardiac No definite pericardial effusion detected but cannot be excluded. Summary The left ventricle is normal in size. Systolic function is preserved. Ejection fraction is 55-65%. While no definite wall motion abnormalities detected, cannot be excluded. Diastolic function could not be determined. The left atrium is normal in size. The right ventricle is normal in size. Function was difficult to accurately evaluate. The right atrium is normal in size. Comparison No prior study available for comparison. Signature * Event Display: Echocardiogram - Complete Authored Date: Cardiology * Event Display: Cardiac Rhythm Strips Authored Date: Hospital Progress note * Pham Roberts RN: MODIFY, SIGN, VERIFY, PERFORM Event Display: Progress Note Hospital Authored Date: Patient: JAKY ALEJANDRO Age: 63 years Sex: Female : 1960 Associated Diagnoses: None Author: Pham Roberts RN Findings Problem Related to Alteration in Cardiac Function (new) : Alteration in Cardiac Function/new 01/11/2024 11:00 EST Alteration in Cardiac Status Related to ACS, Cardiac Procedure, Chest pain, Other: nstemi Goals & Outcomes, Cardiac Status Pt will resume/maintain adequate cardiac output, Pt will resume/maintain adequate hemodynamic status, Pt will resume/maintain adequate respiratory function, Pt will resume/maintain intact neuro function, Pt will maintain adequate GI/ function appropriate for pt, Pt will maintain adequate nutrition status, Pt/caregiver will state understanding of diagnosis, Pt/caregiver will state strategies to reduce risk factors, Pt/caregiver will state understanding of procedure, Pt will state pain at procedure site to be tolerable Cardiac Interventions Implemented Assess/monitor cardiac status, Assess/monitor neuro status, Assess/monitor respiratory status, Assess for tolerance of IV infusions; verify rate & dose, Call/Report variances in ECG to provider, Document & Monitor O2 Sats; Administer O2 as ordered, If no bowel movement in 3 days activate bowel regime, Team conversation regarding appropriate level of care,Turn & reposition Q2 hours per activity restrictions, Bed Rest during periods of chest discomfort, Monitor for anxiety, shortness of breath, diaphoresis Goals/Interventions, Cardiac Yes Cardiac, Problem Start 01/09/2024 22:45 Reviewed Plan with, Cardiac Status Patient Patient Progression, Cardiac Status Plan Initiation . Nursing Data Cardiac Data. : Cardiac Data. 01/11/2024 8:00 EST Cardiovascular Symptoms Chest pain, Chest pressure, Chest tightness, Edema present (Modified) Cardiac Rhythm Sinus bradycardia Cardiac Rhythm Normal sinus rhythm, Sinus bradycardia Radial Pulse, Left Normal Radial Pulse, Right Normal Dorsalis Pedis Pulse, Left Normal Dorsalis Pedis Pulse, Right Normal Ankle, left 2+ mild Ankle, right 2+ mild cut plug packer Yes Cardiovascular WNL except . Neurological Data. : Neurological Data. 01/11/2024 8:00 EST Neurological Symptoms Headache: persistent, changing or sudden, Weakness or loss of muscle strength Orientated to person, place, time Person, Place, Time, Event Facial Symmetry Intact Characteristics of Speech Clear and normal Tone LUE Normal Tone RUE Normal Tone LLE Normal Tone RLE Normal Sensation LUE Intact Sensation RUE Intact Sensation LLE Intact Sensation RLE Intact Movement LUE Spontaneous, To command Movement RUE Spontaneous, To command Movement LLE Spontaneous, To command Movement RLE Spontaneous, To command Gait Unsteady Response Eye Opening Spontaneously Motor Response-Adult Obeys commands Verbal Response-Adult Oriented and converses [place] Coma Score 15 Neuro WNL except Eyes and Movements Conjugate gaze: Move in same direction at same speed Swallow - Neuro Normal . Evaluation Pt A&O x 4. Very anxious. Able to follow commands. Complained of 7/10 headache at beginning of shift, now complaining of 4/10 stomach and chest pain, MD aware, tylenol given, continuing to monitor. SB 40-50s and SR 60s on tele. Pedal and radial pulses 2+ BL. 2+ Edema present in BLE. BL Lungs clear, on room air. Complained of shortness of breath at rest and upon exertion at beginning of shift,now denying SOB and walking with standby assist to bathroom with no issues. PHELPS spontaneously. Continent of bowel and bladder, now ambulating to bathroom with standby assist. Positive bowel sounds inall 4 quadrants. Abdomen round, soft, and nontender. Gave prn zofran for nausea this AM with relief. LBM 3/1. Skin warm and dry. IV in L and R forearms both patent and flushing well. Bed locked and in lowest position. Call cardenas within reach. Safety precautions maintained. See cis for complete biophysical.. * Marlon Galicia RN: VERIFY, PERFORM, SIGN Event Display: Progress Note Hospital Authored Date: Patient: JAKY ALEJANDRO Age: 63 years Sex: Female : 1960 Associated Diagnoses: None Author: Marlon Galicia RN Findings Evaluation pt A&Ox4 reports 3/10 chest pain, back pain and is very anxious. pt is SB on tele and VSS on 2 L nasal canula. Tonight pt has not had any episodes of HR in the 30s or nodding off. pt was able to get up and use commode without any increased pain or SOB. pt skin is intact, has trace BLE edema, lung sounds clear and her main complaints are anxiety about not being able to have a BM unless she is home and she refused to take bowel regime medications. call cardenas is in reach, will monitor and update as needed, see CIS for full assessment. . * Cinthya Owen MD: PERFORM, MODIFY, MODIFY Event Display: Progress Note Hospital Authored Date: Patient: ??JAKY ALEJANDRO ? Age:??63 Years?Sex:??Female?:??1960?? Subjective Overnight into this morning, Jaky continues to endorse severe chest pain that is reproducible andis not improved with high-dose nitroglycerin drip, but moderately improved with opioids. Has some associated shortness of breath this AM, requiring 2L NC. Also has had episodes of bradycardia down tothe low 40s, but no evidence of heart block on tele or EKG. Review of Systems Objective Measurements?? Height: 166 cm (01/09/24) Weight: 96.1 kg (01/10/24) Dry Weight: 94 kg (01/09/24) Body Mass Index:??34.4 kg/m2??Critical (01/09/24) ? Vital Signs?? Temperature: 97.9 DegF (01/10/24 16:00:00) Temperature Route: Oral (01/10/24 16:00:00) Pulse Rate:??47 bpm??Low (01/10/24 16:00:00) Heart Rate Monitored:??52 bpm??Low (01/10/24 16:00:00) Respiratory Rate: 16 br/min (01/10/24 16:28:00) Respiratory Rate: 16 br/min (01/10/24 16:28:00) Systolic Blood Pressure: 137 mm Hg (01/10/24 16:00:00) Diastolic Blood Pressure: 62 mm Hg (01/10/24 16:00:00) Blood pressure sites: Arm, right (01/10/24 16:00:00) Mean Arterial Pressure: 112 mm Hg (01/09/24 21:28:00) Pulse Pressure: 75 mm Hg (01/10/24 16:00:00) Oxygen Saturation:??92 %??Low (01/10/24 16:00:00) Liters per Minute: 4 L/min (01/10/24 16:00:00) Mode of Delivery (Oxygen): Nasal cannula (01/10/24 16:00:00) Early Warning Score: 5 (01/10/24 16:28:51) ? Intake/Output? 20:37 01/09 07:00 07:00 01/08 07:00 01/07 07:00 ?? 01/09 16:40 01/09 16:40 01/09 06:59 06:59 01/08 06:59 Intake ? 1323.9 ? 1084.7 ?239.2 ?0 ?0 Output ?450 ?450 ?0 ?0 ?0 Net Total ?873.9 ?634.7 ?239.2 ?0 ?0 ? Urine Count ?1 ?1 ?0 ?0 ?0 ? Physical Exam General: Mild??acute distress 2/2 anxiety as pt is tearful, well-nourished HEENT:??Moist mucus membranes, EOMI, no scleral icterus, neck??supple Respiratory:??Clear to auscultation bilaterally, mild??increased work of breathing, no wheezes/crackles, good aeration to lung bases Cardiovascular: Heart sounds??distant but slow??rate (50s), regular rhythm, no murmurs, peripheral pulses intact Abdomen:??soft, non-tender, non-distended Musculoskeletal: Trace??LE edema, moving all extremities normally Neurologic:??Alert & Oriented, CN grossly??II-XII intact Skin:??Warm and dry, No rashes or lesions Psychiatric:??Anxious??mood/affect, normal cognition, normal judgement Assessment/Plan Jaky is a??63 year??old with hypothyroidism, anxiety/depression/PTSD, chronic back pain who??presented to [facility] for 1mo of progressive fatigue, chest pain, and worsening SOB??transferred to [facility] for NSTEMI??s/p cardiac cath with LUIS to LCx on 01/10/24. ?? NSTEMI s/p LUIS to LCx Sinus Bradycardia Essential Hypertension Pt presented with chest pain (left-sided, pressure-like, although not improved with nitro drip, only responds to diladid) and SOB with associated nausea/vomiting. EKG normal sinus, but trops uptrending concerning for NSTEMI. CAD risk factors:??obesity, tobacco use disorder (34 pack years). Total cho lesterol 272, LDL 209, HDL 46, triglycerides 83.??Denies any alcohol or drug use, A1c 5.9, and no premature CAD in family, although mother with CABG at age 70. CXR negative. Cardiac cath revealed right dominant circulation with 60-70% stenosis of mid LAD and small diagonal branches that are diseased at the ostium; 95% proximal LCx, 70% and 95% sequential proximal circumflex stenosis and a 50% OM 2 stenosis; 30% proximal RCA stenosis; 60 to 70% ostial stenosis of a moderate size RPDA; LVEDP is 15-20 mmHg. Echo 01/10/24: LV normal in size, EF 55- 65%, no definite wall abnormalaties. Sinus bradycardia down to 40s??prior to cath with no evidence of heart block possibly 2/2 increasedvagal tone; improved s/p LUIS.? Plan: ?Discontinued heparin drip s/p LUIS -- Aspirin 81 mg daily -- Carvedilol 3.125 for BP control considering improved bradycardia -- S/p Ticagelor 180mg loading dose; to transition to ticagrelor 90mg BID (100% covered by her insurance) ?Rosuvastatin 40 mg daily ?Tylenol 975mg Q6H + lidocaine patch for chest pain ?? Chronic medical conditions ?Hypothyroidism: TSH elevated to 8 but T4 wnl. Continue home levothyroxine ?Anxiety/PTSD: Continue home clonazepam ?Chronic back pain: Continue home gabapentin??PRN ?Asthma: Continue home albuterol as needed ?? Quality Metrics CODE STATUS: Full Diet: Cardiac diet DVT/VTE Prophylaxis: Lovenox Family: Tien Garza [phone]. Patient says this is a friend of hers who should be her primary point of contact for now as her sisters recently got diagnosed with breast cancer and are dealing with a lot. OMN: pending improvement in clinical status ?? Patient seen and discussed with attending, Dr. Damon. ?? Cinthya Owen MD Internal Medicine-Pediatrics PGY1 Pager #[phone] Patient Care team information Care Team Personnel Name: Gregoria Montiel Position: S Outreach Member Role: Lifetime Consulting Physician Name: April Lund Position: [facility] Outreach Member Role: Lifetime Consulting Physician Name: Otilia Jensen RN Position: [facility] RN Member Role: Primary Care Nurse Name: Tawanna Villalpando RN Position: S RN Member Role: Primary Care Nurse Name: Marlon Galicia RN Position: [facility] RN Member Role: Primary Care Nurse Care Team Related Persons Name: ZAIRE GILLESPIE Address: [address] [address] Name: ERICKA ALEJANDRO
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
== END 2024-03-02 14:32 | disposition home or self-care (01) ==
LOC: HO.HOP 13:23
PROVIDERS: PCP Nurse Practitioner Primary Care; Visit Provider Psychiatry & Neurology Psychiatry
DX: F31.81 Bipolar II disorder (principal); F43.12 Post-traumatic stress disorder, chronic
CPT/HCPCS: 90833; 99213

== ENCOUNTER 2024-03-05 10:45 | Outpatient (REF) | payer MEDICARE, MEDICAID, SELFPAY ==
[2024-03-05 11:46] LABS: Estimated Average Glucose 120 mg/dL; Hemoglobin A1c % 5.8 % (<6.0)
[2024-03-05 12:31] LABS: Alanine Aminotransferase 15 U/L (0-31); Albumin Level 4.5 g/dL (3.5-5.0); Alkaline Phosphatase 84 U/L (39-117); Anion Gap 11 (12-20); Aspartate Amino Transferase 16 U/L (5-31); Bilirubin Total 0.9 mg/dL (0.0-1.0); Blood Urea Nitrogen 9 mg/dL (9-16); Calcium 10.1 mg/dL (8.4-10.2); Carbon Dioxide 30 mmol/L (22-29); Chloride 106 mmol/L (96-108); Estimated Glomerular Filt Rate > 60; Glucose Random 110 mg/dL (60-115); Potassium 4.3 mmol/L (3.3-5.1); Sodium 143 mmol/L (135-145); TSH reflex Free T4 0.14 uIU/mL (0.32-4.0); Total Protein 7.4 g/dL (6.5-8.0)
[2024-03-05 13:11] LABS: Free T4 (Free Thyroxine) 1.74 ng/dL (0.71-1.85)
== END 2024-03-05 10:46 | disposition home or self-care (01) ==
LOC: HO.LAB 10:45
PROVIDERS: Visit Provider Psychiatry & Neurology Psychiatry
DX: E03.9 Hypothyroidism, unspecified (principal); I25.10 Atherosclerotic heart disease of native coronary artery without angina pectoris; F43.10 Post-traumatic stress disorder, unspecified; F31.81 Bipolar II disorder
CPT/HCPCS: 36415; 80053; 83036; 84439; 84443

== ENCOUNTER 2024-04-16 13:04 | Outpatient (AMB) | payer MEDICARE, MEDICAID, SELFPAY ==
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
== END 2024-04-16 18:02 | disposition home or self-care (01) ==
LOC: HO.HOP 13:04
PROVIDERS: PCP Nurse Practitioner Primary Care; Visit Provider Psychiatry & Neurology Psychiatry
DX: F43.12 Post-traumatic stress disorder, chronic (principal); F31.81 Bipolar II disorder
CPT/HCPCS: 90833; 99213

== ENCOUNTER → 2024-04-16 13:04 | Outpatient (BNVA) | payer MEDICARE, MEDICAID, SELFPAY | PROVIDERS: PCP Nurse Practitioner Primary Care; Visit Provider Psychiatry & Neurology Psychiatry | DX: F43.12 Post-traumatic stress disorder, chronic (principal); F31.81 Bipolar II disorder | CPT/HCPCS: 99212 ==

== ENCOUNTER 2024-05-25 08:47 | Outpatient (AMB) | payer MEDICARE, MEDICAID, SELFPAY ==
[2024-05-25 08:53] VITALS: BP 150/62; PULSE 72; TEMP 37.7; O2SAT 97; BMI 33.5
--- NOTE | 2024-05-25 08:53 | AM.OFFWIN_ITS ---
Intake Vital Signs 05/25/24 08:53 Height 5 ft 5 in Weight 201 lb 2 oz BMI 33.5 BP 150/62 H Blood Pressure Location Rt brachial Position Sitting Pulse 72 Pulse Source Pulse Oximeter Temp 99.8 F Temp Source Oral Pulse Oximetry (%) 97 Oxygen Delivery Method Room Air Intake Visit Reasons: EP painful bruising on lft arm Intake Note: Pt is here for Lt am swelling pt states she think its broken. Patient Tobacco Use Status: Current everyday Tobacco user Allergies adhesive tape [Adhesive Tape] Allergy (Mild, Verified 05/25/24 08:58) BURNING RASH ciprofloxacin [From Cipro] Allergy (Unknown, Verified 05/25/24 08:58) ANAPHYLAXIS Do you need a note to return to daycare/school/sports/work: No HPI HPI Comments History of Present Illness Details Patient presents to the walk-in today for sick visit Complaining of bruising to left forearm Denies known injury but is concerned that she broke it History of ST-elevation [place] 4 months ago, currently taking Brilinta. Denies active bleeding, nosebleeds, blood in vomit, urine or stool. [facility] Medical History (Updated 05/25/24 @ 09:37 by Lilly Flores APRN, ELEVATOR ERECTOR HELPER) Chronic post-traumatic stress disorder (PTSD) Pneumonia Post traumatic stress disorder (PTSD) Bipolar 2 disorder Asthma Cholecystectomy planned Cellulitis Hypothyroid Anxiety Surgical History (Updated 01/16/24 @ 12:35 by MADISON Vega) Hx of tubal ligation Hx of bladder repair surgery H/O lumpectomy Hx of cholecystectomy Family History (Updated 01/16/24 @ 12:37 by MADISON Vega) Father No problems noted. Mother Hypertension Diabetes History of open heart surgery Social History Housing: Other Alcohol intake: never Patient Tobacco Use Status: Current everyday Tobacco user Tobacco use type: Cigarette e-Cigarette/Vaping Use: Never Used Substance Use Type: Marijuana Current occupational status: disabled Cognitive needs: No Hearing needs: No Vision needs: No Review of Systems Const All systems reviewed & are unremarkable except as noted in HPI and below Physical Exam Vital Signs: Last Vital Signs Temp 99.8 F 05/25/24 08:53 Pulse 72 05/25/24 08:53 BP 150/62 H 05/25/24 08:53 Pulse Ox 97 05/25/24 08:53 Oxygen Delivery Method Room Air 05/25/24 08:53 BMI result Body Mass Index 33.5 General: awake, alert, oriented. Answers questions appropriately. Fully engaged in examination. Skin: warm, dry, intact. Diffuse bruising to arms and legs of different ages healing. Yellow, purple bruising to left posterior forearm. HEENT: Normocephalic. Hearing intact. Cardiac: External chest normal in appearance. Respiratory: No cough, audible wheezing or stridor. Abdomen: without gross distension. MS: No obvious swelling or deformities. Left forearm: Full range of motion. CMS intact. 2+ radial pulse Neurological: Oriented to person, place, time and situation. Thought process intact. No gait abnormalities appreciated. Psychiatric: Appropriate mood and affect. Good judgment and insight. Assessment & Plan Assessment & Plan (1) Bruising: Code(s): T14.8XXA - Other injury of unspecified body region, initial encounter (2) Anticoagulants causing adverse effect in therapeutic use: Code(s): T45.515A - Adverse effect of anticoagulants, initial encounter Plan Reassurance provided, bruising side effect Brilinta use Review of most recent labs, 01/29/2024 platelets 311. No current, active bleeding Patient advised to follow up with Cardiology for PCP to further discuss Take careful precautions to prevent further bruising Follow up with PCP/cardiology. Return here for any new or worsening symptoms Coding Level of Care Code Est Pt Level 3 (74546) Diagnoses Bruising T14.8XXA Anticoagulants causing adverse effect in therapeutic use T45.515A
== END 2024-05-25 10:06 | disposition home or self-care (01) ==
PROVIDERS: PCP Nurse Practitioner Primary Care; Visit Provider Registered Nurse Emergency
DX: T14.8XXA Other injury of unspecified body region, initial encounter (principal); T45.515A Adverse effect of anticoagulants, initial encounter
CPT/HCPCS: 99213

== ENCOUNTER 2024-06-08 08:14 | Outpatient (AMB) | payer MEDICARE, MEDICAID, SELFPAY ==
[2024-06-08 08:16] VITALS: BP 126/74; PULSE 68; O2SAT 98; BMI 32.6
--- NOTE | 2024-06-08 08:16 | A.OFFPC_ITS ---
Vital Signs 06/08/24 08:16 Height 5 ft 5 in Weight 196 lb BMI 32.6 BP 126/74 Blood Pressure Location Lt brachial Position Sitting Pulse 68 Pulse Source Pulse Oximeter Pulse Oximetry (%) 98 Oxygen Delivery Method Room Air Intake Visit Reasons: Transfer from [facility] Intake Note: Pt is here today for a Transfer a care. Pt states that he has L lower leg pain and she has a bruise. Pt states that she is concerned about bruising all over her body. Allergies adhesive tape [Adhesive Tape] Allergy (Mild, Verified 06/08/24 08:20) BURNING RASH ciprofloxacin [From Cipro] Allergy (Unknown, Verified 06/08/24 08:20) ANAPHYLAXIS Medication List - Last Reconciled 06/08/24 by Hien Carlos MD albuterol 90 mcg/actuation 2 mcg inhalation Q4H PRN albuterol sulfate 90 mcg/actuation (Ventolin HFA) 2 puffs inhalation Q4H PRN amlodipine 2.5 mg (1/2 x 5 mg) PO DAILY aripiprazole 2 mg PO DAILY aspirin 81 mg PO DAILY clonazepam 0.5 - 1 mg (0.5 - 1 x 1 mg) PO TID epinephrine 0.3 mL IM ONCE PRN fluticasone propionate 110 mcg/actuation (Flovent HFA) inhalation gabapentin 300 mg PO BEDTIME lamotrigine 150 mg PO BID 30 days levothyroxine (Synthroid) 137 mcg PO DAILY miscellaneous medical supply (Blood Pressure Cuff) As directed ondansetron 4 mg PO Q8H PRN rosuvastatin 40 mg PO DAILY ticagrelor (Brilinta) 90 mg PO BID Tobacco use date assessed: 06/08/24 Dental Screening Dental Screen Date: 01/16/24 HPI Transfer from [facility] Details Pt presents for f/u HTN, hypothyroidism hyperlipidemia, coronary artery disease s/p LUIS for NSTEMI . Patient follows up with Psychiatry for depression/PTSD stable on current medications. [facility] Medical History (Updated 06/08/24 @ 15:55 by Hien Carlos MD) Non-ST elevation [place] (NSTEMI) Chronic post-traumatic stress disorder (PTSD) Pneumonia Post traumatic stress disorder (PTSD) Bipolar 2 disorder Asthma Cholecystectomy planned Cellulitis Hypothyroid Anxiety Surgical History Hx of tubal ligation Hx of bladder repair surgery H/O lumpectomy Hx of cholecystectomy Family History Father No problems noted. Mother Hypertension Diabetes History of open heart surgery Social History Housing: Other Alcohol intake: never Patient Tobacco Use Status: Former Tobacco user (February 21) e-Cigarette/Vaping Use: Never Used Substance Use Type: Marijuana service: No Current occupational status: disabled Cognitive needs: No Hearing needs: No Vision needs: No Questionnaire PHQ-9 Over the last 2 weeks, how often have you been bothered by any of the following problems? 1. Little interest or pleasure in doing things: not at all 2. Feeling down, depressed, or hopeless: not at all 3. Trouble falling or staying asleep, or sleeping too much: not at all 4. Feeling tired or having little energy: not at all 5. Poor appetite or overeating: not at all 6. Feeling bad about yourself - or that you are a failure or have let yourself or your family down: not at all 7. Trouble concentrating on things, such as reading the newspaper or watching television: not at all 8. Moving or speaking so slowly that other people could have noticed. Or the opposite - being so fidgety or restless that you have been moving around a lot more than usual: not at all 9. Thoughts that you would be better off or of hurting yourself in some way: not at all Total score: 0 Depression Screening Interpretation: Negative Depression Screening Done: Yes Source: Developed by Drs. Phillip Narayanan, Karime Antunez, Tank Merino and colleagues, with an educational manuelito from [employer]. Thrive Questionnaire Date Thrive assessed: 06/08/24 I am a: Patient What is your living situation today?: I choose not to answer this question Within the past 12 months, did the food you bought not last and you didn't have the money to get more?: I choose not to answer this question Within the past 12 months, did you worry whether your food would run out before you got money to buy more?: I choose not to answer this question Do you have trouble paying for medicines?: I choose not to answer this question Do you have trouble getting transportation to medical appointments?: I choose not to answer this question Do you have trouble paying your heating and electricity bill?: I choose not to answer this question Do you have trouble taking care of your child, family member or friend?: I choose not to answer this question Do you have trouble with day-to-day activities such as bathing, preparing meals, shopping, managing finances, etc.?: I choose not to answer this question Are you currently unemployed and looking for a job?: I choose not to answer this question Are you interested in more education?: I choose not to answer this question Please select the resources that you would like help with: Housing/Nursing Home Currently or been in a relationship where the following occur: I choose not to answer THRIVE Score: 0 AUDIT C Alcohol Use Questionnaire (AUDIT-C) 1. How often do you have a drink containing alcohol?: Never 3. How often do you have six or more drinks on one occasion?: Never Total Score: 0 CHERYL-7 AMB Questionnaire CHERYL-7 Date CHERYL - 7 assessed: 06/08/24 Feeling nervous, anxious, or on edge: 3 = Nearly every day Not being able to stop or control worryin = Nearly every day Worrying too much about different things: 2 = More than half the days Trouble relaxin = More than half the days Being so restless that it is hard to sit still: 1 = Several days Becoming easily annoyed or irritable: 0 = Not at all Feeling afraid as if something awful might happen: 1 = Several days Total CHERYL-7 score (0-4 normal; 5-9 mild; 10-14 moderate; 15-21 severe): 12 Source: Developed by Drs. Phillip Narayanan, Karime Antunze, Tank Merino and colleagues, with an educational manueliot from [employer]. Review of Systems Const All systems reviewed & are unremarkable except as noted in HPI and below ENT Reports no additional complaints Card Reports no additional complaints Resp Reports no additional complaints GI Reports no additional complaints Reports no additional complaints Physical exam (Primary Care) Vital Signs: Last Vital Signs Pulse 68 06/08/24 08:16 BP 126/74 06/08/24 08:16 Pulse Ox 98 06/08/24 08:16 Oxygen Delivery Method Room Air 06/08/24 08:16 BMI result Body Mass Index 32.6 Tobacco/Smoking Status: Tobacco use Status Tobacco use date assessed 06/08/24 06/08/24 08:24 Patient Tobacco Use Status Former Tobacco user (06/08/24 08:24 ) Tobacco use type 06/08/24 08:24 e-Cigarette/Vaping Use Never Used 06/08/24 08:16 PHQ-9: PHQ-9 Score PHQ-9: Total score 0 06/08/24 08:48 Depression Screening Interpretation: Negative Thrive Assessment: Date of Thrive Assessment Date Thrive assessed 06/08/24 06/08/24 08:24 Currently or been in a relationship where the following occur: I choose not to answer Const General: no acute distress HENMT Mouth: Normal oral and palatal mucosa present Neck Neck: Yes supple Resp Effort & Inspection: normal respiratory effort Auscultation: clear to auscultation bilaterally Cardio Rhythm: regular rhythm Heart sounds: S1 normal heart sound present and S2 normal heart sound present GI Inspection: Yes normal to inspection Palpation (GI): Soft to palpation Percussion: Yes normal to percussion Auscultation: normal bowel sounds Assessment and Plan Assessment & Plan (1) Hypothyroid: Code(s): E03.9 - Hypothyroidism, unspecified Plan: CONTROLLED ON LEVOTHYROXINE PATIENT WILL RETURN FOR FASTING BLOOD WORK INCLUDING TSH (2) Bipolar 2 disorder: Comment: Established with Dr. Rodriguez Code(s): F31.81 - Bipolar II disorder Plan: Follow-up with psychiatrist and therapist (3) Chronic post-traumatic stress disorder (PTSD): Code(s): F43.12 - Post-traumatic stress disorder, chronic Plan: Follow-up with psychiatry (4) Non-ST elevation [place] (NSTEMI): Comment: 01/2024, S/P LUIS to proximal Cx 95% stenosis, LAD 65%, ostial RPDA 60-70%, [employer], Echo nl EF, no valvular changes 02/01, profound bradycardia not on beta-merissa Code(s): I21.4 - Non-ST elevation (NSTEMI) myocardial infarction Plan: Continue Brilinta aspirin high dose of statin check lipid profile and follow-up with Cardiology Orders: Orders IRON PROFILE Today E03.9 - Hypothyroidism, unspecified, F31.81 - Bipolar II disorder, F43.12 - Post-traumatic stress disorder, chronic, I25.10 - Atherosclerotic heart disease of [place] coronary artery without angina pectoris Microalbumin, Random (w Creat) Today E03.9 - Hypothyroidism, unspecified, F31.81 - Bipolar II disorder, F43.12 - Post-traumatic stress disorder, chronic, I25.10 - Atherosclerotic heart disease of [place] coronary artery without angina pectoris UA w Microscopic Today E03.9 - Hypothyroidism, unspecified, F31.81 - Bipolar II disorder, F43.12 - Post-traumatic stress disorder, chronic, I25.10 - Atherosclerotic heart disease of [place] coronary artery without angina pectoris Comprehensive [place]. Panel Fast Today E03.9 - Hypothyroidism, unspecified, F31.81 - Bipolar II disorder, F43.12 - Post-traumatic stress disorder, chronic, I25.10 - Atherosclerotic heart disease of [place] coronary artery without angina pectoris Lipid Panel Today E03.9 - Hypothyroidism, unspecified, F31.81 - Bipolar II disorder, F43.12 - Post-traumatic stress disorder, chronic, I25.10 - Atherosclerotic heart disease of [place] coronary artery without angina pectoris TSH reflex Free T4 Today E03.9 - Hypothyroidism, unspecified, F31.81 - Bipolar II disorder, F43.12 - Post-traumatic stress disorder, chronic, I25.10 - Atherosclerotic heart disease of [place] coronary artery without angina pectoris Complete Blood Count Auto Diff Today E03.9 - Hypothyroidism, unspecified, F31.81 - Bipolar II disorder, F43.12 - Post-traumatic stress disorder, chronic, I25.10 - Atherosclerotic heart disease of [place] coronary artery without angina pectoris Medications: New albuterol sulfate 90 mcg/actuation (Ventolin HFA) 2 puffs inhalation Q4H PRN 6.7 grams 4RF dyspnea Coding Level of Care Code Est Pt Level 4 (57805) Diagnoses Hypothyroid E03.9 Bipolar 2 disorder F31.81 Chronic post-traumatic stress disorder (PTSD) F43.12 Non-ST elevation IN (NSTEMI) I21.4
== END 2024-06-08 14:22 | disposition home or self-care (01) ==
PROVIDERS: PCP Nurse Practitioner Primary Care; Visit Provider Internal Medicine
DX: E03.9 Hypothyroidism, unspecified (principal); F31.81 Bipolar II disorder; I25.2 Old myocardial infarction; F43.12 Post-traumatic stress disorder, chronic
CPT/HCPCS: 99214

== ENCOUNTER 2024-06-19 15:04 | Outpatient (AMB) | payer MEDICARE, MEDICAID, SELFPAY ==
--- NOTE | 2024-06-19 15:04 | MHC.OFFWIV ---
Intake Vital Signs 06/19/24 15:05 Height 5 ft 5 in Weight 206 lb BMI 34.3 BP 180/90 H Blood Pressure Location Rt brachial Position Sitting Pulse 64 Pulse Source Pulse Oximeter Temp 98.7 F Temp Source Oral Pulse Oximetry (%) 98 Oxygen Delivery Method Room Air Intake Visit Reasons: EP Ankle swelling Both Intake Note: pt c/o bilateral [place] swelling. Started today Patient Tobacco Use Status: Former Tobacco user (February 21) Allergies adhesive tape [Adhesive Tape] Allergy (Mild, Verified 06/19/24 15:05) BURNING RASH ciprofloxacin [From Cipro] Allergy (Unknown, Verified 06/19/24 15:05) ANAPHYLAXIS Do you need a note to return to daycare/school/sports/work: No HPI HPI Comments History of Present Illness Details Pt is a 63 year old female complaining of bilateral lower extremity swelling that started today. She states she had a recent NSTEMI and has been taking all of her medications, including her blood pressure medication as scheduled. She denies any chest pain, shortness of breath, neck pain, arm pain or shoulder pain. She states she does have some left hip pain that started when she started taking the statin so she was told to start taking Co Q10 which she has been taking and she is wondering if that is causing her leg swelling. She states that she does not believe she has ever had an ultrasound of her heart, she thinks she may have had 1 many years ago because of a heart murmur. [facility] Medical History (Updated 06/19/24 @ 15:37 by Jigna Ronquillo PA-C) Non-ST elevation [place] (NSTEMI) Chronic post-traumatic stress disorder (PTSD) Pneumonia Post traumatic stress disorder (PTSD) Bipolar 2 disorder Asthma Cholecystectomy planned Cellulitis Hypothyroid Anxiety Surgical History Hx of tubal ligation Hx of bladder repair surgery H/O lumpectomy Hx of cholecystectomy Family History Father No problems noted. Mother Hypertension Diabetes History of open heart surgery Social History Housing: Other Alcohol intake: never Patient Tobacco Use Status: Former Tobacco user (February 21) e-Cigarette/Vaping Use: Never Used Substance Use Type: Marijuana service: No Current occupational status: disabled Cognitive needs: No Hearing needs: No Vision needs: No Review of Systems Const All systems reviewed & are unremarkable except as noted in HPI and below Physical Exam Vital Signs: Last Vital Signs Temp 98.7 F 06/19/24 15:05 Pulse 64 06/19/24 15:05 BP 180/90 H 06/19/24 15:05 Pulse Ox 98 06/19/24 15:05 Oxygen Delivery Method Room Air 06/19/24 15:05 BMI result Body Mass Index 34.3 Const General: cooperative, healthy appearing, comfortable, no acute distress and well developed Orientation/consciousness: patient oriented x3 Limitations: no limitations HEENT Head: Yes normal to inspection Eyes General: appearance normal, both eyes and all related structures Neck Neck: Yes normal visual inspection and Yes full ROM Resp Effort & Inspection: normal respiratory effort and able to speak in complete sentences Auscultation: clear to auscultation bilaterally Cardio Rate: regular rate Rhythm: regular rhythm Heart sounds: normal S1 and S2 GI Inspection: Yes normal to inspection Palpation (GI): Soft to palpation and nontender Skin General skin exam: no rashes or lesions noted Neuro General: patient oriented x3 Extrem General: Yes full ROM, Yes capillary refill normal, Yes normal exam except as noted, Yes edema (1+ pitting edema, bilateral lower extremities) and Yes pedal edema Office Procedures EKG [id number], Complete Assessment & Plan Assessment & Plan (1) Hypertensive urgency: Code(s): I16.0 - Hypertensive urgency Plan: Repeat blood pressure with similar, extremely elevated in the 180s-190s systolic. Patient is completely asymptomatic but does have the bilateral lower extremity swelling, EKG done in office showed st depression in V1 and V2, read as septal infact, age undetermined. Called Ambulance for transfer to [facility] to rule out cardiac event. Gave patient 325 mg aspirin in office (2) Acute electrocardiogram changes: Code(s): R94.31 - Abnormal electrocardiogram [ECG] [EKG] Plan see above Orders: Orders AMB Aspirin Adult Dose Today I16.0 - Hypertensive urgency, R94.31 - Abnormal electrocardiogram [ECG] [EKG] Medications: New aspirin 325 mg PO ONCE 1 tab 0RF cardiac issue I16.0 - Hypertensive urgency, R94.31 - Abnormal electrocardiogram [ECG] [EKG] Coding Level of Care Code Est Pt Level 5 (12582) Diagnoses Hypertensive urgency I16.0 Acute electrocardiogram changes R94.31 CPT Codes EKG - CPT: 63297-[id number], Complete ([id number])
[2024-06-19 15:05] VITALS: BP 180/90; PULSE 64; TEMP 37.1; O2SAT 98; BMI 34.3
== END 2024-06-19 15:47 | disposition home or self-care (01) ==
PROVIDERS: PCP Internal Medicine; Visit Provider Physician Assistant
DX: I16.0 Hypertensive urgency (principal); R94.31 Abnormal electrocardiogram [ECG] [EKG]
CPT/HCPCS: 93000; 99215

== ENCOUNTER 2024-07-27 11:39 | Outpatient (AMB) | payer MEDICARE, MEDICAID, SELFPAY ==
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
== END 2024-07-27 13:03 | disposition home or self-care (01) ==
LOC: HO.HOP 11:39
PROVIDERS: PCP Internal Medicine; Visit Provider Psychiatry & Neurology Psychiatry
DX: F43.12 Post-traumatic stress disorder, chronic (principal); F31.81 Bipolar II disorder; I25.10 Atherosclerotic heart disease of native coronary artery without angina pectoris
CPT/HCPCS: 90833; 99213

== ENCOUNTER → 2024-07-27 11:39 | Outpatient (BNVA) | payer MEDICARE, MEDICAID, SELFPAY | PROVIDERS: PCP Internal Medicine; Visit Provider Psychiatry & Neurology Psychiatry | DX: F43.12 Post-traumatic stress disorder, chronic (principal); F31.81 Bipolar II disorder; Z71.89 Other specified counseling | CPT/HCPCS: 99212 ==

== ENCOUNTER 2024-09-18 08:37 | Outpatient (AMB) | payer MEDICARE, MEDICAID, SELFPAY ==
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
[2024-09-18 08:53] VITALS: BP 122/76; PULSE 66; O2SAT 99; BMI 31.4
== END 2024-09-18 09:37 | disposition home or self-care (01) ==
PROVIDERS: PCP Internal Medicine; Visit Provider Physician Assistant
DX: M62.838 Other muscle spasm (principal)

== ENCOUNTER → 2024-09-18 08:37 | Outpatient (BNVA) | payer MEDICARE, MEDICAID, SELFPAY | PROVIDERS: PCP Internal Medicine; Visit Provider Physician Assistant | DX: M62.838 Other muscle spasm (principal) | CPT/HCPCS: 99212 ==

== ENCOUNTER 2024-10-06 10:57 | Outpatient (AMB) | payer MEDICARE, MEDICAID, SELFPAY ==
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
== END 2024-10-06 11:57 | disposition home or self-care (01) ==
LOC: HO.HOP 10:57
PROVIDERS: PCP Internal Medicine; Visit Provider Psychiatry & Neurology Psychiatry
DX: F31.81 Bipolar II disorder (principal); F43.10 Post-traumatic stress disorder, unspecified
CPT/HCPCS: 90833; 99213

== ENCOUNTER → 2024-10-06 10:57 | Outpatient (BNVA) | payer MEDICARE, MEDICAID, SELFPAY | PROVIDERS: PCP Internal Medicine; Visit Provider Psychiatry & Neurology Psychiatry | DX: F43.10 Post-traumatic stress disorder, unspecified (principal); F31.81 Bipolar II disorder; Z71.89 Other specified counseling | CPT/HCPCS: 99212 ==

== ENCOUNTER 2024-11-12 10:29 | Outpatient (AMB) | payer MEDICARE, MEDICAID, SELFPAY ==
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
== END 2024-11-12 11:52 | disposition home or self-care (01) ==
LOC: HO.HOP 10:29
PROVIDERS: PCP Internal Medicine; Visit Provider Psychiatry & Neurology Psychiatry
DX: F31.81 Bipolar II disorder (principal); F43.10 Post-traumatic stress disorder, unspecified; F43.12 Post-traumatic stress disorder, chronic
CPT/HCPCS: 90833; 99213

== ENCOUNTER → 2024-11-12 10:29 | Outpatient (BNVA) | payer MEDICARE, MEDICAID, SELFPAY | PROVIDERS: PCP Internal Medicine; Visit Provider Psychiatry & Neurology Psychiatry | DX: F43.12 Post-traumatic stress disorder, chronic (principal); F31.81 Bipolar II disorder | CPT/HCPCS: 99212 ==

== ENCOUNTER 2025-01-14 10:46 | Outpatient (AMB) | payer MEDICARE, MEDICAID, SELFPAY ==
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
--- OUTSIDE RECORDS SUMMARY | 2025-01-14 12:58 | XMS_ITS | Clinical Summary ---
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 specimen / Unknown Venipuncture / Unknown 11/29/2024 11:45 AM EST 11/29/2024 12:03 PM EST us Leia LIVE LAB BLOOD ORDERABLES Final Re sult [facility] [address] [place] [address], * ECG 12 lead (11/29/2024 10:53 AM EST) Ventricular Rate ECG 54 BPM GEMUSE Atrial Rate 54 BPM GEMUSE P-R Interval 166 ms GEMUSE QRS Duration 84 ms GEMUSE Q-T Interval 436 ms GEMUSE QTc 413 ms GEMUSE P Wave [place] 6 degrees GEMUSE R [place] 9 degrees GEMUSE T [place] 39 degrees GEMUSE ECG Interpretation Sinus bradycardia Otherwise normal ECG When compared with ECG of 04-AUG-2024 14:59, No significant change was found Confirmed by Valerie RIVERA JAMES ([id number]) on 11/30/2024 6:51:26 AM GEMUSE 11/29/2024 10:5 3 AM EST 11/30/2024 6:51 AM EST Deirdre Hendricks Eliezer Keon DO ECG ORDERABLES Final Res ult GEMUSE * ECG-Annotated (11/29/2024) Result [facility] Provider Onbase ECG ORDERABLES Final Result * Hemoglobin A1c (05/16/2023) Pathologist [facility] Hemoglobin A1C 6.0 <=6.5 % Blood Venous blood specimen / Unknown Result [facility] Provider LAB BLOOD ORDERABLES Sofie l Result * (ABNORMAL) Lipid panel (05/16/2023) [facility] LDL/HDL Ratio 5(A) 0 - 4 Triglycerides 143 0 - 150 mg/dL Cholesterol 263(A) 0 - 200 mg/dL HDL 57 >=40 mg/dL LDL Cholesterol 178(A) 0 - 100 mg/dL Blood Venous blood specimen / Unknown Result [facility] Historical Provider LAB BLOOD ORDERABLES Sofie l Result * Urine Albumin Creatinine Ratio (01/11/2020) Pathologist [facility] Urine Albumin Creatinine Ratio Abstracted Result [facility] Historical Provider HEALTH MAINTENANCE Final Result * Colonoscopy (06/11/2017) Pathologist [facility] Colonoscopy No interpretation , Abstracted Anatomical Region Laterality Modality Other Result [facility] Historical Provider HEALTH MAINTENANCE Final Result * Cervical Cancer Screening: HPV (08/07/2016) [facility] Cervical Cancer Screening: HPV Negative, Abstracted Historical Provider HEALTH MAINTENANCE Final Result * HIV Screening (02/14/2015) [facility] HIV Screening Abstracted Historical Provider HEALTH MAINTENANCE Final Result * Hepatitis C Screening (07/28/2014) [facility] Hepatitis C Screening Abstracted Historical Provider HEALTH MAINTENANCE Final Result from Last 3 Months or Most Recently Relevant to Health Maintenance Insurance MEDICA[place] - [place] MEDICARE Care Teams Canal Superintendent Relationship Specialty Start Date End Date Ania Hay MD [address] [place] [address] PCP - General 04/26/23
== END 2025-01-14 12:44 | disposition home or self-care (01) ==
LOC: HO.HOP 10:46
PROVIDERS: PCP Internal Medicine; Visit Provider Psychiatry & Neurology Psychiatry
DX: F31.81 Bipolar II disorder (principal); F43.12 Post-traumatic stress disorder, chronic
CPT/HCPCS: 90833; 99213

== ENCOUNTER → 2025-01-14 10:46 | Outpatient (BNVA) | payer MEDICARE, MEDICAID, SELFPAY | PROVIDERS: PCP Internal Medicine; Visit Provider Psychiatry & Neurology Psychiatry | DX: F31.81 Bipolar II disorder (principal); F43.12 Post-traumatic stress disorder, chronic; Z71.89 Other specified counseling | CPT/HCPCS: 99212 ==

== ENCOUNTER 2025-02-08 08:06 | Outpatient (AMB) | payer MEDICARE, MEDICAID, SELFPAY ==
--- NOTE | 2025-02-08 08:18 | AM.OFFWIN_ITS ---
Intake Vital Signs 02/08/25 08:19 Weight 189 lb BP 140/90 H Blood Pressure Location Lt brachial Position Sitting Pulse 61 Pulse Source Pulse Oximeter Pulse Oximetry (%) 98 Oxygen Delivery Method Room Air Intake Visit Reasons: EP-neck pain,dizziness Intake Note: Patient here for neck pain and dizziness that has been present for a while but went away and recently came back. Patient Tobacco Use Status: Former Tobacco user (February 21) Allergies adhesive tape [Adhesive Tape] Allergy (Mild, Verified 02/08/25 08:18) BURNING RASH ciprofloxacin [From Cipro] Allergy (Unknown, Verified 02/08/25 08:18) ANAPHYLAXIS Do you need a note to return to daycare/school/sports/work: No HPI HPI Comments History of Present Illness Details History of Present Illness The patient is a 64-year-old female presenting with dizziness and left sided neck pain. - Patient states that she fell on because she was dizzy and she injured her neck at that time and these symptoms have been present since then. She did go to [facility] on that date and had a head CT without contrast and was told it was normal. We do not have those records. - The dizziness is reported to occur pre dominantly in the mornings and has been ongoing for six weeks, described as a sense of imbalance without a spinning sensation. - Dizziness accompanies nausea, with a s pontaneous and unpredictable onset and resolution with no intervention - Known history of coronary artery disea se treated with stenting and historical myocardial infarction was noted, and she completed a stress test with normal findings despite reported blood flow turbulence. - she tells me she was taking off of he r Plavix last week by her bulk sugar handler. - Treatment with 25mg meclizine exacerba colleen her dizziness, contraindicating its use, and she has experienced syncope linked to bradycardia treated through cardiovascular consults. Physical Exam General: Cooperative, healthy appearing, comfortable, no acute distress and well developed Orientation: Patient oriented x3 Limitations: No limitations Head: Normal to inspection Ears: Hearing grossly normal bilaterally, no ear pain Nose: Normal External nose present Face and sinus: Normal facial exam, no sinus pain Eyes: Appearance normal, both eyes and all related structures, PERRLA, EOM intact, no nystagmus Neck: Normal visual inspection, patient reports pain from the back of the neck down Respiratory: Normal respiratory effort and able to speak in complete sentences. Skin: No rashes or lesions noted Neuro: Patient oriented x3, gait normal Extremities: Normal to inspection COUNTS INCLUDE 234 BEDS AT THE [facility] Medical History (Updated 02/08/25 @ 08:31 by Jigna Ronquillo PA-C) Non-ST elevation CA (NSTEMI) Chronic post-traumatic stress disorder (PTSD) Pneumonia Post traumatic stress disorder (PTSD) Bipolar 2 disorder Asthma Cholecystectomy planned Cellulitis Hypothyroid Anxiety Surgical History Hx of tubal ligation Hx of bladder repair surgery H/O lumpectomy Hx of cholecystectomy Family History Father No problems noted. Mother Hypertension Diabetes History of open heart surgery Social History Housing: Other Alcohol intake: never Patient Tobacco Use Status: Former Tobacco user (February 21) e-Cigarette/Vaping Use: Never Used Substance Use Type: Marijuana service: No Current occupational status: disabled Cognitive needs: No Hearing needs: No Vision needs: No Review of Systems Const All systems reviewed & are unremarkable except as noted in HPI and below Physical Exam Vital Signs: Last Vital Signs Pulse 61 02/08/25 08:19 BP 140/90 H 02/08/25 08:19 Pulse Ox 98 02/08/25 08:19 Oxygen Delivery Method Room Air 02/08/25 08:19 Assessment & Plan Assessment & Plan (1) Dizzy spells: Code(s): R42 - Dizziness and giddiness Plan: Concern for vertebral artery dissection 6 weeks ago when she fell as she has had left-sided neck pain, dizzy spells and nausea after falling and hitting the back of her neck. The CT which Tena did, she reports did not have contrast, however we do not have the records. she was also on Plavix during this time but was taken off of this medication last week by her bulk sugar handler. I have messaged her PCP to see if she wants her to go to the ED versus outpatient CTA head and neck to evaluate. We will call her to let her know what her PCP wants her to do. In the meanwhile, if this workup is negative, we will try smaller dose of meclezine 12.5 mg to manage her dizziness while emphasizing proper hydration. I recommended maintaining regular follow-up with her bulk sugar handler and primary care physician, Dr. Carlos, for any persistent symptoms and potential vestibular rehabilitation. Follow-up is suggested if symptoms of dizziness or syncope do not resolve, given her complex medical history. Patient was informed and verbally consented to the use of an ambient scribe for clinic note documentation during this visit. Medications: New meclizine 12.5 mg PO BID-QID PRN 10 tabs 0RF dizziness albuterol sulfate 90 mcg/actuation (Ventolin HFA) 2 puffs inhalation Q4-6H PRN 8.5 grams 0RF shortness of breath or wheezing Coding Level of Care Code Est Pt Level 4 (82649) Diagnoses Dizzy spells R42
[2025-02-08 08:19] VITALS: BP 140/90; PULSE 61; O2SAT 98
== END 2025-02-08 09:21 | disposition home or self-care (01) ==
PROVIDERS: PCP Internal Medicine; Visit Provider Physician Assistant
DX: R42 Dizziness and giddiness (principal)

== ENCOUNTER → 2025-02-08 08:06 | Outpatient (BNVA) | payer MEDICARE, MEDICAID, SELFPAY | PROVIDERS: PCP Internal Medicine; Visit Provider Physician Assistant | DX: R42 Dizziness and giddiness (principal) | CPT/HCPCS: 99212 ==

== ENCOUNTER 2025-02-10 13:38 | Outpatient (AMB) | payer MEDICARE, MEDICAID, SELFPAY ==
[2025-02-10 14:17] VITALS: BP 136/66; PULSE 62; O2SAT 99; BMI 29.1
--- NOTE | 2025-02-10 14:17 | MHC.PC.OV ---
Vital Signs 02/10/25 14:17 Height 5 ft 5 in Weight 175 lb BMI 29.1 BP 136/66 Blood Pressure Location Rt brachial Position Sitting Pulse 62 Pulse Source Pulse Oximeter Pulse Oximetry (%) 99 Oxygen Delivery Method Room Air Intake Visit Reasons: Follow up after walk in visit. Intake Note: Pt is here today for a follow up visit after being seen in walk in. Pt states that she has been having pain in her neck down her spinal cord and dizziness is getting worst. Allergies adhesive tape [Adhesive Tape] Allergy (Mild, Verified 02/08/25 08:18) BURNING RASH ciprofloxacin [From Cipro] Allergy (Unknown, Verified 02/08/25 08:18) ANAPHYLAXIS Medication List - Last Reconciled 02/10/25 by Hien Carlos MD albuterol sulfate 90 mcg/actuation (Ventolin HFA) 2 puffs inhalation Q4-6H PRN amlodipine 5 mg PO DAILY aripiprazole 2 mg PO DAILY PRN aspirin 81 mg PO DAILY blood pressure monitor (Blood Pressure Kit) As directed clonazepam 0.5 - 1 mg (0.5 - 1 x 1 mg) PO TID coenzyme Q10 10 mg PO DAILY epinephrine 0.3 mL IM ONCE PRN gabapentin 300 mg PO BEDTIME lamotrigine 225 mg (1.5 x 150 mg) PO DAILY 30 days levothyroxine (Synthroid) 137 mcg PO DAILY meclizine 12.5 mg PO BID-QID PRN miscellaneous medical supply (Blood Pressure Cuff) As directed ondansetron 4 mg PO Q8H PRN rosuvastatin 40 mg PO DAILY ticagrelor (Brilinta) 90 mg PO BID Tobacco use date assessed: 02/10/25 Dental Screening Dental Screen Date: 02/10/25 Did you have a dental visit in the last 12 months?: No Did you have a dental problem in the last 6 months where you did not have access to dental care?: No Was dental information given to patient?: Patient declined HPI Follow up after walk in visit. HPI Details Pt presents complaining of persistent neck pain and stiffness and dizziness after head injury in the end of November. She was admitted to [facility] and then [facility] with extensive negative neuro workup: CT and CTA of the brain and cervical spine negative for brain bleed, no proximal occlusion or stenosis in major arteries of the neck and head, chronic degenerative changes in C spine. Patient denies any weakness or numbness in extremities, change in balance or vision. She has been taking her regular medications for CAD, hypertension hyperlipidemia hypothyroidism, anxiety and depression. [facility] Medical History Non-ST elevation SC (NSTEMI) Chronic post-traumatic stress disorder (PTSD) Pneumonia Post traumatic stress disorder (PTSD) Bipolar 2 disorder Asthma Cholecystectomy planned Cellulitis Hypothyroid Anxiety Surgical History Hx of tubal ligation Hx of bladder repair surgery H/O lumpectomy Hx of cholecystectomy Family History Father No problems noted. Mother Hypertension Diabetes History of open heart surgery Social History Housing: Other Alcohol intake: never Patient Tobacco Use Status: Former Tobacco user (February 21) e-Cigarette/Vaping Use: Never Used Substance Use Type: Marijuana service: No Current occupational status: disabled Cognitive needs: No Hearing needs: No Vision needs: No Questionnaire PHQ-9 Over the last 2 weeks, how often have you been bothered by any of the following problems? 1. Little interest or pleasure in doing things: not at all 2. Feeling down, depressed, or hopeless: not at all 3. Trouble falling or staying asleep, or sleeping too much: more than half the days 4. Feeling tired or having little energy: not at all 5. Poor appetite or overeating: not at all 6. Feeling bad about yourself - or that you are a failure or have let yourself or your family down: not at all 7. Trouble concentrating on things, such as reading the newspaper or watching television: not at all 8. Moving or speaking so slowly that other people could have noticed. Or the opposite - being so fidgety or restless that you have been moving around a lot more than usual: not at all 9. Thoughts that you would be better off or of hurting yourself in some way: not at all Total score: 2 Depression Screening Interpretation: Negative Depression Screening Done: Yes 13832 - PHQ-9 Billing: Yes Source: Developed by Drs. Phillip Narayanan, Karime Antunez, Tank Merino and colleagues, with an educational manuelito from [employer]. Thrive Questionnaire Date Thrive assessed: 02/10/25 I am a: Patient What is your living situation today?: I have a steady place to live Within the past 12 months, did the food you bought not last and you didn't have the money to get more?: Never true Within the past 12 months, did you worry whether your food would run out before you got money to buy more?: Never true Do you have trouble paying for medicines?: No Do you have trouble getting transportation to medical appointments?: No Do you have trouble paying your heating and electricity bill?: No Do you have trouble taking care of your child, family member or friend?: No Do you have trouble with day-to-day activities such as bathing, preparing meals, shopping, managing finances, etc.?: No Are you currently unemployed and looking for a job?: No Are you interested in more education?: No Please select the resources that you would like help with: None THRIVE Score: 0 AUDIT C Alcohol Use Questionnaire (AUDIT-C) 1. How often do you have a drink containing alcohol?: Never 3. How often do you have six or more drinks on one occasion?: Never Total Score: 0 CHERYL-7 AMB Questionnaire CHERYL-7 Date CHERYL - 7 assessed: 02/10/25 Feeling nervous, anxious, or on edge: 0 = Not at all Not being able to stop or control worryin = Not at all Worrying too much about different things: 0 = Not at all Trouble relaxin = Not at all Being so restless that it is hard to sit still: 0 = Not at all Becoming easily annoyed or irritable: 0 = Not at all Feeling afraid as if something awful might happen: 0 = Not at all Total CHERYL-7 score (0-4 normal; 5-9 mild; 10-14 moderate; 15-21 severe): 0 Source: Developed by Drs. Phillip Narayanan, Karime Antunez, Tank Merino and colleagues, with an educational manuelito from [employer]. CHERYL-7 Assessment Billing CHERYL-7 Assessment Tool: CHERYL-7 Assessment 81011 Review of Systems Const All systems reviewed & are unremarkable except as noted in HPI and below ENT Reports no additional complaints Card Reports no additional complaints Resp Reports no additional complaints GI Reports no additional complaints Reports no additional complaints Physical exam (Primary Care) Vital Signs: Last Vital Signs Pulse 62 02/10/25 14:17 BP 136/66 02/10/25 14:17 Pulse Ox 99 02/10/25 14:17 Oxygen Delivery Method Room Air 02/10/25 14:17 BMI result Body Mass Index 29.1 Tobacco/Smoking Status: Tobacco use Status Tobacco use date assessed 02/10/25 02/10/25 14:51 Patient Tobacco Use Status Former Tobacco user (02/10/25 14:20 13th) Tobacco use type 06/16/24 13:35 e-Cigarette/Vaping Use Never Used 02/10/25 14:20 PHQ-9: PHQ-9 Score PHQ-9: Total score 2 02/10/25 14:51 Depression Screening Interpretation: Negative Thrive Assessment: Date of Thrive Assessment Date Thrive assessed 02/10/25 02/10/25 14:20 Const General: no acute distress HENMT Head: Yes normal to inspection Ears: TM's normal bilaterally Eyes General: appearance normal, both eyes and all related structures Neck Other: Paraspinal reproducible tenderness in lower cervical and upper thoracic region Neck: Yes no lymphadenopathy and Yes supple Resp Effort & Inspection: normal respiratory effort Auscultation: clear to auscultation bilaterally Cardio Rhythm: regular rhythm Heart sounds: S1 normal heart sound present and S2 normal heart sound present GI Inspection: Yes normal to inspection Palpation (GI): Soft to palpation Neuro Cranial nerves: Yes CN's II-XII intact bilaterally Gait exam (Neuro): Normal gait present Motor exam (neuro): 5/5 motor strength present throughout Romberg Test: Negative Extrem General: Yes no clubbing, cyanosis or edema Coding Level of Care Code Est Pt Level 4 (30018) Diagnoses Whiplash injury S13.4XXA Non-ST elevation SC (NSTEMI) I21.4 Bipolar 2 disorder F31.81 Additional Codes CHERYL-7 Assessment Billing - CHERYL-7 Assessment Tool: CHERYL-7 Assessment 25971 ([id number]) PHQ-9 - 60934 - PHQ-9 Billing: Yes ([id number]) Assessment & Plan Assessment & Plan (1) Whiplash injury: Comment: CT brain/cervical 12/2024 [facility], DJD multilevel Code(s): S13.4XXA - Sprain of ligaments of cervical spine, initial encounter Category: Medical Plan: Referred to physical therapy. Patient was advised to restart gabapentin she will follow-up in 1 month (2) Non-ST elevation SC (NSTEMI): Comment: 01/2024, S/P LUIS to proximal Cx 95% stenosis, LAD 65%, ostial RPDA 60-70%, [facility], Echo nl EF, no valvular changes 02/01, profound bradycardia not on beta-merissa Code(s): I21.4 - Non-ST elevation (NSTEMI) myocardial infarction Category: Medical Plan: Continue current medications follow-up with Cardiology at [facility] (3) Bipolar 2 disorder: Comment: Established with Dr. Rodriguez Code(s): F31.81 - Bipolar II disorder Category: Medical Plan: Follow-up with the psychiatrist continue current medications Orders: Orders PT Evaluation and Treatment Today S13.4XXA - Sprain of ligaments of cervical spine, initial encounter
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
== END 2025-02-10 15:27 | disposition home or self-care (01) ==
LOC: HO.HMCC 13:39
PROVIDERS: PCP Internal Medicine; Visit Provider Internal Medicine
DX: S13.4XXA Sprain of ligaments of cervical spine, initial encounter (principal); I25.2 Old myocardial infarction; F31.81 Bipolar II disorder

== ENCOUNTER → 2025-02-10 13:38 | Outpatient (BNVA) | payer MEDICARE, MEDICAID, SELFPAY | PROVIDERS: PCP Internal Medicine; Visit Provider Internal Medicine | DX: F31.81 Bipolar II disorder (principal); I21.4 Non-ST elevation (NSTEMI) myocardial infarction; S13.4XXD Sprain of ligaments of cervical spine, subsequent encounter | CPT/HCPCS: 96127; 99212 ==

== ENCOUNTER 2025-02-23 08:05 | Outpatient (AMB) | payer MEDICARE, MEDICAID, SELFPAY ==
--- NOTE | 2025-02-23 08:07 | AM.OFFWIN_ITS ---
Intake Vital Signs 02/23/25 08:14 Height 5 ft 5 in Weight 176 lb BMI 29.3 BP 132/80 Blood Pressure Location Rt brachial Position Sitting Pulse 85 Pulse Source Pulse Oximeter Pulse Oximetry (%) 98 Oxygen Delivery Method Room Air Intake Visit Reasons: EP Neck concerns Intake Note: Patient here for neck pain, thinks she made neck issues worse by stretching and exercising. Patient Tobacco Use Status: Former Tobacco user (February 21) Allergies adhesive tape [Adhesive Tape] Allergy (Mild, Verified 02/23/25 08:15) BURNING RASH ciprofloxacin [From Cipro] Allergy (Unknown, Verified 02/23/25 08:15) ANAPHYLAXIS Do you need a note to return to daycare/school/sports/work: No HPI HPI Comments History of Present Illness Details This is a right-hand dominant female with a past medical history bipolar disorder, coronary artery disease, hypertension, hypothyroidism and hyperlipidemia presenting for evaluation of right-sided neck pain that radiates down her right arm. Patient states that the pain has been ongoing since December 09 when she fell down striking the right side of her neck. Patient has had subsequent dizzy spells that are intermittent. Patient saw her primary care provider and was prescribed physical therapy for this issue however she has not yet scheduled an intake. Patient was seen at [facility] in December and had negative CT/CTA imaging of the brain. Patient has been taking ibuprofen and using Icy Hot without relief of her discomfort. [facility] Medical History Non-ST elevation [place] (NSTEMI) Chronic post-traumatic stress disorder (PTSD) Pneumonia Post traumatic stress disorder (PTSD) Bipolar 2 disorder Asthma Cholecystectomy planned Cellulitis Hypothyroid Anxiety Surgical History Hx of tubal ligation Hx of bladder repair surgery H/O lumpectomy Hx of cholecystectomy Family History Father No problems noted. Mother Hypertension Diabetes History of open heart surgery Social History Housing: Other Alcohol intake: never Patient Tobacco Use Status: Former Tobacco user (February 21) e-Cigarette/Vaping Use: Never Used Substance Use Type: Marijuana service: No Current occupational status: disabled Cognitive needs: No Hearing needs: No Vision needs: No Review of Systems Const All systems reviewed & are unremarkable except as noted in HPI and below Denies chills, Denies fatigue, Denies fever(s) and Denies headache(s) Eyes Reports no additional complaints ENT Reports no additional complaints, Denies headache(s) and Reports neck pain Card Reports no additional complaints Resp Reports no additional complaints GI Reports no additional complaints Reports no additional complaints Musc Reports no additional complaints, Reports neck pain and Reports radiating pain into limb (RUE) Skin/Breast Reports system reviewed and no additional complaints, except as documented Neuro Reports no additional complaints and Denies headache(s) Psych Reports no additional complaints Endo Reports no additional complaints and Denies fatigue Ian/Lymph Reports no additional complaints Aller/Immun Reports no additional complaints Physical Exam Const General: healthy appearing, comfortable, no acute distress, well developed, alert, awake and Physically active; No acute distress Nutritional Appearance: well nourished Orientation/consciousness: patient oriented x3 Limitations: no limitations Neck Neck: No full ROM (limited ROM with right rotation of the C.spine), Yes trachea midline and No midline deformity Back/Spine/Pelvis Cervical Spine: normal cervical lordosis, No cervical ROM normal, cervical muscular tenderness (right), pain with cervical ROM, No Cervical spine tenderness and other (pain radiates to RUE with palpation of the right c.spine musculature) Skin General skin exam: no rashes or lesions noted Neuro General: patient oriented x3 Extrem Other: Prevention Rn strength equal bilaterally, 5/5 strength upper extremities bilaterally Psych Appearance: grossly normal Mental Status: mental status grossly normal Insight: Good insight present (Psych) Judgement: Good judgement present (Psych) Assessment & Plan Assessment & Plan (1) Cervical radicular pain: Comment: Patient has not yet scheduled her intake for physical therapy and she is encouraged to do so. Patient will be discharged home with prednisone and methocarbamol. Code(s): M54.12 - Radiculopathy, cervical region Plan: Physical therapy, prednisone taper, methocarbamol q.8 hours. Patient to follow up with primary care provider following course of physical therapy. Medications: New prednisone 20 mg orally 60mg x 3 days, 40mg x 3 days, 20mg x 3 days; 18 tabs 0RF methocarbamol 750 mg PO Q8H PRN 20 tabs 0RF pain Coding Level of Care Code Est Pt Level 3 (21718) Diagnoses Cervical radicular pain M54.12 Time Spent (min) 20
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
[2025-02-23 08:14] VITALS: BP 132/80; PULSE 85; O2SAT 98; BMI 29.3
== END 2025-02-23 09:04 | disposition home or self-care (01) ==
PROVIDERS: PCP Internal Medicine; Visit Provider Physician Assistant
DX: M54.12 Radiculopathy, cervical region (principal)

== ENCOUNTER → 2025-02-23 08:05 | Outpatient (BNVA) | payer MEDICARE, MEDICAID, SELFPAY | PROVIDERS: PCP Internal Medicine; Visit Provider Physician Assistant | DX: M54.12 Radiculopathy, cervical region (principal) | CPT/HCPCS: 99212 ==

== ENCOUNTER 2025-03-08 05:49 | Outpatient (RCR) | payer MEDICARE, MEDICAID, SELFPAY ==
--- NOTE | 2025-03-08 06:50 | MHC.PT.EP ---
[facility] [place] Office [place] Office [place] Office [address] Stephanie Mac [address] [phone] F: [phone] F: [phone] F: [phone] F: [phone] Physical Therapy Plan of Care Date of Evaluation: 03/08/25 Date of Surgery: n/a Diagnosis: sprain of ligaments of cervical spine Assessment: Patient is a 64 year old female presenting to PT with complaints of pain in her neck. Pt reports onset of pain began November 2024 due to falling and hitting her neck. She presents today with impairments in pain, ROM, posture, shoulder strength. Pt's current occupation is disabled, with baseline physical activities including reaching, lifting, ADLs, sleeping. Pt expresses alf goal of reducing pain, and is motivated to work towards this in PT. Clinical presentation today is most consistent with signs and sx associated with neck pain and pt will benefit from skilled PT 2 week x 4 weeks to address the following problems and impairments noted upon evaluation: pain, ROM, posture, shoulder strength. These problems limit the patient with the following functional activities: reaching, lifting, ADLs, sleeping. The prescribed treatment plan of care is medically necessary. Co-morbidities of hx [place], PTSD, bipolar, anxiety were identified and taken into considerations of plan of care. Pt was educated on HEP, role of PT, prognosis, POC. Frequency and Duration: The patient will be seen 2 x week x 4 weeks Short Term Goals: Pt will demonstrate ability to move through available cervical ROM with min to no pain in 2 weeks. Pt will demonstrate improved R shoulder ROM to equal B in 2 weeks. Pt will demonstrate improved R shoulder MMT strength to at least 4-/5 in 2 weeks. [employer] Goals: Pt will demonstrate improved NDI score by 10% in 4 weeks for improved functional mobility. Pt will demonstrate ability to reach and lift with min to no pain in 4 weeks for return to PLOF. Pt will demonstrate ability to complete ADLs with min to no pain in 4 weeks for return to PLOF. Treatment Plan: Modalities to reduce pain, spasms and effusion. Manual therapy to restore motion and function. Therapeutic exercise to improve strength and flexibility. Neuromuscular re-education for posture and balance. Therapeutic activities to return to functional activities of daily living. Electronically signed by: Nunu Parr, PT, DPT, ATC Please sign and return to therapist. Thank you for your referral.
--- NOTE | 2025-03-15 07:17 | MHC.PT.DC ---
[facility] [place] Office [place] Office [place] Office [address] [phone] F: [phone] F: [phone] F: [phone] F: [phone] Physical Therapy Discharge Report Diagnosis: sprain of ligaments of cervical spine Date of Surgery: n/a Date of Evaluation: 03/08/25 Date of Discharge: 03/15/25 Treatments to Date: 1 Cancellations to Date: 0 No Shows to Date: 2 Discharge Status: Visit Non-compliance Discharge Summary: Pt has failed to comply with [facility] attendance policy and no showed 2 appointments. Pt to be d/c policy. Electronically signed by: Nunu Parr, PT, DPT, ATC Please sign and return to therapist. Thank you for your referral.
== END 2025-03-15 07:17 | disposition home or self-care (01) ==
LOC: HO.PTCHIC 05:49
PROVIDERS: PCP Internal Medicine; Visit Provider Internal Medicine
DX: S13.4XXD Sprain of ligaments of cervical spine, subsequent encounter (principal)
CPT/HCPCS: 97110; 97162

== ENCOUNTER 2025-03-22 11:29 | Outpatient (AMB) | payer MEDICARE, MEDICAID, SELFPAY ==
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
== END 2025-03-22 13:51 | disposition home or self-care (01) ==
LOC: HO.HOP 11:29
PROVIDERS: PCP Internal Medicine; Visit Provider Psychiatry & Neurology Psychiatry
DX: F31.81 Bipolar II disorder (principal); F43.12 Post-traumatic stress disorder, chronic
CPT/HCPCS: 90833; 99213

== ENCOUNTER → 2025-03-22 11:29 | Outpatient (BNVA) | payer MEDICARE, MEDICAID, SELFPAY | PROVIDERS: PCP Internal Medicine; Visit Provider Psychiatry & Neurology Psychiatry | DX: F31.81 Bipolar II disorder (principal); F43.12 Post-traumatic stress disorder, chronic | CPT/HCPCS: 99212 ==

== ENCOUNTER 2025-04-26 11:04 | Outpatient (REF) | payer MEDICARE, MEDICAID, SELFPAY ==
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
[2025-04-26 13:21] LABS: Creatinine Urine 41.35 mg/dL; Microalbum/Creatinine Ratio Ur 307.1 ug/mg cr (<30)
[2025-04-26 13:25] LABS: MANUAL DIFF FLAG NO
[2025-04-26 13:32] LABS: Basophils Absolute Auto 0.1 X10*3/uL (0.0-0.2); Basophils Percent Auto 0.7 % (0-2); Eosinophils Absolute Auto 0.2 X10*3/uL (0.0-0.4); Eosinophils Percent Auto 2.1 % (0-4); Hematocrit 44.7 % (37.0-47.0); Hemoglobin 14.5 g/dl (12.0-16.0); Imm Gran Abs Auto 0.02 X10*3/uL (0.00-0.03); Imm Gran Pct Auto 0.2 % (0.0-0.4); Lymphocytes Absolute Auto 2.7 X10*3/uL (1.2-4.9); Lymphocytes Percent Auto 32.6 % (20-40); Mean Corpuscular HGB Conc 32.4 g/dl (31.0-35.0); Mean Corpuscular Hemoglobin 28.9 pg (27.0-33.0); Mean Corpuscular Volume 89.2 fL (80.0-98.0); Mean Platelet Volume 10.6 fL (9.4-12.3); Monocytes Absolute Auto 0.7 X10*3/uL (0.1-1.2); Monocytes Percent Auto 8.7 % (2-11); Neutrophils Absolute Auto 4.6 x10*3/uL (2.0-8.3); Neutrophils Percent Auto 55.7 % (45-73); Platelet Count 229 X10*3/uL (160-400); Red Blood Count 5.01 X10*6/uL (4.20-5.50); Red Cell Distribution Width 12.2 % (11.0-16.0); White Blood Count 8.2 X10*3/uL (4.8-10.8)
[2025-04-26 13:34] LABS: Appearance Urine Turbid; Color Urine Yellow; Glucose Urine UA Negative (Negative); Leukocyte Esterase Urine Negative (Negative); Nitrite Urine Negative (Negative); PH 7.5 (5.0-9.0); Specific Gravity - Urine 1.015 (1.005-1.025); UMIC TRIGGER UA YES; Urine Blood Negative (Negative); Urine Ketones Negative (Negative); Urine Protein 30 (1+) mg/dL (Neg-Trace)
[2025-04-26 13:39] LABS: Bacteria Urine None Seen (None Seen); Hyaline Casts Urine 0-2 /LPF (0-2); RBC Urine 0-2 /HPF (0-2); Squamous Epithelial Cell Urine 0-2 /HPF (0-2); WBC Urine 0-5 /HPF (0-5)
[2025-04-26 14:02] LABS: Iron 84 mcg/dL (30-160); Percent Iron Saturation 30 % (15-50); TSH reflex Free T4 0.37 uIU/mL (0.32-4.0); Total Iron Binding Capacity 284 mcg/dL (228-428); Unsaturated Iron Binding 200 ug/dL
== END 2025-04-26 11:05 | disposition home or self-care (01) ==
LOC: HO.HMGCLDS 11:04
PROVIDERS: PCP Internal Medicine; Visit Provider Internal Medicine
DX: I25.10 Atherosclerotic heart disease of native coronary artery without angina pectoris (principal); E03.9 Hypothyroidism, unspecified; F43.12 Post-traumatic stress disorder, chronic; F31.81 Bipolar II disorder
CPT/HCPCS: 36415; 81001; 82043; 82570; 83540; 84443; 85025

== ENCOUNTER 2025-05-06 11:37 | Outpatient (AMB) | payer MEDICARE, MEDICAID, SELFPAY ==
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
== END 2025-05-06 12:34 | disposition home or self-care (01) ==
LOC: HO.HOP 11:37
PROVIDERS: PCP Internal Medicine; Visit Provider Psychiatry & Neurology Psychiatry
DX: F31.81 Bipolar II disorder (principal); F43.12 Post-traumatic stress disorder, chronic
CPT/HCPCS: 90833; 99213

== ENCOUNTER → 2025-05-06 11:37 | Outpatient (BNVA) | payer MEDICARE, MEDICAID, SELFPAY | PROVIDERS: PCP Internal Medicine; Visit Provider Psychiatry & Neurology Psychiatry | DX: F31.81 Bipolar II disorder (principal); F43.12 Post-traumatic stress disorder, chronic | CPT/HCPCS: 99212 ==

== ENCOUNTER 2025-06-29 09:47 | Outpatient (AMB) | payer MEDICARE, MEDICAID, SELFPAY ==
[2025-06-29 10:01] VITALS: BP 132/60; PULSE 70; TEMP 37.3; O2SAT 97; BMI 27.3
--- NOTE | 2025-06-29 10:01 | AM.OFFWIN_ITS ---
Intake Vital Signs 06/29/25 10:01 Height 5 ft 5 in Weight 164 lb BMI 27.3 BP 132/60 Blood Pressure Location Lt brachial Position Sitting Pulse 70 Pulse Source Pulse Oximeter Temp 99.1 F Temp Source Oral Pulse Oximetry (%) 97 Oxygen Delivery Method Room Air Intake Visit Reasons: EP Tick bite? Fever, bone pain, sob Intake Note: patient presents with chest pressure, SOB, fever at home, bone aches especially left lower back- s/s after a tick bite left upper arm about a month ago Patient Tobacco Use Status: Former Tobacco user Allergies adhesive tape (Adhesive Tape) Allergy (Mild, Verified 06/29/25 10:13) BURNING RASH ciprofloxacin (From Cipro) Allergy (Unknown, Verified 06/29/25 10:13) ANAPHYLAXIS losartan Adverse Reaction (Mild, Verified 06/29/25 10:19) Dizziness Medication List - Last Reconciled 06/29/25 by Jigna Ronquillo PA-C albuterol sulfate 90 mcg/actuation (Ventolin HFA) 2 puffs inhalation Q4-6H PRN amlodipine 5 mg PO DAILY aripiprazole 2 mg PO DAILY PRN aspirin 81 mg PO DAILY blood pressure monitor (Blood Pressure Kit) As directed clonazepam 2.5 mg PO ONCE coenzyme Q10 10 mg PO DAILY epinephrine 0.3 mL IM ONCE PRN gabapentin 100 mg PO TID PRN lamotrigine (Lamictal) 200 mg PO DAILY levothyroxine (Synthroid) 137 mcg PO DAILY miscellaneous medical supply (Blood Pressure Cuff) As directed rosuvastatin 40 mg PO DAILY Do you need a note to return to daycare/school/sports/work: No HPI HPI Comments History of Present Illness Details History of Present Illness - The patient is a 64-year-old female pr esenting with concerns of a possible Lyme disease infection and associated joint pain. - The patient reports a deer tick bite a pproximately two weeks ago, which was small but got engorged by the time she removed it later the same day. - No prophylactic antibiotics were admin istered post-removal, and the patient has not experienced any fever or rash typical of Lyme disease. - The patient has experienced joint pain , particularly in the left hip to buttocks, which began approximately three to four days ago. - The patient has a history of diverticu litis, with occasional abdominal discomfort noted, she is unsure if it's her abdomen or hip. - The patient reports episodes of chest pain and shortness of breath, reminiscent of previous heart attack symptoms, but no current symptoms are admitted to during the visit. - Pt asking for refill of inhaler Physical Exam General: Cooperative, healthy appearing, comfortable, no acute distress and well developed Orientation: Patient oriented x3 Limitations: No limitations Head: Normal to inspection Ears: Hearing grossly normal bilaterally Nose: Normal External nose present Face and sinus: Normal facial exam Eyes: Appearance normal, both eyes and all related structures Neck: Normal visual inspection and Yes full ROM Respiratory: Normal respiratory effort and able to speak in complete sentences. GI: soft, negative kearney's, negative mcburneys, no TTP throughout Skin: No rashes or lesions noted Neuro: Patient oriented x3, gait normal Extremities: Normal to inspection, no ttp left lateral hip, some TTP left buttock. Back/spine: no TTP lumbar spine or paraspinous muscles PFSH Medical History Non-ST elevation [place] (NSTEMI) Chronic post-traumatic stress disorder (PTSD) Pneumonia Post traumatic stress disorder (PTSD) Bipolar 2 disorder Asthma Cholecystectomy planned Cellulitis Hypothyroid Anxiety Surgical History Hx of tubal ligation Hx of bladder repair surgery H/O lumpectomy Hx of cholecystectomy Family History Father No problems noted. Mother Hypertension Diabetes History of open heart surgery Social History Housing: Other Alcohol intake: never Patient Tobacco Use Status: Former Tobacco user e-Cigarette/Vaping Use: Never Used Substance Use Type: Marijuana service: No Current occupational status: disabled Cognitive needs: No Hearing needs: No Vision needs: No Review of Systems Const All systems reviewed & are unremarkable except as noted in HPI and below Physical Exam Vital Signs: Last Vital Signs Temp 99.1 F 06/29/25 10:01 Pulse 70 06/29/25 10:01 BP 132/60 06/29/25 10:01 Pulse Ox 97 06/29/25 10:01 Oxygen Delivery Method Room Air 06/29/25 10:01 BMI result Body Mass Index 27.3 Assessment & Plan Assessment & Plan (1) Tick bite: Code(s): W57.XXXA - Bitten or stung by nonvenomous insect and other nonvenomous arthropods, initial encounter Qualifiers: Encounter type: initial encounter Site of tick bite: upper arm Laterality: left Qualified Code(s): S40.862A - Insect bite (nonvenomous) of left upper arm, initial encounter; W57.XXXA - Bitten or stung by nonvenomous insect and other nonvenomous arthropods, initial encounter Plan: Plan - A Lyme disease panel is recommended to be conducted after July 12 to confirm the diagnosis, as testing too early may yield false negatives. - If Lyme disease is confirmed, appropriate antibiotic treatment will be initiated. - The patient is advised to monitor for any worsening of joint pain or development of new symptoms and to consider taking ibuprofen for musculoskeletal pain if tolerated. - The patient is advised to call 911 if her symptoms of chest pain or sob return. She is refusing. Also suggested she contact her aircraft engine dismantler if chest pain or shortness of breath persists, as these symptoms may require further cardiac evaluation. - Refilled her albuterol inhaler, as requested. Patient was informed and verbally consented to the use of an ambient scribe for clinic note documentation during this visit. (2) Joint pain: Code(s): M25.50 - Pain in unspecified joint Qualifiers: Joint pain location: hip Laterality: bilateral Qualified Code(s): M25.551 - Pain in right hip; M25.552 - Pain in left hip Plan: as above Orders: Orders Lyme IgG/IgM w/reflex to WB 07/12/25 Jigna Ronquillo PA-C M25.50 - Pain in unspecified joint, W57.XXXA - Bitten or stung by nonvenomous insect and other nonvenomous arthropods, initial encounter Medications: Changed From clonazepam 0.5 - 1 mg (0.5 - 1 x 1 mg) PO TID 75 tabs 1RF To clonazepam 2.5 mg PO ONCE Bart MD Jennifer Refilled albuterol sulfate 90 mcg/actuation (Ventolin HFA) 2 puffs inhalation Q4-6H PRN 8.5 grams 0RF shortness of breath or wheezing Jigna Ronquillo PA-C Coding Level of Care Code Est Pt Level 3 (77328) Diagnoses Tick bite of left upper arm, initial encounter S40.862A; W57.XXXA Encounter type: initial encounter Site of tick bite: upper arm Laterality: left Pain of both hip joints M25.551; M25.552 Joint pain location: hip Laterality: bilateral
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
== END 2025-06-29 10:46 | disposition home or self-care (01) ==
PROVIDERS: PCP Internal Medicine; Visit Provider Physician Assistant
DX: S40.862A Insect bite (nonvenomous) of left upper arm, initial encounter (principal); W57.XXXA Bitten or stung by nonvenomous insect and other nonvenomous arthropods, initial encounter; M25.551 Pain in right hip; M25.552 Pain in left hip

== ENCOUNTER → 2025-06-29 09:47 | Outpatient (BNVA) | payer MEDICARE, MEDICAID, SELFPAY | PROVIDERS: PCP Internal Medicine; Visit Provider Physician Assistant | DX: M25.551 Pain in right hip (principal); M25.552 Pain in left hip; S40.862A Insect bite (nonvenomous) of left upper arm, initial encounter; W57.XXXA Bitten or stung by nonvenomous insect and other nonvenomous arthropods, initial encounter | CPT/HCPCS: 99212 ==

== ENCOUNTER 2025-09-15 08:40 | Outpatient (REF) | payer MEDICARE, MEDICAID, SELFPAY | END 2025-09-15 08:41 | disposition home or self-care (01) | LOC: HO.LNP 08:40 | PROVIDERS: PCP Internal Medicine; Visit Provider Physician Assistant | DX: N30.01 Acute cystitis with hematuria (principal) | CPT/HCPCS: 81003; 87086; 87088; 87186; 99212 ==

== ENCOUNTER 2025-09-15 08:40 | Outpatient (AMB) | payer MEDICARE, MEDICAID, SELFPAY ==
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
[2025-09-15 08:50] VITALS: BP 138/58; PULSE 70; TEMP 37.3; O2SAT 97; BMI 28.4
--- OUTSIDE RECORDS SUMMARY | 2025-09-15 09:04 | XMS_ITS | Encounter Summary ---
Author Organization [facility] Address [address] [place] [address] Care Team Providers Care Machine Maintenance Technician Name Role Phone Ania Hay MD Primary Care Provider Reason for Visit * Reason Onset Date Comments Hospital Follow-up 09/07/2025 Pt discharged from [facility] 09/06; needs hospital f/u appt within the week with care team. Encounter Details Date Type Department Care Team ([facility] st Contact Info) Description 09/07/2025 Telephone Adult Medicine - [address] [phone] Ania Hay MD [address] [place] [address] Social History Tobacco Use Types Packs/Day Years Used Date Smoking Tobacco: Some Days Cigarettes Smokeless Tobacco: Never Alcohol Use Standard Drinks/Week Comments No 0 (1 standard drink = 0.6 oz pur e alcohol) Housing Instability Answer Date Recorde d Are you worried that in the next 2 months you may not have stable housing? Yes 09/05/2025 Food Access & Nutrition Answer Date Rec orded Do you have access to a vari ety of food including fruits and vegetables? No 09/05/2025 Access to Healthcare Answer Date Record ed Within the last 3 months, ho w many times did you visit the emergency department for your medical care? 1 09/05/2025 Health Literacy Answer Date Recorded How often do you need to hav e someone help you when you read instructions, pamphlets, or other written material from your doctor or pharmacy? Rarely 09/05/2025 Caregiver: How often do you need to have someone help you when you read instructions, pamphlets, or other written material from your doctor or pharmacy? Not on file 09/05/2025 Financial Risk Answer Date Recorded How hard is it for you to pa y for the very basics like food, housing, medical care, and air conditioning / heating? Not very hard 09/05/2025 Transportation Answer Date Recorded Has the lack of transportati on kept you from meetings, work, or from getting things needed for daily living? No Has the lack of transportati on kept you from medical appointments or from getting medications? No 09/05/2025 Social Isolation Answer Date Recorded How often do you feel lonely or isolated from th ose around you? Rarely 09/05/2025 Food Risk Answer Date Recorded Within the past 12 months we worried whether our food would run out before we got money to buy more. Never true 09/05/2025 Within the past 12 months th e food we bought just didn't last and we didn't have money to get more. Never true 09/05/2025 Dependent Care Answer Date Recorded Do you need help finding or paying for care for your loved ones. For example, child day care teacher or elderly care for an older adult? No 09/05/2025 Education Answer Date Recorded Do you think completing more education or training, like finishing a GED, going to college, or learning a trade, would be helpful for you? No 09/05/2025 Employment and Income Answer Date Recor ded During the last four weeks, have you been actively looking for work? No 09/05/2025 Living Situation Answer Date Recorded What is your living situation? Unrecognized valu e 09/05/2025 Interpersonal Safety Answer Date Record ed Physical Abuse Unrecognized value 09/05/2025 Verbal Abuse Unrecognized value 09/05/2025 Comments No Sex and Gender Information Value Date Recorded Sex Assigned at Female 09/05/2025 4:15 PM EDT Legal Sex Female 7:19 AM EST Gender Identity Female 09/05/2025 4:15 PM EDT Sexual Orientation Straight 09/05/2025 4: 15 PM EDT documented as of this encounter Functional Status * Are you deaf or do you have serious difficulty hearing? Answer Date of Assessment Author No 09/05/2025 2:47 PM EDT Promise Hart RN * Are you blind or do you have serious difficulty seeing, even when wearing glasses? Answer Date of Assessment Author No 09/05/2025 2:47 PM EDT Promise Hart RN * Do you have serious difficulty walking or climbing stairs? Answer Date of Assessment Author No 09/05/2025 2:47 PM EDT Promise Hart RN * Do you have serious difficulty dressing or bathing? Answer Date of Assessment Author No 09/05/2025 2:47 PM EDT Promise Hart RN * Because of a physical, mental, or emotional condition, do you have serious difficulty doing errandsalone such as visiting the doctor? Answer Date of Assessment Author No 09/05/2025 2:47 PM EDT Promise Hart RN documented as of this encounter Mental Status * Because of a physical, mental, or emotional condition, do you have serious difficulty concentrating, remembering, or making decisions? (5 years old or older) Answer Entry Date Author No 09/05/2025 2:47 PM EDT Promise Hart RN documented in this encounter Progress Notes * Bairon Gloria RN - 09/14/2025 8:02 AM EST Left message for pt to please return our call * Bairon Gloria RN - 09/09/2025 9:01 AM EDT Left message for pt to please return our call * Bairon Gloria RN - 09/08/2025 9:20 AM EDT Left message for pt to please return our call * Bairon Gloria RN - 09/07/2025 1:15 PM EDT Left message for pt to please return our call documented in this encounter Plan of Treatment Not on file documented as of this encounter Visit Diagnoses Not on filedocumented in this encounter Care Teams Machine Maintenance Technician Relationship Specialty Start Date End Date Ania Hay MD [address] [place] [address] PCP - General 04/26/23 documented as of this encounter
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
== END 2025-09-15 09:24 | disposition home or self-care (01) ==
PROVIDERS: PCP Internal Medicine; Visit Provider Physician Assistant
DX: Z13.9 Encounter for screening, unspecified (principal); N30.01 Acute cystitis with hematuria

== ENCOUNTER → 2025-09-23 11:05 | Outpatient (BNVA) | payer MEDICARE, MEDICAID, SELFPAY | PROVIDERS: PCP Internal Medicine | DX: N93.9 Abnormal uterine and vaginal bleeding, unspecified (principal); M54.50 Low back pain, unspecified; G89.29 Other chronic pain; F41.9 Anxiety disorder, unspecified; Z59.82 Transportation insecurity; Z59.9 Problem related to housing and economic circumstances, unspecified; Z59.2 Discord with neighbors, lodgers and landlord; Z59.41 Food insecurity; Z13.9 Encounter for screening, unspecified | CPT/HCPCS: 81003; 99211; 99212 ==

== ENCOUNTER 2025-09-23 12:31 | Outpatient (AMB) | payer MEDICARE, MEDICAID, SELFPAY ==
[2025-09-23 12:31] VITALS: BP 144/56; PULSE 71; TEMP 37; O2SAT 96; BMI 28.1
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
== END 2025-09-23 13:50 | disposition home or self-care (01) ==
PROVIDERS: PCP Internal Medicine; Visit Provider Nurse Practitioner Family
DX: M54.50 Low back pain, unspecified (principal); G89.29 Other chronic pain; Z13.9 Encounter for screening, unspecified

== ENCOUNTER 2025-10-01 11:43 | Outpatient (AMB) | payer MEDICARE, MEDICAID, SELFPAY ==
--- OUTSIDE RECORDS SUMMARY | 2025-10-01 12:32 | XMS_ITS | Encounter Summary ---
Author Organization [facility] Address [address] [place] [address] Care Team Providers Care Android Ui Developer Name Role Phone Ania Hay MD Primary Care Provider Reason for Visit * Reason Onset Date Comments Hospital Follow-up 09/07/2025 Pt discharged from [facility] 09/06; needs hospital f/u appt within the week with care team. Encounter Details Date Type Department Care Team ([facility] st Contact Info) Description 09/07/2025 Telephone Adult Medicine - [address] [phone] Ania Hay MD [address] [place] [address] Social History Tobacco Use Types Packs/Day Years [...] care for your loved ones. For example, summer child caregiver or elderly care for an older adult? [...] Progress Notes * Bairon Gloria RN - 09/15/2025 9:57 AM EST Left message for pt to please return our call * Biaron Gloria RN - 09/14/2025 8:02 AM EST [...] on filedocumented in this encounter Care Teams Android Ui Developer Relationship Specialty Start Date End Date Ania Hay MD [address] [place] [address] PCP - General 04/26/23 documented as of this encounter
--- OUTSIDE RECORDS SUMMARY | 2025-10-01 12:33 | XMS_ITS | Clinical Summary ---
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 Assigned Physician: RAFIQ CONNORS Reviewed and Electronically Signed By: RAFIQ CONNORS Signed Date: 09/05/2025 09:51 ET Workstation ID: [id number] Transcribed By: Self Edit Transcribed Date: 09/05/2025 09:49 ET Vlad Munoz MD [facility] [place]ED[place] Final Result * CT Angio Head/Neck Stroke wo and/or w Contrast (09/05/2025 9:43 AM EDT) Anatomical Region Laterality Modality Head and Neck Computed Tomogra phy 09/05/2025 10:1 6 AM EDT Impressions 09/05/2025 10:21 AM EDT Patent intracranial arterial vasculature. Severe stenosis at the cervical vertebral artery origins bilaterally. No other significant stenosis in the cervical arterial vasculature. -------- FINAL REPORT -------- Dictated By: RAFIQ CONNORS Dictated Date: 09/05/2025 10:16 ET Assigned Physician: RAFIQ CONNORS Reviewed and Electronically Signed By: RAFIQ CONNORS Signed Date: 09/05/2025 10:21 ET Workstation ID: [id number] Transcribed By: Self Edit Transcribed Date: 09/05/2025 10:16 ET Narrative 09/05/2025 10:21 AM EDT PROCEDURE: Head and neck CTA INDICATION: Stroke, word finding difficulty TECHNIQUE: CTA of the head and neck with intravenous contrast. Multiplanar reformats. The examination was performed utilizing dose reduction techniques.3-D or MIP images were produced with postprocessing on an independent computer workstation. 90 mL ISOVUE-370 injected intravenously without complication. Total DLP 2640 COMPARISON: 09/02/2025. FINDINGS: CTA Neck: There is a left-sided aortic arch. Major branch arteries arising from the aortic arch are patent.. Common carotid and internal carotid arteries are patent in the neck. Severe stenosis at the cervical vertebral artery origins bilaterally. More distal portions of the cervical vertebral arteries are patent bilaterally. No dissection. Visualized lung apices are clear. Soft tissues of the neck are normal. Degenerative changes seen throughout the cervical spine with advanced left cervical facet arthritis. CTA Head: Intracranial portions of the internal carotid arteries are patent. M1 and A1 segments are patent. type origin of the right posterior cerebral artery. Distal middle cerebral and anterior cerebral arteries are patent. Vertebrobasilar system is patent. Superior cerebellar and posterior cerebral arteries are patent. Major dural venous sinuses opacify normally with contrast. No intracranial aneurysm or vascular malformation. Procedure Note Rafiq Connors MD - 09/05/2025 PROCEDURE: Head and neck CTA INDICATION: Stroke, word finding difficulty TECHNIQUE: CTA of the head and neck with intravenous contrast. Multiplanarreformats. The examination was performed utilizing dose reductiontechniques.3-D or MIP images were produced with postprocessing on anindependent computer workstation. 90 mL ISOVUE-370 injected intravenouslywithout complication. Total DLP 2640 COMPARISON: 09/02/2025. FINDINGS: CTA Neck: There is a left-sided aortic arch. Major branch arteries arising from theaortic arch are patent.. Common carotid and internal carotid arteries are patent in the neck. Severe stenosis at the cervical vertebral artery origins bilaterally.More distal portions of the cervical vertebral arteries are patentbilaterally. No dissection. Visualized lung apices are clear. Soft tissues of the neck are normal.Degenerative changes seen throughout the cervical spine with advanced leftcervical facet arthritis. CTA Head: Intracranial portions of the internal carotid arteries are patent. M1 andA1 segments are patent. type origin of the right posterior cerebralartery. Distal middle cerebral and anterior cerebral arteries arepatent. Vertebrobasilar system is patent. Superior cerebellar and posteriorcerebral arteries are patent. Major dural venous sinuses opacify normally with contrast. No intracranial aneurysm or vascular malformation. IMPRESSION: Patent intracranial arterial vasculature. Severe stenosis at the cervical vertebral artery origins bilaterally. Noother significant stenosis in the cervical arterial vasculature. -------- FINAL REPORT -------- Dictated By: RAFIQ CONNORS Dictated Date: 09/05/2025 10:16 ET Assigned Physician: RAFIQ CONNORS Reviewed and Electronically Signed By: RAFIQ CONNORS Signed Date: 09/05/2025 10:21 ET Workstation ID: [id number] Transcribed By: Self Edit Transcribed Date: 09/05/2025 10:16 ET us Vlad Munoz MD IMG CT PROCEDURES Final Result * Troponin I high sensitivity (NOW) (09/05/2025 9:34 AM EDT) [facility] High Sensitivity Troponin I 4 <=54 ng/L LAB CHEMISTRY METHOD 09/05/2025 10:06 AM EDT [facility] Blood Venous blood specimen / Unknown Venipuncture / Unknown 09/05/2025 9:34 AM EDT 09/05/2025 9:39 AM EDT Narrative [facility] - 09/05/2025 10:06 AM EDT High levels of biotin in samples may falsely decrease hsTroponin values. Use caution when interpreting hsTroponin results in patients taking biotin who exhibit renal impairment (eGFR <60) or in patients taking more than 20 mg/day of biotin. us Vlad Munoz MD LAB BLOOD ORDERABLES Final Resul t [facility] [address] [place] [address], * (ABNORMAL) CBC auto differential (09/05/2025 9:34 AM EDT) Only the most recent of2 resultswithin the time period is included. [facility] WBC 7.6 4.8 - 10.8 K/mcL LAB HEMETOLOGY METHOD 09/05/2025 9:47 AM [facility] RBC 5.30(H) 3.80 - 4.80 M/[facility] LAB HEMETOLOGY METHOD 09/05/2025 9:47 AM [facility] Hemoglobin 14.8 11.5 - 16.0 g/dL LAB HEMETOLOGY METHOD 09/05/2025 9:47 AM [facility] Hematocrit 45.4 35.0 - 47.0 % LAB HEMETOLOGY METHOD 09/05/2025 9:47 AM [facility] MCV 86.3 79.0 - 98.0 FL LAB HEMETOLOGY METHOD 09/05/2025 9:47 AM [facility] MCH 28.1 27.0 - 32.0 pcg LAB HEMETOLOGY METHOD 09/05/2025 9:47 AM [facility] MCHC 32.6 32.0 - 37.0 g/dL LAB HEMETOLOGY METHOD 09/05/2025 9:47 AM [facility] RDW 11.9 11.0 - 15.0 % LAB HEMETOLOGY METHOD 09/05/2025 9:47 AM [facility] Platelets 213 130 - 400 K/mcL LAB HEMETOLOGY METHOD 09/05/2025 9:47 AM [facility] MPV 10.2 7.0 - 11.0 FL LAB HEMETOLOGY METHOD 09/05/2025 9:47 AM [facility] NRBC 0.0 <1.0 % LAB HEMETOLOGY METHOD 09/05/2025 9:47 AM [facility] NRBC Absolute 0.00 <0.10 K/mcL LAB HEMETOLOGY METHOD 09/05/2025 9:47 AM [facility] Neutrophils Relative 59.2 % LAB HEMETOLOGY METHOD 09/05/2025 9:47 AM [facility] Lymphocytes Relative 31.4 % LAB HEMETOLOGY METHOD 09/05/2025 9:47 AM [facility] Monocytes Relative 5.8 % LAB HEMETOLOGY METHOD 09/05/2025 9:47 AM [facility] Eosinophils Relative 2.6 % LAB HEMETOLOGY METHOD 09/05/2025 9:47 AM [facility] Basophils Relative 0.9 % LAB HEMETOLOGY METHOD 09/05/2025 9:47 AM [facility] Immature Granulocytes Relative 0.1 % LAB HEMETOLOGY METHOD 09/05/2025 9:47 AM [facility] Neutrophils Absolute 4.52 1.50 - 7.00 K/mcL LAB HEMETOLOGY METHOD 09/05/2025 9:47 AM [facility] Lymphocytes Absolute 2.40 1.00 - 5.00 K/mcL LAB HEMETOLOGY METHOD 09/05/2025 9:47 AM [facility] Monocytes Absolute 0.44 0.20 - 1.00 K/mcL LAB HEMETOLOGY METHOD 09/05/2025 9:47 AM [facility] Eosinophils Absolute 0.20 0.00 - 0.50 K/mcL LAB HEMETOLOGY METHOD 09/05/2025 9:47 AM [facility] Basophils Absolute 0.07 0.00 - 0.20 K/mcL LAB HEMETOLOGY METHOD 09/05/2025 9:47 AM [facility] Immature Granulocytes Absolute 0.01 0.00 - 0.03 K/mcL LAB HEMETOLOGY METHOD 09/05/2025 9:47 AM [facility] Blood Venous blood specimen / Unknown Venipuncture / Unknown 09/05/2025 9:34 AM EDT 09/05/2025 9:39 AM EDT us Vlad Munoz MD LAB BLOOD ORDERABLES Final Resul t Performing Organization Address City/[facility]/ZIP Co de Phone Number [facility] [address] [place] [address], [place] [phone] * Activated partial thromboplastin time (09/05/2025 9:34 AM EDT) aPTT 31.5 24.1 - 39.3 sec LAB COAGULATION METHOD 09/05/2025 10:03 AM EDT [facility] Blood Venous blood specimen / Unknown Venipuncture / Unknown 09/05/2025 9:34 AM EDT 09/05/2025 9:39 AM EDT us Vlad Munoz MD LAB BLOOD ORDERABLES Final Resul t Performing Organization Address [facility] Co de Phone Number [facility] [address] [place] [address], [place] [phone] * Prothrombin time with INR (09/05/2025 9:34 AM EDT) Pathologist [facility] Protime 11.0 10.6 - 13.9 sec LAB COAGULATION METHOD 09/05/2025 10:03 AM EDT [facility] INR 0.9 LAB COAGULATION METHOD 09/05/2025 10:03 AM EDT [facility] Blood Venous blood specimen / Unknown Venipuncture / Unknown 09/05/2025 9:34 AM EDT 09/05/2025 9:39 AM EDT us Vlad Munoz MD LAB BLOOD ORDERABLES Final Resul t Performing Organization Address [facility]/ZIP Co de Phone Number [facility] [address] [place] [address], [place] [phone] * Magnesium (09/05/2025 9:34 AM EDT) Only the most recent of2 resultswithin the time period is included. Magnesium 2.3 1.9 - 2.6 mg/dL LAB CHEMISTRY METHOD 09/05/2025 10:04 AM EDT [facility] Blood Venous blood specimen / Unknown Venipuncture / Unknown 09/05/2025 9:34 AM EDT 09/05/2025 9:39 AM EDT us Vlad Munoz MD LAB BLOOD ORDERABLES Final Resul t [facility] [address] [place] [address], [place] [phone] * OR CRITICAL CARE 30-74 MINUTES (09/05/2025 9:09 AM EDT) Narrative Vlad Munoz MD - 09/05/2025 9:09 AM EDT Vlad Munoz MD 09/05/2025 1:50 PM Critical Care Performed by: Vlad Munoz MD Authorized by: Vlad Munoz MD Critical care provider statement: Critical care time (minutes): 35 Total face to face critical care time (minutes): 35 Critical care time was exclusive of: Separately billable procedures and treating other patients Critical care was necessary to treat or prevent imminent or life-threatening deterioration of the following conditions: [employer]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 Critical care was time spent personally by me on the following activities: Development of treatment plan with patient or surrogate, discussions with consultants, evaluation of patient's response to treatment, ordering and review of laboratory studies, ordering and review of radiographic studies, re-evaluation of patient's condition, review of old charts, ordering and performing treatments and interventions and examination of patient I assumed direction of critical care for this patient from another provider in my specialty: no Care discussed with: admitting provider Comments: Slurred speech and sensory deficit concern for acute stroke requiring immediate head imaging and consultation with stroke neurologist for consideration for thrombolytic therapy. us Vlad Munoz MD IN CLINIC/BEDSIDE ORDERABLES Fin al Result * CT Angio Head/Neck wo and/or w Contrast (09/02/2025 11:14 AM EDT) Anatomical Region Laterality Modality Head and Neck Computed Tomogra phy 09/02/2025 12:2 5 PM EDT Impressions 09/02/2025 12:35 PM EDT Normal CTA of the brain and neck for the patient's age. No evidence of aneurysm, thrombosis or occlusion. -------- FINAL REPORT -------- Dictated By: Whitley Colon Dictated Date: 09/02/2025 12:25 ET Assigned Physician: Whitley Colon Reviewed and Electronically Signed By: Whitley Colon Signed Date: 09/02/2025 12:35 ET Workstation ID: [id number] Transcribed By: Self Edit Transcribed Date: 09/02/2025 12:25 ET Narrative 09/02/2025 12:35 PM EDT INDICATION: Dysarthria, right temporal pain TECHNIQUE: CTA of the brain and neck performed with a total of 90 cc Isovue-370 administered intravenously without incident. Arterial phase imaging of the brain and neck and noncontrast imaging of the brain obtained. Axial, coronal and sagittal imaging reviewed including MIPS. 3D multiplanar reconstructions performed on a computer workstation. Scanner: [employer] 64slice VCT Dose reduction technique: ASIR (Adaptive statistical iterative reconstruction) and/or AEC (automated exposure control) Dose: total exam DLP 3484 mGY per cm COMPARISON: No prior studies are available for comparison. FINDINGS: Noncontrast imaging demonstrates no acute hemorrhage, midline shift or mass effect. Ventricles, sulci, sylvian fissures and basal cisterns are symmetric and normal in size and shape. Bony structures are unremarkable. Arterial phase: Aortic arch: Mild atherosclerotic changes along the aortic arch. Motion artifact along the ascending aorta. Widely patent arch vessels. Right carotid: Mild tortuous right common carotid artery. Widely patent carotid bifurcation with mild noncalcified plaque along the origin of the ICA without significant stenosis. Left carotid: Mild calcified plaque along the carotid bifurcation without stenosis. Subclavian/vertebral: Widely patent bilateral subclavian arteries. At least moderate stenosis noted along the origins of both vertebral arteries which are otherwise symmetric in size and normal in course and caliber. Intracranial vessels: Vertebral arteries join to form the basilar artery which is normal in course and caliber and terminates into the left P1 segment and widely patent posterior cerebral artery. Tiny caliber left posterior communicating artery noted. On the right side the right posterior communicating artery supplies the widely patent right posterior cerebral artery. Mild atherosclerotic plaque along the intracranial ICAs bilaterally. Patent bilateral A1 segments, anterior communicating artery and anterior cerebral arteries. Widely patent bilateral middle cerebral arteries. CT neck: No cervical lymphadenopathy. Parotid and submandibular are within normal limits. Atrophic thyroid spleen. No parapharyngeal or retropharyngeal soft tissue swelling. Bony structures: Demonstrate diffuse degenerative changes. Procedure Note Whitley Colon MD - 09/02/2025 INDICATION: Dysarthria, right temporal pain TECHNIQUE: CTA of the brain and neck performed with a total of 90 ccIsovue-370 administered intravenously without incident. Arterial phaseimaging of the brain and neck and noncontrast imaging of the brainobtained. Axial, coronal and sagittal imaging reviewed including MIPS. 3Dmultiplanar reconstructions performed on a computer workstation. Scanner: [employer] 64slice VCT Dose reduction technique: ASIR (Adaptive statistical iterativereconstruction) and/or AEC (automated exposure control) Dose: total exam DLP 3484 mGY per cm COMPARISON: No prior studies are available for comparison. FINDINGS: Noncontrast imaging demonstrates no acute hemorrhage, midline shift ormass effect. Ventricles, sulci, sylvian fissures and basal cisterns aresymmetric and normal in size and shape. Bony structures areunremarkable. Arterial phase: Aortic arch: Mild atherosclerotic changes along the aortic arch. Motionartifact along the ascending aorta. Widely patent arch vessels. Right carotid: Mild tortuous right common carotid artery. Widely patentcarotid bifurcation with mild noncalcified plaque along the origin of theICA without significant stenosis. Left carotid: Mild calcified plaque along the carotid bifurcation withoutstenosis. Subclavian/vertebral: Widely patent bilateral subclavian arteries. Atleast moderate stenosis noted along the origins of both vertebral arterieswhich are otherwise symmetric in size and normal in course and caliber. Intracranial vessels: Vertebral arteries join to form the basilar arterywhich is normal in course and caliber and terminates into the left [id number] and widely patent posterior cerebral artery. Tiny caliber leftposterior communicating artery noted. On the right side the rightposterior communicating artery supplies the widely patent right posteriorcerebral artery. Mild atherosclerotic plaque along the intracranial ICAs bilaterally.Patent bilateral A1 segments, anterior communicating artery and anteriorcerebral arteries. Widely patent bilateral middle cerebral arteries. CT neck: No cervical lymphadenopathy. Parotid and submandibular are withinnormal limits. Atrophic thyroid spleen. No parapharyngeal orretropharyngeal soft tissue swelling. Bony structures: Demonstrate diffuse degenerative changes. IMPRESSION: Normal CTA of the brain and neck for the patient's age. No evidence ofaneurysm, thrombosis or occlusion. -------- FINAL REPORT -------- Dictated By: Whitley Colon Dictated Date: 09/02/2025 12:25 ET Assigned Physician: Whitley Colon Reviewed and Electronically Signed By: Whitley Colon Signed Date: 09/02/2025 12:35 ET Workstation ID: [id number] Transcribed By: Self Edit Transcribed Date: 09/02/2025 12:25 ET Lupe Solorzano [facility] CT PROCEDURES Final Resul t * (ABNORMAL) Urinalysis with reflex microscopic and culture (09/02/2025 9:52 AM EDT) Specific [place] Urine 1.025 1.003 - 1.030 LAB URINALYSIS - AUTOMATED METHOD 09/02/2025 10:24 AM [facility] pH, Urine 6.5 5.0 - 8.0 pH LAB URINALYSIS - AUTOMATED METHOD 09/02/2025 10:24 AM [facility] Leukocytes, Urine Small(A) Negative LAB URINALYSIS - AUTOMATED METHOD 09/02/2025 10:24 AM [facility] Nitrite, Urine Negative Negative LAB URINALYSIS - AUTOMATED METHOD 09/02/2025 10:24 AM [facility] Protein, Urine 100(A) <=Trace mg/dL LAB URINALYSIS - AUTOMATED METHOD 09/02/2025 10:24 AM [facility] Glucose, Urine Negative Negative mg/dL LAB URINALYSIS - AUTOMATED METHOD 09/02/2025 10:24 AM [facility] Ketones, Urine Negative Negative mg/dL LAB URINALYSIS - AUTOMATED METHOD 09/02/2025 10:24 AM [facility] Urobilinogen, Urine 1.0 0.2 - 1.0 mg/dL LAB URINALYSIS - AUTOMATED METHOD 09/02/2025 10:24 AM [facility] Bilirubin, Urine Negative Negative LAB URINALYSIS - AUTOMATED METHOD 09/02/2025 10:24 AM [facility] Blood, Urine Negative Negative LAB URINALYSIS - AUTOMATED METHOD 09/02/2025 10:24 AM [facility] RBC, Urine 2.5 0 - 4 /HPF LAB URINALYSIS - AUTOMATED METHOD 09/02/2025 10:24 AM [facility] WBC, Urine 9.5(H) 0 - 4 /HPF LAB URINALYSIS - AUTOMATED METHOD 09/02/2025 10:24 AM [facility] Squamous Epithelial, Urine 71(H) 0 - 60 /LPF LAB URINALYSIS - AUTOMATED METHOD 09/02/2025 10:24 AM [facility] Bacteria, Urine Few(A) Negative /HPF LAB URINALYSIS - AUTOMATED METHOD 09/02/2025 10:24 AM [facility] Hyaline Casts, Urine 1.2 0 - 3 /LPF LAB URINALYSIS - AUTOMATED METHOD 09/02/2025 10:24 AM [facility] Urine Urine specimen obtained by clean catch procedure / Unknown Non-blood Collection / Unknown 09/02/2025 9:52 AM EDT 09/02/2025 10:11 AM EDT us Lupe Solorzano DO LAB URINE ORDERABLES Final Re sult [facility] [address] [place] [address], [place] [phone] * Azevedo urine culture tube (09/02/2025 9:52 AM EDT) [facility] Extra Tube Hold for add-ons. 09/02/2025 12:01 PM EDT [facility] Comment:Auto resulted. Urine Urine specimen obtained by clean catch procedure / Unknown Non-blood Collection / Unknown 09/02/2025 9:52 AM EDT 09/02/2025 10:11 AM EDT [facility] LAB URINE ORDERABLES Final Re sult [facility] [address] [place] [address], [place] [phone] * Culture urine (09/02/2025 9:52 AM EDT) [facility] Culture, Urine No growth 09/03/2025 8:29 AM EDT [facility] Urine Urine specimen obtained by clean catch procedure / Unknown Non-blood Collection / Unknown 09/02/2025 9:52 AM EDT 09/02/2025 10:24 AM EDT [facility] LAB MICROBIOLOGY - GENERAL OR DERABLES Final Result [facility] [address] [place] [address], [place] [phone] * Urine Albumin Creatinine Ratio (01/11/2020) Pathologist [facility] Urine Albumin Creatinine Ratio Abstracted us Historical Provider HEALTH MAINTENANCE Final Result * Colonoscopy (06/11/2017) [facility] Colonoscopy No interpretation , Abstracted Anatomical Region Laterality Modality Other Historical Provider HEALTH MAINTENANCE Final Result * Cervical Cancer Screening: HPV (08/07/2016) [facility] Cervical Cancer Screening: HPV Negative, Abstracted Historical Provider HEALTH MAINTENANCE Final Result * HIV Screening (02/14/2015) HIV Screening Abstracted Historical Provider HEALTH MAINTENANCE Final Result * Hepatitis C Screening (07/28/2014) Hepatitis C Screening Abstracted Historical Provider HEALTH MAINTENANCE Final Result from Last 3 Months or Most Recently Relevant to Health Maintenance Insurance MEDICAID - [place] MEDICARE Advance Directives * Full Code - Confirmed (Latest Code Status on File) Date Activated Date Inactivated Comments 09/05/2025 2:18 PM 09/06/2025 2:32 PM This code status was ascertained in the following way: Code status discussion: discussion with patient To update the patient's code status, place a code status order. Do not modify or discontinue any currently active code status orders. * Full Code - Default Date Activated Date Inactivated Comments 09/05/2025 11:28 AM 09/05/2025 2:18 PM This is o rder is used when code status has not been discussed with the patient, or code status is otherwise unknown/unconfirmed To update the patient's code status, place a code status order. Do not modify or discontinue any currently active code status orders. Care Teams Registration Coordinator Relationship Specialty Start Date End Date Ania Hay MD [address] [place] [address] PCP - General 04/26/23
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
== END 2025-10-01 13:10 | disposition home or self-care (01) ==
LOC: HO.HOP 11:43
PROVIDERS: PCP Internal Medicine; Visit Provider Psychiatry & Neurology Psychiatry
DX: F31.81 Bipolar II disorder (principal); F43.12 Post-traumatic stress disorder, chronic
CPT/HCPCS: 90833; 99214

== ENCOUNTER 2025-10-01 11:43 | Outpatient (REF) | payer MEDICARE, MEDICAID, SELFPAY ==
[2025-10-01 14:11] LABS: MANUAL DIFF FLAG NO
[2025-10-01 14:46] LABS: Hematocrit 42.3 % (37.0-47.0); Hemoglobin 14.2 g/dl (12.0-16.0); Imm Gran Abs Auto 0.02 X10*3/uL (0.00-0.03); Imm Gran Pct Auto 0.3 % (0.0-0.4); Lymphocytes Absolute Auto 2.6 X10*3/uL (1.2-4.9); Mean Corpuscular HGB Conc 33.6 g/dl (31.0-35.0); Mean Corpuscular Hemoglobin 28.7 pg (27.0-33.0); Mean Corpuscular Volume 85.5 fL (80.0-98.0); NRBC Abs Auto 0.000 X10*3/uL (0.0-0.012); NRBC Pct Auto 0.0 /100WBC (0.0-0.2); Platelet Count 209 X10*3/uL (160-400); Red Blood Count 4.95 X10*6/uL (4.20-5.50); White Blood Count 7.4 X10*3/uL (4.8-10.8)
[2025-10-01 15:16] LABS: Alanine Aminotransferase 25 U/L (0-31); Albumin Level 4.9 g/dL (3.5-5.0); Alkaline Phosphatase 76 U/L (39-117); Anion Gap 9 (12-20); Aspartate Amino Transferase 24 U/L (5-31); Blood Urea Nitrogen 14 mg/dL (9-16); Calcium 9.7 mg/dL (8.4-10.2); Carbon Dioxide 30 mmol/L (22-29); Chloride 109 mmol/L (96-108); Estimated Glomerular Filt Rate > 60; Magnesium 2.6 mg/dL (1.6-2.6); Potassium 4.0 mmol/L (3.3-5.1); Sodium 144 mmol/L (135-145); Total Protein 6.9 g/dL (6.5-8.0)
[2025-10-01 15:45] LABS: Folate 10.6 ng/mL (> or = 4.0); Vitamin B12 523 pg/mL (200-900)
[2025-10-01 16:25] LABS: Free T4 (Free Thyroxine) 1.40 ng/dL (0.71-1.85)
[2025-10-02 14:18] LABS: Lyme Abs Screen <0.90 index
[2025-10-05 20:28] LABS: Lamotrigine Lamictal <0.5 mcg/mL (2.5-15.0)
== END 2025-10-01 11:44 | disposition home or self-care (01) ==
LOC: HO.LAB 11:43
PROVIDERS: PCP Internal Medicine; Visit Provider Psychiatry & Neurology Psychiatry
DX: F31.81 Bipolar II disorder (principal); F43.12 Post-traumatic stress disorder, chronic; E03.9 Hypothyroidism, unspecified; R73.9 Hyperglycemia, unspecified; S06.0XAA Concussion with loss of consciousness status unknown, initial encounter; X58.XXXA Exposure to other specified factors, initial encounter; Z01.84 Encounter for antibody response examination
CPT/HCPCS: 36415; 80053; 80175; 82607; 82746; 83036; 83735; 84439; 84443; 85025; 86617; 86618; 99212

== ENCOUNTER 2025-10-04 11:52 | Outpatient (AMB) | payer MEDICARE, MEDICAID, SELFPAY ==
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
[2025-10-04 12:01] VITALS: BP 134/68; PULSE 76; RESP 18; O2SAT 98; BMI 27.9
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
== END 2025-10-04 14:56 | disposition home or self-care (01) ==
LOC: HO.HMCC 11:53
PROVIDERS: PCP Internal Medicine; Visit Provider Internal Medicine
DX: I10 Essential (primary) hypertension (principal); F31.81 Bipolar II disorder; S06.0XAA Concussion with loss of consciousness status unknown, initial encounter; S04.60 Injury of acoustic nerve, unspecified side; E78.5 Hyperlipidemia, unspecified; E03.9 Hypothyroidism, unspecified

== ENCOUNTER → 2025-10-04 11:52 | Outpatient (BNVA) | payer MEDICARE, MEDICAID, SELFPAY | PROVIDERS: PCP Internal Medicine; Visit Provider Internal Medicine | DX: Z09 Encounter for follow-up examination after completed treatment for conditions other than malignant neoplasm (principal); F31.81 Bipolar II disorder; S04.60 Injury of acoustic nerve, unspecified side; I10 Essential (primary) hypertension; E78.5 Hyperlipidemia, unspecified; E03.9 Hypothyroidism, unspecified; Z87.820 Personal history of traumatic brain injury | CPT/HCPCS: 99212 ==

== ENCOUNTER → 2025-10-14 11:01 | Outpatient (BNVA) | payer MEDICARE, MEDICAID, SELFPAY | PROVIDERS: PCP Internal Medicine; Visit Provider Social Worker | DX: F31.81 Bipolar II disorder (principal); F43.12 Post-traumatic stress disorder, chronic; Z13.31 Encounter for screening for depression | CPT/HCPCS: 96127 ==

== ENCOUNTER 2025-10-14 13:52 | Outpatient (AMB) | payer MEDICARE, MEDICAID, SELFPAY ==
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
== END 2025-10-14 13:53 | disposition home or self-care (01) ==
LOC: HO.HOP 13:52
PROVIDERS: PCP Internal Medicine; Visit Provider Social Worker
DX: F31.81 Bipolar II disorder (principal); F43.12 Post-traumatic stress disorder, chronic
CPT/HCPCS: 90791

== ENCOUNTER 2025-10-18 10:04 | Outpatient (AMB) | payer MEDICARE, MEDICAID, SELFPAY ==
[2025-10-18 10:40] VITALS: BP 126/48; PULSE 58; TEMP 36.9; O2SAT 98; BMI 29.1
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
== END 2025-10-18 11:36 | disposition home or self-care (01) ==
PROVIDERS: PCP Internal Medicine; Visit Provider Physician Assistant Medical
DX: S40.862A Insect bite (nonvenomous) of left upper arm, initial encounter (principal); W57.XXXA Bitten or stung by nonvenomous insect and other nonvenomous arthropods, initial encounter; L03.114 Cellulitis of left upper limb

== ENCOUNTER → 2025-10-18 10:04 | Outpatient (BNVA) | payer MEDICARE, MEDICAID, SELFPAY | PROVIDERS: PCP Internal Medicine; Visit Provider Physician Assistant Medical | DX: S40.862A Insect bite (nonvenomous) of left upper arm, initial encounter (principal); W57.XXXA Bitten or stung by nonvenomous insect and other nonvenomous arthropods, initial encounter; L03.114 Cellulitis of left upper limb | CPT/HCPCS: 99212 ==

== ENCOUNTER 2025-10-21 13:05 | Outpatient (AMB) | payer MEDICARE, MEDICAID, SELFPAY ==
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
== END 2025-10-21 13:06 | disposition home or self-care (01) ==
LOC: HO.HOP 13:05
PROVIDERS: PCP Internal Medicine; Visit Provider Social Worker
DX: F31.81 Bipolar II disorder (principal); F43.12 Post-traumatic stress disorder, chronic
CPT/HCPCS: 90837

== ENCOUNTER 2025-10-22 13:20 | Outpatient (AMB) | payer MEDICARE, MEDICAID, SELFPAY ==
[2025-10-22 13:23] VITALS: BP 170/66; PULSE 79; O2SAT 97; BMI 29.1
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
== END 2025-10-22 13:56 | disposition home or self-care (01) ==
PROVIDERS: PCP Internal Medicine; Visit Provider Physician Assistant
DX: L30.9 Dermatitis, unspecified (principal)

== ENCOUNTER → 2025-10-22 13:20 | Outpatient (BNVA) | payer MEDICARE, MEDICAID, SELFPAY | PROVIDERS: PCP Internal Medicine; Visit Provider Physician Assistant | DX: L30.9 Dermatitis, unspecified (principal) | CPT/HCPCS: 99212 ==

== ENCOUNTER 2025-10-27 11:28 | Outpatient (AMB) | payer MEDICARE, MEDICAID, SELFPAY ==
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
== END 2025-10-27 12:38 | disposition home or self-care (01) ==
LOC: HO.HOP 11:28
PROVIDERS: PCP Internal Medicine; Visit Provider Social Worker
DX: F31.81 Bipolar II disorder (principal); F43.12 Post-traumatic stress disorder, chronic
CPT/HCPCS: 90837

== ENCOUNTER → 2025-10-27 11:28 | Outpatient (BNVA) | payer MEDICARE, MEDICAID, SELFPAY | PROVIDERS: PCP Internal Medicine; Visit Provider Social Worker | DX: F31.81 Bipolar II disorder (principal); F43.12 Post-traumatic stress disorder, chronic; Z13.31 Encounter for screening for depression; Z13.39 Encounter for screening examination for other mental health and behavioral disorders; Z79.899 Other long term (current) drug therapy; Z71.89 Other specified counseling | CPT/HCPCS: 96127 ==

== ENCOUNTER 2025-11-01 10:26 | Outpatient (AMB) | payer MEDICARE, MEDICAID, SELFPAY ==
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
== END 2025-11-01 11:48 | disposition home or self-care (01) ==
LOC: HO.HOP 10:26
PROVIDERS: PCP Internal Medicine; Visit Provider Psychiatry & Neurology Psychiatry
DX: F31.81 Bipolar II disorder (principal); F43.12 Post-traumatic stress disorder, chronic
CPT/HCPCS: 99214

== ENCOUNTER → 2025-11-01 10:26 | Outpatient (BNVA) | payer MEDICARE, MEDICAID, SELFPAY | PROVIDERS: PCP Internal Medicine; Visit Provider Psychiatry & Neurology Psychiatry | DX: F31.81 Bipolar II disorder (principal); F43.12 Post-traumatic stress disorder, chronic | CPT/HCPCS: 99212 ==

== ENCOUNTER 2025-11-10 10:44 | Emergency (ER) | payer MEDICARE, MEDICAID, SELFPAY ==
--- NOTE | ~2025-11-10 | CT_ITS ---
EXAMINATION: CT ABDOMEN AND PELVIS WITH CONTRAST CLINICAL INFORMATION: Lower abdominal pain, nausea, vomiting, diarrhea, and fever. 65-year-old female. COMPARISON: 04/25/2021, 07/23/2018. TECHNIQUE: Multidetector volumetric images were obtained from the superior aspect of the liver through the pubic symphysis following administration 85 mL of Omnipaque 350 intravenous contrast. Sagittal and coronal reformatted images were obtained on the technologist's workstation. Oral contrast: No This CT examination was performed using dose optimization techniques as appropriate, variously including the following: *Automated exposure control *Adjustment of mA and/or kV according to patient size (this includes techniques or standardized protocols for targeted exams where dose is matched to indication/reason for exam; i.e. extremities or head) *Use of iterative reconstruction technique FINDINGS: LUNG BASES: Respiratory motion degradation. Lung bases clear. No effusions. There are esophageal varices noted. Heart size is normal. There are no effusions. LIVER, GALLBLADDER, AND BILIARY TREE: The liver is normal in size, shape, and attenuation. No focal hepatic lesion is present. There is mild diffuse intra and extrahepatic biliary dilatation present, similar to the prior examination and likely reservoir effect from cholecystectomy. Gallbladder is surgically absent. PANCREAS: Unremarkable. SPLEEN: Unremarkable. ADRENAL GLANDS: Unremarkable. KIDNEYS AND URETERS: The kidneys are normal in size, shape, and attenuation. No hydronephrosis, hydroureter, or calculi seen. No perinephric stranding. BLADDER: Poorly distended. Grossly normal. GASTROINTESTINAL TRACT: Normal appendix is visualized. Sigmoid colon is mildly redundant. Colon is otherwise normal in caliber and course without wall thickening or inflammatory changes. Stomach is decompressed to a moderate degree. The duodenum is minimally dilated, likely on the basis of transient peristalsis. The small bowel is normal in caliber and course. No wall thickening or inflammation present. No evidence of obstruction. No rectal abnormality present. PERITONEUM/RETROPERITONEUM: No free air or ascites. Mild haziness of the small bowel mesentery with a few small associated scattered lymph nodes consistent with stable and unchanged mesenteric panniculitis. ABDOMINAL WALL: No significant hernia is appreciated. LYMPH NODES: No abnormal lymphadenopathy is present. VASCULAR: Heavy calcification of the aorta and iliac arteries, and their branches. No aneurysm is present. PELVIC VISCERA: Uterus and adnexal structures are normal. No adnexal masses. OSSEOUS STRUCTURES: No suspicious lytic or blastic bone lesions. There are mild degenerative changes of the spine, most notable L4-S1. There are moderate degenerative changes in the hip joints bilaterally. CT/CT abdomen pelvis w IV con IMPRESSION: 1. There are no acute findings in the abdomen or pelvis. 2. Cholecystectomy. Biliary dilatation both intra and extrahepatic is thought to represent reservoir effect from cholecystectomy, and appears unchanged from 2020 exam. Would correlate with LFTs. 3. Ancillary findings as discussed in the body of the report. Electronically signed by: Marlon Mathews MD 11/10/2025 02:40 PM [facility]
[2025-11-10 11:04] VITALS: BP 130/58; PULSE 63; RESP 16; TEMP 37.1; O2SAT 97; BMI 27.4
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
[2025-11-10 11:43] LABS: Hematocrit 43.5 % (37.0-47.0); Hemoglobin 15.0 g/dl (12.0-16.0); Imm Gran Abs Auto 0.01 X10*3/uL (0.00-0.03); Imm Gran Pct Auto 0.4 % (0.0-0.4); Lymphocytes Absolute Auto 1.1 X10*3/uL (1.2-4.9); MANUAL DIFF FLAG SCAN; Mean Corpuscular HGB Conc 34.5 g/dl (31.0-35.0); Mean Corpuscular Hemoglobin 29.0 pg (27.0-33.0); Mean Corpuscular Volume 84.0 fL (80.0-98.0); NRBC Abs Auto 0.000 X10*3/uL (0.0-0.012); NRBC Pct Auto 0.0 /100WBC (0.0-0.2); Platelet Count 148 X10*3/uL (160-400); Red Blood Count 5.18 X10*6/uL (4.20-5.50); SCAN SMEAR FLAG 1; White Blood Count 2.3 X10*3/uL (4.8-10.8)
[2025-11-10 12:04] LABS: Alanine Aminotransferase 83 U/L (0-31); Albumin Level 4.5 g/dL (3.5-5.0); Alkaline Phosphatase 99 U/L (39-117); Anion Gap 13 (12-20); Aspartate Amino Transferase 111 U/L (5-31); Blood Urea Nitrogen 18 mg/dL (9-16); Calcium 9.9 mg/dL (8.4-10.2); Carbon Dioxide 28 mmol/L (22-29); Chloride 101 mmol/L (96-108); Creatinine Clr Calc Pharmacy 57.3; Estimated Glomerular Filt Rate 57; Lipase 26 U/L (8-78); Magnesium 2.2 mg/dL (1.6-2.6); Potassium 3.4 mmol/L (3.3-5.1); Sodium 139 mmol/L (135-145); Total Protein 6.7 g/dL (6.5-8.0)
[2025-11-10 12:29] LABS: Resp Syncy Virus RNA Qual PCR NEGATIVE (Negative); SARS COV2 PCR INHOUSE NEGATIVE (Negative)
[2025-11-10 13:24] VITALS: BP 133/54; PULSE 56; RESP 16; O2SAT 97
[2025-11-10 13:40] LABS: Appearance Urine Cloudy; Glucose Urine UA Negative (Negative); PH 5.5 (5.0-9.0); Specific Gravity - Urine 1.015 (1.005-1.025); UMIC TRIGGER UACC YES
[2025-11-10 14:03] LABS: Epith (RTE) Cast Present
[2025-11-10] MEDS: iohexoL 350 MG/ML 100 ML INFUS..BTL IV (14:11)
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
[2025-11-10 15:19] VITALS: BP 132/65; PULSE 82; RESP 16; TEMP 37.1; O2SAT 97
[2025-11-10 15:30] VITALS: BP 132/65; PULSE 82; RESP 16; TEMP 37.1; O2SAT 97
== END 2025-11-10 15:31 | disposition home or self-care (01) ==
PROVIDERS: Physician Assistant; Emergency Provider Emergency Medicine Emergency Medical Services; PCP Internal Medicine
DX: J10.1 Influenza due to other identified influenza virus with other respiratory manifestations (principal); N39.0 Urinary tract infection, site not specified; Z03.818 Encounter for observation for suspected exposure to other biological agents ruled out; Z79.899 Other long term (current) drug therapy
CPT/HCPCS: 36415; 74177; 80048; 80076; 81001; 83690; 83735; 85025; 87637; 96361; 96374; 96375; 99284; 99285; J2270; J2405; Q9967

== ENCOUNTER → 2025-11-10 13:39 | Outpatient (BNV) | payer MEDICARE, MEDICAID, SELFPAY | PROVIDERS: Emergency Provider Emergency Medicine Emergency Medical Services; PCP Internal Medicine; Visit Provider Radiology Diagnostic Radiology | DX: K83.8 Other specified diseases of biliary tract (principal); Z90.49 Acquired absence of other specified parts of digestive tract | CPT/HCPCS: 74177 ==